=== PATIENT | female | born 1960 | race Caucasian/White ===

== ENCOUNTER → 2017-08-10 13:58 | Outpatient (CLI) | payer OTHER, SELFPAY ==
[2017-08-10 18:47] LABS: Anion Gap 9 (5-15); BUN 12 mg/dL (7-18); Calcium,Total 8.9 mg/dL (8.5-10.1); Chloride 106 mmol/L (98-107); EST Glomerular Filtration Rate 78 mL/min (>60); Est Glom Filt Rate - Afr Amer 95 mL/min (>60); Estradiol < 11.0 pg/mL; Glucose 89 mg/dL (74-106); Potassium 3.6 mmol/L (3.5-5.1); Sodium Level 141 mmol/L (136-145); Thyroid Stim Hormone (TSH) 0.73 uIU/mL (0.358-3.74)
[2017-08-12 11:32] LABS: DHEA Sulfate 58.9 ug/dL (29.4-220.5)
== END ==
LOC: MFPLAB 13:58
PROVIDERS: Family Provider Family Medicine; PCP Family Medicine; Visit Provider Family Medicine
DX: L67.8 Other hair color and hair shaft abnormalities (principal); I10 Essential (primary) hypertension
CPT/HCPCS: 36415; 80048; 82533; 82627; 82670; 84403; 84443; 82626

== ENCOUNTER 2017-12-17 12:30 | Outpatient (RCR) | payer OTHER, SELFPAY ==
--- NOTE | 2017-11-30 13:24 | HP.PTEVAL_ITS ---
Patient's Visit Information MIKE PERDOMO is a 57 year old F referred to Physical Therapy by Miles Faustin with a diagnosis of L shoulder pain. Date of Evaluation: 11/30/17 Physical Therapist: Abdoulaye Garcia DPT, [place] - Visit Plan Frequency: up to 3x/week Duration: 4-6 Weeks Plan: 3x/week for 2 weeks then weeklya s needed for. 1. US nonthermal to L supraspinatus. 2. Gentle PROM and grade 1-2 mobs to g-h joint L. 3. Teach scap and RC strength and progress to HEP. 4. focus on posture and activity modification to diminish inflammation. - Subjective Subjective: L shoulder i can't lift it Hurts when she tries to lift. Has been this way for 3-4 months insidously. Carries a bag on shoulder. 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 It is painful every day at work. usually OK at rest. Pushing car door opens hurts or turning wheel with L hand. Sleep is interrupted as she tends to be a L side sleeper. Dressing putting shirts on is painful. R handed so can do most of home duties. Read is hobby. - Pain R shoulder pain Pain Intensity (Out of 10): 0 Pain Intensity Range: 0, 8 Comment: pushing and lifting. - Objective Posture is forward head and protracted scapula. Tender to palpation in supra and infra muscle belly and more so over supra tendon. Lifting L UE overhead is painful but full aROM flexion and only to 90 abduction. long ever arm more painful than short. PROM full and much less painful flexion adn abd. IR/ER active is WNL, slight L IR main. Elbow and wrist AROM WFL. R shoulder AROM normal. strength L ext rotation strong and painful, IR strong, flexion and empty can and abduction all painful and 3+ in willing range. bicep and tricep WNL strengtha dn without pain. + L juan Jeffrey and + L Amelia. , - ext rotation lag test. C/S AROM WFL and 60 ext, 65 B rotation without pain. - c/s compression test today - Goals Goal 1:: Patient report pain 1/10 at worst and 75% better overall. Goal Time Frame: 4-6 Weeks Goal 2:: Lift L UE overhead without pain into abduction Goal Time Frame: 4-6 Weeks Goal 3:: Sleep without waking at night or interruption. Goal Time Frame: 4-6 Weeks Goal 4:: Dress self without pain Goal Time Frame: 4-6 Weeks Goal 5:: Work without noticing increased pain. Goal Time Frame: 4-6 Weeks - Rehabilitation Potential Physical Therapy Diagnosis: L supraspinatus tendonits, impingement. Rehabilitation Potential: Good - Anticipated Interventions Patient/Client Instruction: Educate patient on: Condition, Plan of Care For the Purpose of:: To decrease pain, To increase ROM, To improve performance and independence with ADL's, To improve ability of physical actions for home/ community/work/leisure Therapeutic Exercise to Include: Strength training, Passive ROM, Active ROM, Scapular Strength/Stabilization Comment: HILARY adn postural/scapula strength. For the Purpose of:: To decrease pain, To increase ROM, To improve muscle performance and motor function, To improve ability of physical actions for home/ community/work/leisure Manual Therapy Techniques to Include: Mobilization, Passive ROM For the Purpose of:: To decrease pain, To improve nutrient delivery to tissue, To improve ability of physical actions for home/community/work/leisure Cryotherapy (ice pack, ice massage): Yes Ultrasound (thermal/non thermal): Yes - nonthermal to L supraspinatus For the Purpose of:: To decrease pain, To improve ability of physical actions for home/community/work/leisure Thank you for the opportunity to evaluate your patient. For Medicare and Medicare HMO plans, please review the plan of care and approve it. It will need to be FAXED BACK to us at [phone] for Medicare purposes. Please let me know if there are questions or concerns regarding this plan of care. Physician Signature: Date:
--- NOTE | 2017-12-17 13:23 | HP.PTDCSUM_ITS ---
HP - PT D/C Summary It has been my pleasure to treat MIKE PERDOMO under orders from Miles Faustin, for the diagnosis of L shoulder pain for a total of 7 visit( s). Discharge Date: 12/17/17 Please see the following information for a summary of their discharge status. - Subjective Subjective: Still gets Pain Lshoulder with lifting but ROM is a little better. Co-workers help with heavier lifting. still hurts to get dressed with shirts and reaching OH. Pain to 8/10 transiently. No pain at rest. Sleep is better on back. No f/u with doctor Roxie. - Pain R shoulder pain Pain Intensity (Out of 10): 0 left shoulder Pain Intensity (Out of 10): 0 - Overall Improvement % Improvement: 25 - Objective Objective/Function: Full aROM but pain over 120 abd and flexion with Long lever arm. Unable to abd with IR L shoulder. Strength in er 4- adn ir 4. Pain with ext rotation. Flexion and abduction strength at 4 adn 3+ respectively with pain. OVERALL VERY LITTLE IMPROVEMENT BUT NO POSITIVE ROTATOR CUFF TESTS(EXT ROTATION LAG TEST OR DROP ARM TEST) - Goals Goal 1:: Patient report pain 1/10 at worst and 75% better overall. Goal Progress: Not Progressing Goal 2:: Lift L UE overhead without pain into abduction Goal Progress: Not Progressing Goal 3:: Sleep without waking at night or interruption. Goal Progress: Progressing Goal 4:: Dress self without pain Goal Progress: Not Progressing Goal 5:: Work without noticing increased pain. Goal Progress: avoiding OH - Plan Plan: D/C , RECOMMEND RETURN TO DOCTOR FOR NEXT MEDICAL STEP(MRI) PROGRESS IS VERY SLOW. - D/C Information Discharge Comments: Pt to return to doctor for next medical step as progress is frustratingly slow. If there are questions or concerns regarding this patient's physical therapy, please feel free to call me at [phone]. Thank you for the referral of this patient. Sincerely, Abdoulaye Garcia, DPT, [place]
== END 2017-12-17 19:00 | disposition home or self-care (01) ==
LOC: PT 12:30
PROVIDERS: Family Provider Family Medicine; PCP Family Medicine; Visit Provider Family Medicine
DX: S46.012D Strain of muscle(s) and tendon(s) of the rotator cuff of left shoulder, subsequent encounter (principal)
CPT/HCPCS: 97035; 97110; 97140; 97162; 97530

== ENCOUNTER → 2018-02-15 16:41 | Outpatient (CLI) | payer OTHER, SELFPAY ==
--- NOTE | 2018-02-15 16:44 | RAD_ITS ---
STUDY: X-RAY - LEFT SHOULDER REASON FOR EXAM: Female, 57 years old. Limited range of motion x6 months TECHNIQUE: 4 view(s) of the shoulder. COMPARISON: None. FINDINGS: There is mild degenerative arthrosis of the glenohumeral articulation. There is degenerative arthrosis of the acromioclavicular joint without inferior osseous spur formation. Normal acromion. Normal humeral head and visualized proximal humerus. The soft tissue structures are unremarkable. Normal visualized pulmonary apex. RAD/Shoulder min 2 Views IMPRESSION: Degenerative arthrosis Electronically Signed: Gurjit Lea MD at 17:43 EST , Service support ,
== END ==
LOC: RAD.FUTURE 16:42
PROVIDERS: Family Provider Family Medicine; PCP Family Medicine; Referring Provider Family Medicine; Visit Provider Family Medicine
DX: M25.512 Pain in left shoulder (principal)
CPT/HCPCS: 73030

== ENCOUNTER → 2018-02-23 17:24 | Outpatient (CLI) | payer OTHER, SELFPAY ==
--- NOTE | 2018-02-23 18:15 | MRI_ITS ---
STUDY: MRI LEFT SHOULDER REASON FOR EXAM: Left shoulder pain and decreased range of motion for one year, no specific injury. TECHNIQUE: Standardized fat and water weighted pulse sequences were obtained in all 3 orthogonal planes. COMPARISON: Radiographs 02/15/2018. FINDINGS: There is supraspinatus and infraspinatus tendinosis (T2 coronal images 10-15) without discrete tendon tear. Normal subscapularis tendon. Normal teres minor tendon. There is a small cyst at the supraspinatus musculotendinous junction (T2 coronal image 12) measuring 0.5 cm in length. Normal infraspinatus muscle. Normal subscapularis muscle. Normal teres minor muscle. Normal glenohumeral articulation. There is mild cystic change/bone edema in the anterior aspect of the greater tuberosity. Normal biceps labral complex. Normal intracapsular long biceps tendon. Normal labrum. Normal capsulo- ligamentous complex. There is acromioclavicular arthrosis with an undersurface osteophyte of the distal clavicle (T2 sagittal image 7). There is a Type I morphology (flat undersurface), with a neutral orientation. There is a small volume of subacromial-subdeltoid bursal fluid (T2 coronal images 8-15). Normal visualized coracohumeral and coracoacromial ligaments. Normal deltoid muscle. Normal trapezius muscle. MRI/Upper Ext Joint Only(Routine) IMPRESSION: Supraspinatus and infraspinatus tendinosis without demonstrated rotator cuff tear. Acromioclavicular arthrosis. Mild subacromial-subdeltoid bursitis. Electronically Signed: Bill Nicolas MD at 13:00 EST Tel , Service support ,
== END ==
LOC: MRI 17:25
PROVIDERS: Family Provider Family Medicine; PCP Family Medicine; Referring Provider Family Medicine; Visit Provider Family Medicine
DX: M25.512 Pain in left shoulder (principal)
CPT/HCPCS: 73221

== ENCOUNTER → 2018-05-18 19:13 | Outpatient (CLI) | payer OTHER, SELFPAY ==
[2018-05-18 19:14] LABS: Bacteria 0 SEEN /hpf (None Seen); Mucous, Urine 0 SEEN /hpf (<or=2+)
[2018-05-18 19:43] LABS: Color, Urine Yellow (Yellow); Glucose, Dipstick Normal (Normal); Ketone-Dipstick Negative (Negative); Leukocyte Esterase-Dipstick Negative /ul (Negative); Nitrite-Dipstick Negative (Negative); Occult Blood-Urine 50 /ul (Negative); Protein-Dipstick Negative (Negative); Urine Bilirubin Dipstick Negative (Negative); Urine Clarity Clear (Clear); Urine Urobilinogen Normal (Normal)
[2018-05-18 19:49] LABS: Red Blood Cells-Urine 5-10 SEEN /hpf (0-5); Squamous Epithelial Cells - UA 0-5 SEEN /hpf (5-10); White Blood Cells 0-5 SEEN /hpf (0-5)
== END ==
PROVIDERS: Family Provider Family Medicine; PCP Family Medicine; Referring Provider Family Medicine; Visit Provider Family Medicine
DX: I10 Essential (primary) hypertension (principal)
CPT/HCPCS: 81001; 87086

== ENCOUNTER → 2018-08-31 12:03 | Outpatient (CLI) | payer OTHER, SELFPAY ==
--- NOTE | 2018-08-31 12:10 | RAD_ITS ---
STUDY: X-RAY - PELVIS AND BILATERAL HIPS REASON FOR EXAM: Female, 57 years old. Left-sided hip and back pain. TECHNIQUE: AP view of the pelvis.? 2 views of the right hip, and 2 views of the left hip were obtained. COMPARISON: None. FINDINGS: There is a non-specific bowel gas pattern. There are occasional calcifications of a vascular nature projecting in the pelvic soft tissues. Incidental note of degenerative change in the lower lumbar spine as well as a transitional lumbosacral vertebra with a complete fusion to the upper sacral ala. Normal bilateral iliac wings, sacroiliac joints and visualized sacrum. Normal bilateral superior and inferior pubic rami. Normal pubic symphysis. Normal bilateral ischial tuberosities. There is no demonstrated osseous destructive lesion or acute fracture. There are early osteoarthritic changes of the right femoral head with marginal osteophyte formation. There is osteoarthritic spur formation of the right acetabular rim. Normal right hip joint. Normal visualized left femoral head. Normal left acetabulum. Normal left hip joint. RAD/Hips B/L min 2 views w/ Pelvis IMPRESSION: 1. 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 2. Degenerative changes noted in the lower lumbar spine and right hip. Electronically Signed: Gurjit Shell MD at 15:06 EDT , Service support ,
--- NOTE | 2018-08-31 12:10 | RAD_ITS ---
STUDY: X-RAY - SACROILIAC JOINTS REASON FOR EXAM: Female, 57 years old. Lumbar radiculopathy. TECHNIQUE: 3 view(s) of the sacroiliac joints were obtained. COMPARISON: None. FINDINGS: Normal bilateral sacroiliac joints. Incidental note of a transitional lumbosacral vertebra with incomplete fusion of the left transverse process of the upper sacral ala. Otherwise, normal visualized sacral ala and sacrum. There are multilevel degenerative changes of the lumbar spine. Normal visualized iliac bones. There are occasional small vascular calcifications projecting the pelvic soft tissues. RAD/S-I Jts 3 or More Views IMPRESSION: Degenerative changes of the lower lumbar spine, as well as transitional lumbosacral vertebra with incomplete fusion to the upper sacral ala. The sacroiliac joints themselves are unremarkable. Electronically Signed: Gurjit Shell MD at 15:08 EDT , Service support ,
--- NOTE | 2018-08-31 12:10 | RAD_ITS ---
STUDY: X-RAY - LUMBAR SPINE REASON FOR EXAM: Female, 57 years old. Lumbar radiculopathy. TECHNIQUE: 5 view(s) of the lumbar spine were obtained. COMPARISON: None FINDINGS: Normal lumbar lordosis. There is a 9-10 degree dextroscoliosis of the lumbar spine centered at L3-4. There is minor retrolisthesis of L2 on L3 as well as borderline rightward subluxation of L3 on L4 and L4 on L5. Incidental note of a transitional lumbosacral vertebra with incomplete fusion of its left transverse processes to the upper sacral ala. There is multilevel endplate spondylosis of the lumbar vertebrae. There is multi-level degenerative disc disease with multi-level disc space narrowing. There is no demonstrated osseous destructive lesion or acute fracture. There are degenerative arthroses of the bilateral facets between the L5 vertebra and transitional body, as well as L4-5 on the right. There is atherosclerotic calcification of the abdominal aorta. RAD/L/S Spine Min 4 Views IMPRESSION: Degenerative changes of the spine, as detailed above. Also noted is a transitional lumbosacral vertebra with incomplete osseous fusion of its transverse processes to the upper sacral ala. Electronically Signed: Gurjit Shell MD at 15:11 EDT , Service support ,
[2018-08-31 12:33] LABS: Mucous, Urine 0 SEEN /hpf (<or=2+)
[2018-08-31 14:03] LABS: Color, Urine Yellow (Yellow); Glucose, Dipstick Normal (Normal); Ketone-Dipstick Negative (Negative); Leukocyte Esterase-Dipstick 25 /ul (Negative); Nitrite-Dipstick Negative (Negative); Occult Blood-Urine 25 /ul (Negative); Protein-Dipstick Negative (Negative); Specific Gravity, Urine 1.015 (1.002-1.030); Urine Bilirubin Dipstick Negative (Negative); Urine Clarity Clear (Clear); Urine Urobilinogen Normal (Normal)
[2018-08-31 14:18] LABS: Bacteria 1+ /hpf (None Seen); Red Blood Cells-Urine 5-10 SEEN /hpf (0-5); Squamous Epithelial Cells - UA 5-10 SEEN /hpf (5-10); White Blood Cells 0-5 SEEN /hpf (0-5)
== END ==
LOC: MTRAD 12:07
PROVIDERS: Family Provider Family Medicine; PCP Family Medicine; Referring Provider Family Medicine; Visit Provider Family Medicine
DX: M54.16 Radiculopathy, lumbar region (principal); M25.559 Pain in unspecified hip
CPT/HCPCS: 72110; 72202; 73521; 81001

== ENCOUNTER → 2018-09-14 12:11 | Outpatient (CLI) | payer OTHER, SELFPAY ==
[2018-09-14 15:28] LABS: Absolute Lymphocyte Count 1.99 X10^3/ul (0.83-4.51); Absolute Neutrophil Count 6.3 X10^3/uL (2.0-7.7); Basophil# 0.05 X10^3/uL; Basophil% 0.5 % (0-1); Eosinophil# 0.28 X10^3/uL; Hematocrit 48.2 % (37-47); Lymphocyte # 1.99 X10^3/ul (4.0); Lymphocyte % 21.1 % (19-41); Mean Corp Hgb Conc 33.2 g/gl (32-36); Mean Corpuscular Hgb 29.7 pg (27.0-32.0); Mean Corpuscular Volume 89.4 fL (81-99); Mean Platelet Vol. 9.5 fl (6.2-12.0); Monocyte# 0.79 X10^3/uL; Monocyte% 8.4 % (0-10); Neutrophil % 66.7 % (47-70); Platelet Count 245 K/mm3 (150-450); RBC Distribution Width CV 13.7 % (11.6-14.6); RBC Distribution Width SD 44.4 fl (35.1-43.9); Red Blood Count 5.39 M/mm3 (4.2-5.4); White Blood Count 9.4 K/mm3 (4.4-11.0)
[2018-09-14 15:34] LABS: POSITIVE COUNT NO; POSITIVE DIFFERENTIAL NO; POSITIVE MORPHOLOGY NO
[2018-09-14 15:56] LABS: AST(SGOT) 22 U/L (15-37); Alanine Aminotransfer ALT/SGPT 27 U/L (13-56); Albumin, Serum 3.9 g/dL (3.2-5.0); Alkaline Phosphatase 66 U/L (45-117); Anion Gap 5 (5-15); BUN 17 mg/dL (7-18); BUN/Creat Ratio 19.4 RATIO (10-20); Chloride 104 mmol/L (98-107); Cholesterol 151 mg/dL (200); Creatinine, Serum 0.88 mg/dL (0.55-1.02); EST Glomerular Filtration Rate 70 mL/min (>60); Est Glom Filt Rate - Afr Amer 85 mL/min (>60); Globulin 3.8 g/dL (2.2-4.2); Glucose 88 mg/dL (74-106); High Density Lipoprotein 33 mg/dL; Potassium 3.4 mmol/L (3.5-5.1); Protein, Total 7.7 g/dL (6.4-8.2); Sodium Level 136 mmol/L (136-145); Thyroid Stim Hormone (TSH) 0.98 uIU/mL (0.358-3.74); Triglycerides 232 mg/dL; Very Low Density Lipoprotein 46 mg/dL (5-40)
[2018-09-14 16:14] LABS: Vitamin D,25 Hydroxy 52.9 ng/mL (29.95-100.01)
[2018-09-15 14:21] LABS: Ferritin 247 ng/mL (8-252); Iron 46 ug/dL (50-170); Iron Binding Capacity,Total 303 ug/dL (250-450); PERCENT IRON SATURATION 15.2 % (15.0-55.0)
== END ==
LOC: MFPLAB 12:11
PROVIDERS: Family Provider Family Medicine; PCP Family Medicine; Referring Provider Family Medicine; Visit Provider Family Medicine
DX: D75.1 Secondary polycythemia (principal); E78.5 Hyperlipidemia, unspecified; Z72.0 Tobacco use; I10 Essential (primary) hypertension; E55.9 Vitamin D deficiency, unspecified
CPT/HCPCS: 36415; 80053; 80061; 82306; 82728; 83540; 83550; 84443; 85025

== ENCOUNTER → 2018-09-16 11:36 | Outpatient (CLI) | payer OTHER, SELFPAY ==
[2018-09-18 11:33] LABS: Transferrin 251 mg/dL (200-370)
== END ==
LOC: MFPLAB 11:37
PROVIDERS: Family Provider Family Medicine; PCP Family Medicine; Referring Provider Family Medicine; Visit Provider Family Medicine
DX: D75.1 Secondary polycythemia (principal)
CPT/HCPCS: 36415; 84466

== ENCOUNTER → 2018-09-21 | Outpatient (CLI) | payer OTHER, SELFPAY ==
--- NOTE | 2018-09-21 13:15 | BI_ITS ---
MAMMOGRAPHY - BILATERAL SCREENING REASON FOR EXAM: Female, 57 years old. Routine annual screening examination. PERTINENT HISTORY: Non-contributory. TECHNIQUE: Digital bilateral breast ethel (3D mammographic acquisition) in the CC and MLO projections. 2-D mediolateral oblique (MLO) and craniocaudad (CC) views of both breasts were obtained. CAD: Full Field Digital Mammography with Computer Added Detection was performed. COMPARISON: Comparison is made with prior study dated October 06, 2007. FINDINGS: Breast Composition: There are scattered areas of fibroglandular density. There are no dominant masses or suspicious calcifications. No other significant abnormalities are identified. There has been no significant change since the prior study. BI/SCREEN MAMM (CAD) W/ETHEL BILAT IMPRESSION: Stable bilateral screening mammogram. Yearly follow-up mammogram recommended. (A) ASSESSMENT CATEGORY: BIRADS Category 1: Negative. A letter regarding these results will be sent to the patient by the facility within 30 days. Approximately 10% of breast cancers are not detected by mammography. A normal mammogram should not delay biopsy of a clinically suspicious abnormality. [id number] Electronically Signed: Damon Jimenez, at 15:25 EDT , Service support ,
== END | disposition home or self-care (01) ==
LOC: OPBI 13:14
PROVIDERS: PCP Family Medicine; Referring Provider Family Medicine; Visit Provider Family Medicine
DX: Z12.31 Encounter for screening mammogram for malignant neoplasm of breast (principal)
CPT/HCPCS: 77063; 77067

== ENCOUNTER → 2018-10-04 15:38 | Outpatient (CLI) | payer OTHER, SELFPAY ==
--- NOTE | 2018-10-04 15:43 | CT_ITS ---
STUDY: CT ABDOMEN AND PELVIS WITH AND WITHOUT CONTRAST REASON FOR EXAM: Female, 58 years old. Microscopic hematuria. RADIATION DOSAGE (If Supplied By Facility): CTDIvol = ( 19.42 ) mGy, DLP = ( 2167.00 ) mGycm TECHNIQUE: Transaxial images were obtained from the dome of the diaphragm to the symphysis pubis without oral contrast. 100ml IV/Oral Isovue 300 was administered. Sagittal and coronal images were reconstructed. Individualized dose optimization techniques were used for this CT. COMPARISON: None. FINDINGS: The visualized lung bases are unremarkable. The visualized portions of the heart are within normal limits. Normal shape and size of the liver. 1.9 cm low-attenuation lesion in the posterior dome of the liver on axial image 21. 1.6 cm low-attenuation lesion in the periphery of the anterior segment of the right hepatic lobe, image 26. These may be hemangiomas. Suggest further evaluation with dynamic contrast CT of the liver. Normal gallbladder and extrahepatic biliary system. Normal spleen. Normal pancreas. Normal bilateral adrenal glands. No acute abnormalities of the kidneys. Bilateral nonobstructing renal stones are seen including a 6 mm stone in the lower pole of the right kidney and several stones in all segments of the left kidney. Multiple left cortical scars. Symmetric renal contrast. Normal collecting systems. Normal visualized stomach. Normal small intestine. Normal colon. The appendix is visualized and appears normal. There is diffuse atherosclerotic calcification of the abdominal aorta, without a demonstrated aneurysm. Normal inferior vena cava. Normal retroperitoneum. Normal urinary bladder. There is absence of the uterus consistent with a prior hysterectomy. Normal abdominal wall. There are diffuse degenerative changes of the visualized lumbar spine. CT/CT Abd/Pelvis W/WO Contrast IMPRESSION: There is no definite acute abnormality. Numerous bilateral renal stones with no current obstruction. Low-attenuation lesions in the liver, suggestive of hemangiomas. Dynamic contrast CT recommended. Electronically Signed: Saul Wallace MD at 17:08 EDT , Service support ,
== END ==
PROVIDERS: Family Provider Family Medicine; PCP Family Medicine; Referring Provider Family Medicine; Visit Provider Family Medicine
DX: R31.29 Other microscopic hematuria (principal)
CPT/HCPCS: 74178; Q9967

== ENCOUNTER → 2018-11-22 07:40 | Outpatient (CLI) | payer OTHER, SELFPAY ==
--- NOTE | 2018-11-22 07:43 | CT_ITS ---
STUDY: CT ABDOMEN WITH CONTRAST REASON FOR EXAM: Female, 58 years old. RADIATION DOSAGE (If Supplied By Facility): CTDIvol = ( 17.96 ) mGy, DLP = ( 1722.57 ) mGycm TECHNIQUE: Transaxial images were obtained post I.V. administration of 100ml ml of Isovue 300 contrast, and without oral contrast. Sagittal and coronal images were reconstructed. Individualized dose optimization techniques were used for this CT. COMPARISON: CT abdomen and pelvis 10/04/2018 FINDINGS: Body wall soft tissues: No acute process. Osseous structures: No acute process. Multilevel low thoracic and lumbar degenerative disc disease and facet hypertrophy contributing to at least mild multilevel foraminal stenosis somewhat more prominent at L4-L5 and L3-L4. Mild scoliosis and osteopenia. Inferior chest: Clear lungs, no cardiomegaly or pericardial effusion. Mild thickening of the wall the distal esophagus. Hepatobiliary: Small foci of fatty infiltration of the liver, segment 4, and adjacent left liver, flanking the ligamentum. There are no suspicious liver lesions. Unremarkable gallbladder and biliary tree. Pancreas: Normal. Spleen: Normal. Adrenal glands: Normal. Urinary tract: No acute process. Stable tiny renal cysts. Small nonobstructing calyceal calculi of the left kidney, the largest measuring about 4 mm. Retroperitoneum: Normal. Vasculature: Mild aortic atherosclerosis. Stomach: Normal. Small bowel: Visualized portions exhibit no acute process. Large bowel: Visualized portions exhibit no acute process. CT/Abdomen WITH IV Contrast IMPRESSION: Focal fatty infiltration of liver. No suspicious lesions. Urolithiasis without hydronephrosis. Nonobstructing calyceal calculi are stable compared to prior imaging. Electronically Signed: Shaq Hunt MD at 9:57 EDT Tel , Service support ,
== END ==
LOC: CT 07:40
PROVIDERS: Family Provider Family Medicine; PCP Family Medicine; Referring Provider Family Medicine; Visit Provider Family Medicine
DX: K76.9 Liver disease, unspecified (principal)
CPT/HCPCS: 74160; Q9967

== ENCOUNTER → 2019-06-29 13:39 | Outpatient (CLI) | payer OTHER, SELFPAY ==
[2019-06-29 13:44] LABS: Bacteria 0 SEEN /hpf (None Seen); Mucous, Urine 0 SEEN /hpf (<or=2+)
[2019-06-29 15:28] LABS: Color, Urine Yellow (Yellow); Glucose, Dipstick Normal (Normal); Ketone-Dipstick Negative (Negative); Leukocyte Esterase-Dipstick 25 /ul (Negative); Nitrite-Dipstick Negative (Negative); Occult Blood-Urine 25 /ul (Negative); Protein-Dipstick Negative (Negative); Urine Bilirubin Dipstick Negative (Negative); Urine Clarity Clear (Clear); Urine Urobilinogen Normal (Normal)
[2019-06-29 15:29] LABS: Absolute Lymphocyte Count 2.05 X10^3/uL (0.83-4.51); Absolute Neutrophil Count 4.3 X10^3/uL (2.0-7.7); Basophil# 0.08 X10^3/uL; Eosinophil# 0.25 X10^3/uL; Eosinophils% 3.3 % (0-5); Hematocrit 47.9 % (37-47); Hemoglobin 15.6 g/dL (12.0-15.0); Lymphocyte # 2.05 X10^3/ul (4.0); Lymphocyte % 26.8 % (19-41); Mean Corp Hgb Conc 32.6 g/dL (32-36); Mean Corpuscular Hgb 29.8 pg (27.0-32.0); Mean Corpuscular Volume 91.6 fL (81-99); Monocyte# 0.87 X10^3/uL; Monocyte% 11.4 % (0-10); NRBC Flagged by Analyzer 0 % (0-5); Neutrophil # 4.34 X10^3/uL (2.7-7.7); Neutrophil % 56.8 % (47-70); Platelet Count 265 K/mm3 (150-450); RBC Distribution Width CV 13.2 % (11.6-14.6); RBC Distribution Width SD 44.7 fl (35.1-43.9); Red Blood Count 5.23 M/mm3 (4.2-5.4); White Blood Count 7.6 K/mm3 (4.4-11.0)
[2019-06-29 15:51] LABS: Red Blood Cells-Urine 0-5 SEEN /hpf (0-5); Squamous Epithelial Cells - UA 0-5 SEEN /hpf (5-10); White Blood Cells 0-5 SEEN /hpf (0-5)
[2019-06-29 16:08] LABS: Vitamin D,25 Hydroxy 62.5 ng/mL
[2019-06-29 16:11] LABS: ALB/GLOB Ratio 1.1 RATIO (0.9-2.4); AST(SGOT) 20 U/L (15-37); Alanine Aminotransfer ALT/SGPT 27 U/L (13-56); Alkaline Phosphatase 64 U/L (45-117); Anion Gap 7 (5-15); BUN 20 mg/dL (7-18); BUN/Creat Ratio 27.4 RATIO (10-20); Calcium,Total 9.1 mg/dL (8.5-10.1); Chloride 101 mmol/L (98-107); Cholesterol 140 mg/dL (200); Creatinine, Serum 0.73 mg/dL (0.55-1.02); EST Glomerular Filtration Rate 87 mL/min (>60); Est Glom Filt Rate - Afr Amer 105 mL/min (>60); Globulin 3.7 g/dL (2.2-4.2); Glucose 77 mg/dL (74-106); High Density Lipoprotein 38 mg/dL; Potassium 3.4 mmol/L (3.5-5.1); Protein, Total 7.7 g/dL (6.4-8.2); Sodium Level 136 mmol/L (136-145); Triglycerides 144 mg/dL; Very Low Density Lipoprotein 29 mg/dL (5-40)
== END ==
LOC: MFPLAB 13:40
PROVIDERS: PCP Family Medicine; Referring Provider Family Medicine; Visit Provider Family Medicine
DX: K76.9 Liver disease, unspecified (principal); E78.5 Hyperlipidemia, unspecified; E55.9 Vitamin D deficiency, unspecified; Z72.0 Tobacco use
CPT/HCPCS: 36415; 80053; 80061; 81001; 82306; 85025

== ENCOUNTER → 2019-09-27 | Outpatient (CLI) | payer OTHER, SELFPAY ==
[2019-09-27 15:24] LABS: Absolute Lymphocyte Count 2.08 X10^3/uL (0.83-4.51); Absolute Neutrophil Count 5.4 X10^3/uL (2.0-7.7); Basophil# 0.06 X10^3/uL; Basophil% 0.7 % (0-1); Eosinophil# 0.23 X10^3/uL; Eosinophils% 2.7 % (0-5); Hematocrit 46.5 % (37-47); Hemoglobin 15.1 g/dL (12.0-15.0); Lymphocyte # 2.08 X10^3/ul (4.0); Lymphocyte % 24.1 % (19-41); Mean Corp Hgb Conc 32.5 g/dL (32-36); Mean Corpuscular Hgb 30.2 pg (27.0-32.0); Mean Platelet Vol. 9.1 fl (6.2-12.0); Monocyte# 0.79 X10^3/uL; Monocyte% 9.1 % (0-10); NRBC Flagged by Analyzer 0 % (0-5); Neutrophil # 5.44 X10^3/uL (2.7-7.7); Neutrophil % 62.9 % (47-70); Platelet Count 248 K/mm3 (150-450); RBC Distribution Width CV 13.1 % (11.6-14.6); RBC Distribution Width SD 44.7 fl (35.1-43.9); White Blood Count 8.6 K/mm3 (4.4-11.0)
[2019-09-27 16:12] LABS: Ferritin 180 ng/mL (8-252); Iron 34 ug/dL (50-170); Iron Binding Capacity,Total 318 ug/dL (250-450)
[2019-09-29 05:26] LABS: Transferrin 235 mg/dL (192-364)
== END | disposition home or self-care (01) ==
LOC: MFPLAB 13:56
PROVIDERS: PCP Family Medicine; Referring Provider Family Medicine; Visit Provider Family Medicine
DX: D75.1 Secondary polycythemia (principal)
CPT/HCPCS: 36415; 82728; 83540; 83550; 84466; 85025

== ENCOUNTER → 2019-10-04 | Outpatient (CLI) | payer OTHER, SELFPAY ==
--- NOTE | 2019-10-04 14:52 | CT_ITS ---
STUDY: LOW DOSE CT LUNG CANCER SCREENING REASON FOR EXAM: Female, 59 years old. Screening. Tobacco use. 30 pack-year history. RADIATION DOSAGE (If Supplied By Facility): CTDIvol = ( 2.55 ) mGy, DLP = ( 84.87 ) mGycm TECHNIQUE: No contrast was administered. Low dose technique was utilized (average mAS-38 and kVp 120). 1.25 mm axial source images with a slice interval of 1.25-mm were reconstructed in lung windows. 2.5 mm axial source images with a slice interval of 2.5-mm were reconstructed in lung windows. 5.0 mm axial source images with a slice interval of 5.0-mm were reconstructed in soft tissue windows. Nodule measured using lung windows on PACS and/or independent workstation with automated measurement of minimum and maximum diameter. Nodule measurement reported as average diameter rounded to the nearest whole number. Growth is defined as an increase ins size of greater than 1.5 mm. COMPARISON: None. NODULES: Nodule #: 1 Density: Solid Lung location: Right upper lobe: 1 cm from pleura Location in series: Series Number: [id number] Image: 42 Size - D1 x D2 mm: 2 x 2 mm: 2 mm average diameter Margin: Indistinct Shape: Round Calcification: No Fat: No Temporal comparison: None Nodule #: 2 Density: Solid Lung location: Left upper lobe: 0.3 cm from pleura Location in series: Series Number: [id number] Image: 78 Size - D1 x D2 mm: 5 x 4 mm: 5 mm average diameter Margin: Smooth Shape: Oval Calcification: No Fat: No Temporal comparison: None Nodule #: 3 Density: Solid Lung location: Right middle lobe: 0.9 cm from pleura Location in series: Series Number: [id number] Image: 128 Size - D1 x D2 mm: 3 x 3 mm: 3 mm average diameter Margin: Irregular Shape: Rounded Calcification: No Fat: No Temporal comparison: None Nodule #: 4 Density: Solid Lung location: Left upper lobe: Pleural-based Location in series: Series Number: [id number] Image: 153 Size - D1 x D2 mm: 4 x 4 mm: 4 mm average diameter Margin: Smooth Shape: Round Calcification: No Fat: No Temporal comparison: None Total lung nodules (excluding granulomas): 4 Emphysema: None Endobronchial lesion: None Aorta: Minimal atherosclerotic changes without aneurysm. Coronary arteries: Minimal coronary artery calcifications. Heart: Normal in size Pulmonary artery: Normal Mediastinal nodes: None Other chest and abdominal findings: Degenerative changes of the thoracic spine. CT/Low Dose CT Lung Screening IMPRESSION: Lung-RADS category 2 - Continue annual screening with LDCT in 12 months. IMPORTANT NOTES FOR USE: ACR Lung-RADS Version 1.0 Assessment Categories Release Date: August 01, 2013 Category: Coded 0-4 bases on nodule(s) with highest degree of suspicion. Negative screen is defined as categories 1 and 2; a positive screen is defined as categories 3 and 4. Category 3 and 4A nodules that are unchanged on interval CT should be coded as category 2, and individuals returned to screening in 12 months. Category 4X: Category 3 or 4 nodules with additional imaging findings that increase the suspicion of lung cancer, such as spiculation, GGN that doubles in size in 1 year, enlarged lymph notes, etc. Category Modifiers: S (significant finding unrelated to lung cancer) and C (prior history of treated lung cancer) may be added to the 0-4 Lung-RADS Electronically Signed: Reji Modi DO at 16:03 EDT Tel [phone], Service support ,
== END | disposition home or self-care (01) ==
LOC: CT 14:49
PROVIDERS: PCP Family Medicine; Referring Provider Family Medicine; Visit Provider Family Medicine
DX: F17.210 Nicotine dependence, cigarettes, uncomplicated (principal); Z12.2 Encounter for screening for malignant neoplasm of respiratory organs
CPT/HCPCS: G0297

== ENCOUNTER → 2019-12-20 | Outpatient (CLI) | payer OTHER, SELFPAY ==
[2019-12-20 08:14] LABS: Bacteria 0 SEEN /hpf (None Seen)
[2019-12-20 10:09] LABS: Absolute Lymphocyte Count 1.63 X10^3/uL (0.83-4.51); Absolute Neutrophil Count 6.7 X10^3/uL (2.0-7.7); Basophil# 0.07 X10^3/uL; Basophil% 0.7 % (0-1); Eosinophil# 0.25 X10^3/uL; Eosinophils% 2.7 % (0-5); Hematocrit 47.2 % (37-47); Hemoglobin 15.5 g/dL (12.0-15.0); Lymphocyte # 1.63 X10^3/ul (4.0); Lymphocyte % 17.4 % (19-41); Mean Corp Hgb Conc 32.8 g/dL (32-36); Mean Corpuscular Hgb 30.3 pg (27.0-32.0); Mean Corpuscular Volume 92.2 fL (81-99); Mean Platelet Vol. 9.3 fl (6.2-12.0); Monocyte# 0.64 X10^3/uL; Monocyte% 6.8 % (0-10); NRBC Flagged by Analyzer 0 % (0-5); Neutrophil # 6.74 X10^3/uL (2.7-7.7); Neutrophil % 71.9 % (47-70); Platelet Count 263 K/mm3 (150-450); RBC Distribution Width CV 13.8 % (11.6-14.6); RBC Distribution Width SD 47.1 fl (35.1-43.9); Red Blood Count 5.12 M/mm3 (4.2-5.4); White Blood Count 9.4 K/mm3 (4.4-11.0)
[2019-12-20 10:29] LABS: ALB/GLOB Ratio 1.1 RATIO (0.9-2.4); AST(SGOT) 18 U/L (15-37); Alanine Aminotransfer ALT/SGPT 28 U/L (13-56); Albumin, Serum 3.9 g/dL (3.2-5.0); Alkaline Phosphatase 60 U/L (45-117); Anion Gap 6 (5-15); BUN 16 mg/dL (7-18); BUN/Creat Ratio 19.2 RATIO (10-20); Calcium,Total 9.3 mg/dL (8.5-10.1); Chloride 103 mmol/L (98-107); Cholesterol 142 mg/dL (200); Creatinine, Serum 0.83 mg/dL (0.55-1.02); EST Glomerular Filtration Rate 74 mL/min (>60); Est Glom Filt Rate - Afr Amer 90 mL/min (>60); Ferritin 165 ng/mL (8-252); Globulin 3.6 g/dL (2.2-4.2); Glucose 94 mg/dL (74-106); High Density Lipoprotein 48 mg/dL; Iron 43 ug/dL (50-170); Iron Binding Capacity,Total 397 ug/dL (250-450); Potassium 3.5 mmol/L (3.5-5.1); Protein, Total 7.5 g/dL (6.4-8.2); Sodium Level 138 mmol/L (136-145); Triglycerides 100 mg/dL; Very Low Density Lipoprotein 20 mg/dL (5-40)
[2019-12-20 10:31] LABS: Vitamin D,25 Hydroxy 69.9 ng/mL
[2019-12-20 10:45] LABS: Color, Urine Yellow (Yellow); Glucose, Dipstick Normal (Normal); Ketone-Dipstick Negative (Negative); Leukocyte Esterase-Dipstick 25 /ul (Negative); Nitrite-Dipstick Negative (Negative); Occult Blood-Urine 50 /ul (Negative); Protein-Dipstick Negative (Negative); Specific Gravity, Urine 1.025 (1.002-1.030); Urine Bilirubin Dipstick Negative (Negative); Urine Clarity Sl. Cloudy (Clear); Urine Urobilinogen Normal (Normal)
[2019-12-20 10:57] LABS: Red Blood Cells-Urine 0-5 SEEN /hpf (0-5); White Blood Cells 0-5 SEEN /hpf (0-5)
[2019-12-20 10:58] LABS: Mucous, Urine 1+ /hpf (<or=2+)
[2019-12-21 05:35] LABS: Transferrin 264 mg/dL (192-364)
== END | disposition home or self-care (01) ==
LOC: MFPLAB 08:10
PROVIDERS: PCP Family Medicine; Referring Provider Family Medicine; Visit Provider Family Medicine
DX: I10 Essential (primary) hypertension (principal); D75.1 Secondary polycythemia; E78.5 Hyperlipidemia, unspecified; E55.9 Vitamin D deficiency, unspecified; Z72.0 Tobacco use
CPT/HCPCS: 36415; 80053; 80061; 81001; 82306; 82728; 83540; 83550; 84466; 85025

== ENCOUNTER → 2020-05-29 11:53 | Outpatient (CLI) | payer OTHER, SELFPAY ==
[2020-05-29 11:56] LABS: Mucous, Urine 0 SEEN /hpf (<or=2+); Squamous Epithelial Cells - UA 0 SEEN /hpf (5-10)
[2020-05-29 15:18] LABS: Color, Urine Yellow (Yellow); Glucose, Dipstick Normal (Normal); Ketone-Dipstick Negative (Negative); Leukocyte Esterase-Dipstick Negative /ul (Negative); Nitrite-Dipstick Negative (Negative); Occult Blood-Urine 25 /ul (Negative); Protein-Dipstick Negative (Negative); Urine Bilirubin Dipstick Negative (Negative); Urine Clarity Clear (Clear); Urine Urobilinogen Normal (Normal)
[2020-05-29 15:20] LABS: Absolute Neutrophil Count 5.9 X10^3/uL (2.0-7.7); Basophil# 0.06 X10^3/uL; Basophil% 0.7 % (0-1); Eosinophil# 0.34 X10^3/uL; Eosinophils% 3.8 % (0-5); Hemoglobin 14.5 g/dL (12.0-15.0); Lymphocyte % 20.1 % (19-41); Mean Corp Hgb Conc 32.2 g/dL (32-36); Mean Corpuscular Hgb 29.6 pg (27.0-32.0); Mean Corpuscular Volume 91.8 fL (81-99); Mean Platelet Vol. 9.3 fl (6.2-12.0); Monocyte# 0.82 X10^3/uL; Monocyte% 9.1 % (0-10); NRBC Flagged by Analyzer 0 % (0-5); Neutrophil % 65.7 % (47-70); Platelet Count 272 K/mm3 (150-450); RBC Distribution Width CV 13.6 % (11.6-14.6); RBC Distribution Width SD 45.8 fl (35.1-43.9)
[2020-05-29 15:35] LABS: Bacteria RARE /hpf (None Seen); Red Blood Cells-Urine 0-5 SEEN /hpf (0-5); White Blood Cells 0-5 SEEN /hpf (0-5)
[2020-05-29 15:49] LABS: Vitamin D,25 Hydroxy 48.2 ng/mL
[2020-05-29 15:59] LABS: ALB/GLOB Ratio 1.2 RATIO (0.9-2.4); AST(SGOT) 13 U/L (15-37); Alanine Aminotransfer ALT/SGPT 23 U/L (13-56); Albumin, Serum 3.8 g/dL (3.2-5.0); Alkaline Phosphatase 55 U/L (45-117); Anion Gap 6 (5-15); BUN 21 mg/dL (7-18); BUN/Creat Ratio 25.3 RATIO (10-20); Chloride 106 mmol/L (98-107); Cholesterol 146 mg/dL (200); Creatinine, Serum 0.83 mg/dL (0.55-1.02); EST Glomerular Filtration Rate 75 mL/min (>60); Est Glom Filt Rate - Afr Amer 90 mL/min (>60); Ferritin 98 ng/mL (8-252); Globulin 3.3 g/dL (2.2-4.2); Glucose 85 mg/dL (74-106); High Density Lipoprotein 42 mg/dL; Iron 41 ug/dL (50-170); Iron Binding Capacity,Total 352 ug/dL (250-450); Potassium 3.3 mmol/L (3.5-5.1); Protein, Total 7.1 g/dL (6.4-8.2); Sodium Level 138 mmol/L (136-145); Thyroid Stim Hormone (TSH) 0.55 uIU/mL (0.358-3.74); Triglycerides 133 mg/dL; Very Low Density Lipoprotein 27 mg/dL (5-40)
== END ==
LOC: MFPLAB 11:55
PROVIDERS: PCP Family Medicine; Referring Provider Family Medicine; Visit Provider Family Medicine
DX: E78.5 Hyperlipidemia, unspecified (principal); I10 Essential (primary) hypertension; E55.9 Vitamin D deficiency, unspecified; E61.1 Iron deficiency
CPT/HCPCS: 36415; 80053; 80061; 81001; 82306; 82728; 83540; 83550; 84443; 85025

== ENCOUNTER → 2020-10-03 14:51 | Outpatient (CLI) | payer OTHER, SELFPAY ==
[2020-10-03 16:10] LABS: Amphetamine Urine VISTA NEGATIVE (<1000 ng/mL); Barbiturate Urine VISTA NEGATIVE (< 200 ng/mL); Benzodiazepine Urine VISTA NEGATIVE (< 200 ng/mL); Cocaine Urine VISTA NEGATIVE (< 300 ng/mL); Ecstacy Urine VISTA NEGATIVE (< 500 ng/mL); Methadone Urine VISTA NEGATIVE (< 300 ng/mL); PCP Urine VISTA NEGATIVE (< 25 ng/mL); THC Urine VISTA NEGATIVE (< 50 ng/mL); Vista UDS pH Range 5
[2020-10-03 16:18] LABS: BUP Internal Control LINE = VALID (VALID); Buprenorphine Drug Screen Negative (<10 ng/mL)
== END ==
PROVIDERS: PCP Family Medicine; Referring Provider Anesthesiology Pain Medicine; Visit Provider Anesthesiology Pain Medicine
DX: F11.20 Opioid dependence, uncomplicated (principal)
CPT/HCPCS: 80307

== ENCOUNTER → 2021-01-01 10:26 | Outpatient (CLI) | payer OTHER, SELFPAY ==
[2021-01-01 15:33] LABS: Absolute Lymphocyte Count 1.87 X10^3/uL (0.83-4.51); Absolute Neutrophil Count 5.5 X10^3/uL (2.0-7.7); Basophil# 0.05 X10^3/uL; Basophil% 0.6 % (0-1); Eosinophil# 0.56 X10^3/uL; Eosinophils% 6.4 % (0-5); Hematocrit 45.5 % (37-47); Hemoglobin 14.8 g/dL (12.0-15.0); Lymphocyte # 1.87 X10^3/ul (0.83-4.51); Lymphocyte % 21.4 % (19-41); Mean Corp Hgb Conc 32.5 g/dL (32-36); Mean Corpuscular Hgb 30.1 pg (27.0-32.0); Mean Corpuscular Volume 92.7 fL (81-99); Mean Platelet Vol. 9.8 fl (6.2-12.0); Monocyte# 0.71 X10^3/uL; Monocyte% 8.1 % (0-10); NRBC Flagged by Analyzer 0 % (0-5); Neutrophil # 5.49 X10^3/uL (2.7-7.7); Platelet Count 223 K/mm3 (150-450); RBC Distribution Width CV 13.6 % (11.6-14.6); RBC Distribution Width SD 46.5 fl (35.1-43.9); Red Blood Count 4.91 M/mm3 (4.2-5.4); White Blood Count 8.7 K/mm3 (4.4-11.0)
[2021-01-01 15:49] LABS: AST(SGOT) 19 U/L (15-37); Alanine Aminotransfer ALT/SGPT 27 U/L (13-56); Albumin, Serum 3.5 g/dL (3.2-5.0); Alkaline Phosphatase 55 U/L (45-117); Anion Gap 9 (5-15); BUN 18 mg/dL (7-18); Calcium,Total 9.3 mg/dL (8.5-10.1); Chloride 103 mmol/L (98-107); Cholesterol 129 mg/dL (200); Creatinine, Serum 0.72 mg/dL (0.55-1.02); EST Glomerular Filtration Rate 87 mL/min (>60); Est Glom Filt Rate - Afr Amer 106 mL/min (>60); Ferritin 144 ng/mL (8-252); Globulin 3.5 g/dL (2.2-4.2); Glucose 107 mg/dL (74-106); High Density Lipoprotein 40 mg/dL; Iron 44 ug/dL (50-170); Iron Binding Capacity,Total 358 ug/dL (250-450); Potassium 3.6 mmol/L (3.5-5.1); Sodium Level 138 mmol/L (136-145); Triglycerides 163 mg/dL; Very Low Density Lipoprotein 33 mg/dL (5-40)
[2021-01-01 16:05] LABS: Vitamin D,25 Hydroxy 63.2 ng/mL
== END ==
PROVIDERS: PCP Family Medicine; Referring Provider Family Medicine; Visit Provider Family Medicine
DX: E61.1 Iron deficiency (principal); E78.5 Hyperlipidemia, unspecified; E55.9 Vitamin D deficiency, unspecified; Z72.0 Tobacco use
CPT/HCPCS: 36415; 80053; 80061; 82306; 82728; 83540; 83550; 85025

== ENCOUNTER 2021-05-21 16:19 | Outpatient (CLI) | payer OTHER, SELFPAY ==
--- NOTE | 2021-05-21 16:23 | RAD_ITS ---
STUDY: X-RAY - LEFT SHOULDER REASON FOR EXAM: Female, 60 years old. PAIN TECHNIQUE: 4 view(s) of the shoulder. COMPARISON: None. FINDINGS: Normal glenohumeral articulation. Normal acromioclavicular joint. Normal acromion. Normal humeral head and visualized proximal humerus. The soft tissue structures are unremarkable. There is no demonstrated fracture. Normal visualized pulmonary apex. RAD/Shoulder min 2 Views IMPRESSION: Normal x-ray examination of the shoulder. Electronically Signed: Fabricio Cabello MD at 20:01 EST ,
--- NOTE | 2021-05-21 16:23 | RAD_ITS ---
STUDY: X-RAY - RIGHT SHOULDER REASON FOR EXAM: Female, 60 years old. PAIN TECHNIQUE: 4 view(s) of the shoulder. COMPARISON: Right shoulder x-ray dated January 20, 2014 FINDINGS: There is mild degenerative arthrosis of the glenohumeral articulation. There is mild degenerative arthrosis of the acromioclavicular joint without inferior osseous spur formation. Normal acromion. Normal humeral head and visualized proximal humerus. The soft tissue structures are unremarkable. There is no demonstrated fracture. Normal visualized pulmonary apex. RAD/Shoulder min 2 Views IMPRESSION: Mild DJD Electronically Signed: Fabricio Cabello MD at 20:04 EST ,
== END 2021-05-21 23:59 | disposition home or self-care (01) ==
LOC: MTRAD 16:22
PROVIDERS: PCP Family Medicine; Referring Provider Family Medicine; Visit Provider Family Medicine
DX: M25.511 Pain in right shoulder (principal); M25.512 Pain in left shoulder
CPT/HCPCS: 73030

== ENCOUNTER → 2021-09-17 | Outpatient (CLI) | payer OTHER, SELFPAY ==
[2021-09-17 18:16] LABS: Amphetamine Urine VISTA NEGATIVE (<1000 ng/mL); Barbiturate Urine VISTA NEGATIVE (< 200 ng/mL); Benzodiazepine Urine VISTA NEGATIVE (< 200 ng/mL); Cocaine Urine VISTA NEGATIVE (< 300 ng/mL); Ecstacy Urine VISTA NEGATIVE (< 500 ng/mL); Methadone Urine VISTA NEGATIVE (< 300 ng/mL); PCP Urine VISTA NEGATIVE (< 25 ng/mL); THC Urine VISTA NEGATIVE (< 50 ng/mL); Vista UDS pH Range 4
[2021-09-17 19:31] LABS: BUP Internal Control LINE = VALID (VALID); Buprenorphine Drug Screen Positive (<10 ng/mL)
== END | disposition home or self-care (01) ==
LOC: LAB 15:10
PROVIDERS: PCP Family Medicine; Referring Provider Anesthesiology Pain Medicine; Visit Provider Anesthesiology Pain Medicine
DX: F11.20 Opioid dependence, uncomplicated (principal)
CPT/HCPCS: 80307

== ENCOUNTER → 2021-10-01 | Outpatient (CLI) | payer OTHER, SELFPAY ==
[2021-10-01 16:51] LABS: Mucous, Urine 0 SEEN /hpf (<or=2+); Squamous Epithelial Cells - UA 0 SEEN /hpf (5-10)
[2021-10-01 18:08] LABS: Color, Urine Yellow (Yellow); Glucose, Dipstick Normal (Normal); Ketone-Dipstick Negative (Negative); Leukocyte Esterase-Dipstick 25 /ul (Negative); Nitrite-Dipstick Negative (Negative); Occult Blood-Urine 25 /ul (Negative); Protein-Dipstick Negative (Negative); Urine Bilirubin Dipstick Negative (Negative); Urine Clarity Clear (Clear); Urine Urobilinogen Normal (Normal)
[2021-10-01 18:10] LABS: Absolute Neutrophil Count 5.6 X10^3/uL (2.0-7.7); Basophil# 0.09 X10^3/uL; Eosinophil# 0.44 X10^3/uL; Hematocrit 45.2 % (37-47); Hemoglobin 15.1 g/dL (12.0-15.0); Lymphocyte % 20.5 % (19-41); Mean Corp Hgb Conc 33.4 g/dL (32-36); Mean Corpuscular Hgb 30.8 pg (27.0-32.0); Mean Corpuscular Volume 92.1 fL (81-99); Mean Platelet Vol. 9.1 fl (6.2-12.0); Monocyte% 9.1 % (0-10); NRBC Flagged by Analyzer 0 % (0-5); Neutrophil # 5.59 X10^3/uL (2.7-7.7); Neutrophil % 63.9 % (47-70); Platelet Count 245 K/mm3 (150-450); RBC Distribution Width CV 13.2 % (11.6-14.6); Red Blood Count 4.91 M/mm3 (4.2-5.4); White Blood Count 8.8 K/mm3 (4.4-11.0)
[2021-10-01 18:21] LABS: Bacteria RARE /hpf (None Seen); Red Blood Cells-Urine 0-5 SEEN /hpf (0-5); White Blood Cells 0-5 SEEN /hpf (0-5)
[2021-10-01 18:52] LABS: Vitamin D,25 Hydroxy 63.2 ng/mL
[2021-10-01 18:55] LABS: ALB/GLOB Ratio 1.1 RATIO (0.9-2.4); AST(SGOT) 17 U/L (15-37); Alanine Aminotransfer ALT/SGPT 22 U/L (13-56); Albumin, Serum 3.7 g/dL (3.2-5.0); Alkaline Phosphatase 63 U/L (45-117); Anion Gap 4 (5-15); BUN 21 mg/dL (7-18); BUN/Creat Ratio 24.1 RATIO (10-20); Calcium,Total 9.8 mg/dL (8.5-10.1); Chloride 103 mmol/L (98-107); Cholesterol 150 mg/dL (200); Creatinine, Serum 0.87 mg/dL (0.55-1.02); EST Glomerular Filtration Rate 70 mL/min (>60); Est Glom Filt Rate - Afr Amer 85 mL/min (>60); Ferritin 163 ng/mL (8-252); Globulin 3.4 g/dL (2.2-4.2); Glucose 106 mg/dL (74-106); High Density Lipoprotein 37 mg/dL; Iron 46 ug/dL (50-170); Iron Binding Capacity,Total 355 ug/dL (250-450); Potassium 3.7 mmol/L (3.5-5.1); Protein, Total 7.1 g/dL (6.4-8.2); Sodium Level 138 mmol/L (136-145); Triglycerides 193 mg/dL; Very Low Density Lipoprotein 39 mg/dL (5-40)
== END | disposition home or self-care (01) ==
LOC: MFPLAB 16:48
PROVIDERS: PCP Family Medicine; Visit Provider Family Medicine
DX: E61.1 Iron deficiency (principal); E55.9 Vitamin D deficiency, unspecified; Z72.0 Tobacco use; E78.5 Hyperlipidemia, unspecified
CPT/HCPCS: 36415; 80053; 80061; 81001; 82306; 82728; 83540; 83550; 85025

== ENCOUNTER 2022-02-28 18:52 | Emergency (ER) | payer OTHER, SELFPAY ==
[2022-02-28 18:53] VITALS: BP 158/100; PULSE 75; RESP 16; TEMP 36.1; O2SAT 98; BMI 31.2
--- NOTE | 2022-02-28 19:12 | EX.ED.UPPERE ---
HPI History of Present Illness Chief Complaint: Upper Extremity Injury Detail of Chief Complaint: Laceration dorsal surface left thumb over the proximal phalanx Occured/Mechanism Mechanism/Context: Yes blunt trauma Comment: Patient with a linear laceration 1.5 cm over the dorsal surface of the left thumb. Onset/Context/Timing Context: Sudden Onset Timing: Continuous Quality of Pain: - (Bleeding pain with palpation) Location: Dorsum left thumb Current Severity: Mild Maximum Severity: Moderate Worsened by: Movement Relieved by: Nothing Associated Symptoms Associated Symptoms: Negative for Parasthesia, Weakness or Loss of Funtion Narrative Narrative: Patient is a 59-year-old female presents with laceration to the dorsum of the left thumb. She denies paresthesia, anesthesia risks. Tetanus not up-to-date. She was seen at urgent care and sent to the emergency room because there was concern that she has a laceration of her extensor pollicis longus tendon. Tetanus Immunization: Unknown Prior similar symptoms: No Recent Illness/Hospitalization: No PFSH PFS Medical History (Updated 02/28/22 @ 19:[address] Taiwo Olivera MD) Hypertension Medical History no medical history no medical history Home Medications atorvastatin 20 mg tablet 20 mg PO QHS 02/07/14 [History Last Taken Unknown] cholecalciferol (vitamin D3) 50 mcg (2,000 unit) tablet 2,000 unit PO DAILY 02/07/14 [History Last Taken Unknown] cyclobenzaprine 10 mg tablet 10 mg PO TID PRN PRN Pain 02/07/14 [History Last Taken Unknown] buprenorphine 10 mcg/hour weekly transdermal patch 1 patch transdermal Q7D 03/19/20 [History Last Taken Unknown] losartan 50 mg-hydrochlorothiazide 12.5 mg tablet 1 tab PO DAILY 03/19/20 [History Last Taken Unknown] meloxicam 15 mg tablet 15 mg PO DAILY #30 tabs 03/19/20 [Rx Last Taken Unknown] Allergy/AdvReac Type Severity Reaction Status Date / Time amoxicillin [Amoxicillin] Allergy Shortness Verified 02/28/22 18:56 of breath Family History no significant family his no significant family history Surgical History (Updated 02/28/22 @ 19:07 by Ayla Huang) History of hysterectomy History of tonsillectomy Surgical History no surgical history no surgical history Social History (Updated 02/28/22 @ 19:[address] Taiwo Olivera MD) household members: none Smoking Status: Current every day smoker tobacco type: cigarettes substance use type: does not use ROS ROS ED Constitutional Constitutional ED: Denies chills or fever(s) Eyes Eyes: Denies blurry vision or change in vision Integumentary Reports other Details: Laceration per HPI ; Denies Abrasions or rash Neurologic Neurologic: Denies paresthesias or weakness Hematologic/Lymphatic Hematologic/Lymphatic: Denies easy bleeding or easy bruising EXAM Physical Exam Const Vital Signs: 02/28/22 18:53 Temperature 97.0 F L Temperature Source Temporal Pulse Rate 75 Respiratory Rate 16 Blood Pressure 158/100 H Blood Pressure Mean 119 Pulse Ox 98 Oxygen Delivery Method Room Air Positive well nourished, well developed and obese General Appearance ED: well developed and NAD Nutritional Appearance: obese HEENT Reports moist mucous membranes normocephalic and atraumatic Eyes PERRL and EOMs intact bilaterally Neck full ROM and supple Resp normal respiratory effort Cardio regular rate and regular rhythm Extremity Negative for normal to inspection Extremity Narrative: Linear laceration over the proximal phalanx dorsal side left thumb. The extensor pollicis longus tendon is functionally intact. Median, radial and ulnar function intact. Cap refill is normal. Two-point discrimination is normal. Neuro oriented x3, CN's II-XII intact bilaterally, moves all extremities, no focal motor deficits and no sensory deficits noted Psych mental status grossly normal Skin Lesions: no lesions Rashes: no rashes Trauma: laceration MDM MDM MDM Narrative Medical decision making narrative: Was updated. Will anesthetize wound and suture. Length is 1.5 cm. Procedures Other Procedures Procedure(s): Laceration repair: Patient was anesthetized by local infiltration. Wound was irrigated with 125 cc of normal saline. Using 5-0 Ethilon 4 simple sutures were placed with good cosmesis hemostasis. Patient tolerated procedure well. Total length laceration 1.5 cm Discharge Plan Triage Chief Complaint: Upper Extremity Injury ED Provider: Taiwo Olivera Dx/Rx/DC Orders Clinical Impression: Laceration of left thumb Instructions: ED Laceration, Hand: All Closures Prescriptions: No Action losartan-hydrochlorothiazide 50-12.5 mg tablet 1 tab PO DAILY Label Comments: TAKE 1 TABLET BY MOUTH ONCE DAILY buprenorphine 10 mcg/hour patch weekly 1 patch TD Q7D meloxicam 15 mg tablet 15 mg PO DAILY Qty: 30 0RF cyclobenzaprine 10 MG tablet 10 mg PO TID PRN PRN (Reason: Pain) atorvastatin 20 MG tablet 20 mg PO QHS cholecalciferol (vitamin D3) 2,000 UNIT tablet 2,000 unit PO DAILY Primary Care Provider: David Ferreira Referrals: [facility] [Group of Physicians] - 10 Day for suture removal David Ferreira MD [Primary Care Provider] - Activity Restrictions/Additional Instructions: 1. Keep wound clean and dry for the next 72 hours. 2. Apply bacitracin ointment 3 times a day Disposition Disposition: Home, Self Care
[2022-02-28] MEDS: Diphth,Pertuss(Acell),Tet Vac 0.5 ML Vial IM (19:18)
[2022-02-28] MEDS: Lidocaine 1% (20 ml mdv) 20 ML Vial INFILT (19:20)
== END 2022-02-28 19:41 | disposition home or self-care (01) ==
LOC: ED 19:39
PROVIDERS: Emergency Provider Emergency Medicine; PCP Family Medicine; Visit Provider Emergency Medicine
DX: S61.012A Laceration without foreign body of left thumb without damage to nail, initial encounter (principal); I10 Essential (primary) hypertension; E66.9 Obesity, unspecified; F17.210 Nicotine dependence, cigarettes, uncomplicated; Z23 Encounter for immunization; X58.XXXA Exposure to other specified factors, initial encounter
CPT/HCPCS: 12001; 90471; 90715; 99284

== ENCOUNTER → 2022-05-13 | Outpatient (CLI) | payer OTHER, SELFPAY ==
[2022-05-13 15:17] LABS: Mucous, Urine 0 SEEN /hpf (<or=2+)
[2022-05-13 18:03] LABS: Absolute Lymphocyte Count 1.36 X10^3/uL (0.83-4.51); Absolute Neutrophil Count 6.3 X10^3/uL (2.0-7.7); Basophil# 0.05 X10^3/uL; Basophil% 0.6 % (0-1); Eosinophil# 0.26 X10^3/uL; Hematocrit 50.3 % (37-47); Hemoglobin 16.1 g/dL (12.0-15.0); Lymphocyte # 1.36 X10^3/ul (0.83-4.51); Lymphocyte % 15.7 % (19-41); Mean Corpuscular Hgb 30.4 pg (27.0-32.0); Mean Corpuscular Volume 95.1 fL (81-99); Mean Platelet Vol. 9.8 fl (6.2-12.0); Monocyte# 0.62 X10^3/uL; Monocyte% 7.2 % (0-10); NRBC Flagged by Analyzer 0 % (0-5); Neutrophil # 6.32 X10^3/uL (2.7-7.7); Platelet Count 238 K/mm3 (150-450); RBC Distribution Width CV 13.5 % (11.6-14.6); RBC Distribution Width SD 47.6 fl (35.1-43.9); Red Blood Count 5.29 M/mm3 (4.2-5.4); White Blood Count 8.7 K/mm3 (4.4-11.0)
[2022-05-13 18:08] LABS: Color, Urine Yellow (Yellow); Glucose, Dipstick Normal (Normal); Ketone-Dipstick Negative (Negative); Leukocyte Esterase-Dipstick 25 /ul (Negative); Nitrite-Dipstick Negative (Negative); Occult Blood-Urine 25 /ul (Negative); Protein-Dipstick Negative (Negative); Specific Gravity, Urine 1.015 (1.002-1.030); Urine Bilirubin Dipstick Negative (Negative); Urine Clarity Sl. Cloudy (Clear); Urine Urobilinogen Normal (Normal)
[2022-05-13 18:29] LABS: Bacteria 1+ /hpf (None Seen); Red Blood Cells-Urine 0-5 SEEN /hpf (0-5); Squamous Epithelial Cells - UA 5-10 SEEN /hpf (5-10); White Blood Cells 0-5 SEEN /hpf (0-5)
[2022-05-13 18:44] LABS: ALB/GLOB Ratio 1.1 RATIO (0.9-2.4); AST(SGOT) 17 U/L (15-37); Alanine Aminotransfer ALT/SGPT 24 U/L (13-56); Alkaline Phosphatase 63 U/L (45-117); Anion Gap 5 (5-15); BUN 15 mg/dL (7-18); BUN/Creat Ratio 19.5 RATIO (10-20); Calcium,Total 9.3 mg/dL (8.5-10.1); Chloride 104 mmol/L (98-107); Cholesterol 135 mg/dL (200); Creatinine, Serum 0.77 mg/dL (0.55-1.02); EST Glomerular Filtration Rate 81 mL/min (>60); Est Glom Filt Rate - Afr Amer 98 mL/min (>60); Ferritin 216 ng/mL (8-252); Globulin 3.6 g/dL (2.2-4.2); Glucose 94 mg/dL (74-106); High Density Lipoprotein 42 mg/dL; Iron 62 ug/dL (50-170); Iron Binding Capacity,Total 390 ug/dL (250-450); Potassium 3.6 mmol/L (3.5-5.1); Protein, Total 7.6 g/dL (6.4-8.2); Sodium Level 138 mmol/L (136-145); Triglycerides 145 mg/dL; Very Low Density Lipoprotein 29 mg/dL (5-40)
== END | disposition home or self-care (01) ==
LOC: MFPLAB 15:13
PROVIDERS: PCP Family Medicine; Referring Provider Family Medicine; Visit Provider Family Medicine
DX: I10 Essential (primary) hypertension (principal); D75.1 Secondary polycythemia; E55.9 Vitamin D deficiency, unspecified; Z72.0 Tobacco use
CPT/HCPCS: 36415; 80053; 80061; 81001; 82306; 82728; 83540; 83550; 85025

== ENCOUNTER → 2022-07-15 | Outpatient (CLI) | payer OTHER, SELFPAY ==
[2022-07-15 18:19] LABS: Amphetamine Urine VISTA NEGATIVE (<1000 ng/mL); Barbiturate Urine VISTA NEGATIVE (< 200 ng/mL); Benzodiazepine Urine VISTA NEGATIVE (< 200 ng/mL); Cocaine Urine VISTA NEGATIVE (< 300 ng/mL); Ecstacy Urine VISTA NEGATIVE (< 500 ng/mL); Methadone Urine VISTA NEGATIVE (< 300 ng/mL); PCP Urine VISTA NEGATIVE (< 25 ng/mL); THC Urine VISTA NEGATIVE (< 50 ng/mL); Vista UDS pH Range 6
[2022-07-15 18:52] LABS: BUP Internal Control LINE = VALID (VALID); Buprenorphine Drug Screen Positive (<10 ng/mL)
== END | disposition home or self-care (01) ==
LOC: LAB 17:26
PROVIDERS: PCP Family Medicine; Referring Provider Anesthesiology Pain Medicine; Visit Provider Anesthesiology Pain Medicine
DX: F11.20 Opioid dependence, uncomplicated (principal)
CPT/HCPCS: 80307

== ENCOUNTER 2022-11-15 15:24 | Emergency (ER) | payer OTHER, SELFPAY ==
[2022-11-15 15:25] VITALS: BP 146/80; PULSE 78; RESP 16; TEMP 36.3; O2SAT 97; BMI 29.4
--- NOTE | 2022-11-15 15:42 | CT_ITS ---
STUDY: CT ABDOMEN AND PELVIS WITHOUT CONTRAST REASON FOR EXAM: Female, 62 years old. Left flank pain RADIATION DOSAGE (If Supplied By Facility): CTDIvol = ( 12.82 ) mGy, DLP = ( 589.21 ) mGycm TECHNIQUE: Transaxial images were obtained from the dome of the diaphragm to the symphysis pubis without oral contrast, and without intravenous contrast. Sagittal and coronal images were reconstructed. Individualized dose optimization techniques were used for this CT. COMPARISON: 11/22/2018. FINDINGS: The visualized lung bases are unremarkable. The visualized portions of the heart are within normal limits. Normal liver. The gallbladder is contracted. Normal spleen. Normal pancreas. Normal bilateral adrenal glands. Right kidney has numerous stable nonobstructing renal stones. Largest is in the lower pole and measures approximately 8 mm greatest dimension. Left kidney shows mild to moderate hydronephrosis related to 2 separate proximal ureteral stones with the largest measuring 6 mm, and is seen on coronal image 60. Numerous additional nonobstructing stones are seen of the left kidney in all segments. Evaluation of the GI tract is limited by absence of oral contrast. Cannot exclude stomach wall thickening. No dilated loops of bowel or evidence for obstruction. Cannot exclude segmental thickening of the romero of the small or large bowel. Cannot exclude enteritis or colitis. Moderate diffuse fecal retention. Appendix within normal limits. There is diffuse atherosclerotic calcification of the abdominal aorta, without a demonstrated aneurysm. Normal inferior vena cava. Normal retroperitoneum. Normal urinary bladder. There is absence of the uterus consistent with a prior hysterectomy. Thickening of the skin of the mid right abdominal wall seen, with induration extending directly into the subcutaneous tissues for length of approximately 2.4 cm. Findings are most likely inflammatory but no definite abscess is seen. There are diffuse degenerative changes of the visualized lumbar spine. CT/Abdomen/Pelvis without Cont IMPRESSION: Obstruction of the left kidney collecting system and proximal ureter from 2 separate proximal ureteral stones measuring as much as 6 mm. Numerous additional bilateral currently nonobstructing stones. Probable focal skin and subcutaneous inflammatory process of the right abdominal wall without definite abscess formation. Electronically Signed: Saul Wallace MD at 16:51 EDT ,
--- NOTE | 2022-11-15 15:47 | EX.ED.DYSGE1 ---
HPI History of Present Illness Chief Complaint: Wound Informant: patient Onset/Context/Timing Onset: Days (6) Context: Gradual Onset Timing: Continuous Quality: Redness Location: Right lower abdomen Worsened by: Palpation Relieved by: Nothing Narrative Narrative: Patient presents with redness and swelling to her right lower abdominal wall that has been getting worse over the last 6 days. Patient states it is worse with palpation. Patient denies any discharge or drainage. Patient also admits to some pain in her left flank. Patient admits to some hematuria. Patient also admits to some nausea. Patient denies any fevers or chills. Patient denies any dysuria. Patient states she was told that she had 2 kidney stones and passed 1. Patient is unsure if she is passing the other 1. [facility] Medical History (Updated 11/15/22 @ 16:[address] Abdoulaye Parsons DO) Degenerative disc disease, cervical Hypertension Home Medications atorvastatin 20 mg tablet 20 mg PO QHS 02/07/14 [History Last Taken Unknown] cholecalciferol (vitamin D3) 50 mcg (2,000 unit) tablet 2,000 unit PO DAILY 02/07/14 [History Last Taken Unknown] cyclobenzaprine 10 mg tablet 10 mg PO TID PRN PRN Pain 02/07/14 [History Last Taken Unknown] buprenorphine 10 mcg/hour weekly transdermal patch 1 patch transdermal Q7D 03/19/20 [History Last Taken Unknown] losartan 50 mg-hydrochlorothiazide 12.5 mg tablet 1 tab PO DAILY 03/19/20 [History Last Taken Unknown] meloxicam 15 mg tablet 15 mg PO DAILY #30 tabs 03/19/20 [Rx Last Taken Unknown] cephalexin 500 mg capsule 500 mg PO Q6 #40 CAPSULES 11/15/22 [Rx Last Taken Unknown] Allergy/AdvReac Type Severity Reaction Status Date / Time amoxicillin [Amoxicillin] Allergy Shortness Verified 11/15/22 15:25 of breath Surgical History History of hysterectomy History of tonsillectomy Social History household members: none Smoking Status: Current every day smoker tobacco type: cigarettes substance use type: does not use ROS ROS ED Constitutional Constitutional ED: Denies chills or fever(s) Eyes Eyes: Denies blurry vision or change in vision ENT ENT ED: Denies rhinorrhea or sore throat Cardiovascular Cardiovascular: Denies chest pain or palpitations Respiratory/Chest Respiratory/Chest: Denies cough or dyspnea Gastrointestinal Gastrointestinal: Reports nausea; Denies vomiting Genitourinary Genitourinary ED: Reports hematuria; Denies dysuria Musculoskeletal Musculoskeletal: Reports back pain and neck pain Integumentary Reports abscess and rash Neurologic Neurologic: Denies headache(s) or weakness Allergic/Immunologic Allergic/Immunologic ED: Denies mouth swelling or urticaria EXAM Physical Exam Const Vital Signs: 11/15/22 15:25 Temperature 97.3 F L Temperature Source Temporal Pulse Rate 78 Respiratory Rate 16 Blood Pressure 146/80 H Blood Pressure Mean 102 Pulse Ox 97 Oxygen Delivery Method Room Air Positive well nourished and well developed General Appearance ED: well developed and NAD HEENT Reports moist mucous membranes Neck supple and no JVD Resp normal respiratory effort and clear to auscultation bilaterally Cardio regular rate, regular rhythm and no murmurs GI normal to inspection, nondistended, normoactive bowel sounds and non-tender Palpation: soft and tender RLQ; Negative for guarding or rebound tenderness present Back/Spine General Back: CVA tenderness left Extremity normal to inspection General Extremety ED: Negative for edema or tenderness General Extremity: Negative for edema Neuro oriented x3, CN's II-XII intact bilaterally and no sensory deficits noted Sensorium / Orientation: alert Motor Exam: strength 5/5 throughout Psych mental status grossly normal Skin Skin Narrative: There is tenderness, edema, and erythema over the right lower abdomen. There is some induration noted. There is no discharge or drainage. There is questionable fluctuance. There is some mild warmth noted. MDM MDM MDM Narrative Medical decision making narrative: Differential diagnosis includes abdominal wall abscess, cellulitis, left ureteral calculus, urinary tract infection, and pyelonephritis. Patient CT scan of the abdomen pelvis will be obtained to assess for ureteral calculus. Urinalysis will be obtained to assess for urinary tract infection and hematuria. Radiography Diagnostic Testing: CT scan of the abdomen pelvis was obtained. There are left proximal ureteral calculi noted with hydronephrosis and hydroureter. The largest 1 measures up to 6 mm. There are other nonobstructing renal calculi noted. This was interpreted by the radiologist and was also independently reviewed by myself. Treatment and Re-Evaluation :: I discussed opening the abdominal wall abscess under local anesthesia. I discussed the risks and benefits of incision and drainage. Patient is agreeable to have this done. The area was cleaned with chlorhexidine prep. The area was anesthetized with 1% plain lidocaine locally. A small cruciate incision was made using an 11 blade scalpel. A moderate amount of purulent drainage was expressed. The wound was left open. Bacitracin dressing was applied. Patient tolerated the procedure well. Patient was instructed to use warm compresses. Patient was given a prescription for Keflex. Patient was given her first dose here. Patient was advised of her findings of the kidney stone and ureteral calculi. Patient is comfortable on reevaluation. Patient declines opiate analgesics at this time. Patient states she has pain medication at home. Patient was given a referral for urology. Patient was instructed to follow-up with with urology in 5 to 7 days. Patient was also instructed to follow-up with her primary care physician in 5 to 7 days. Patient understood and was agreeable with the plan. All questions were answered. Discharge Plan Triage Chief Complaint: Wound ED Provider: Abdoulaye Parsons Dx/Rx/DC Orders Clinical Impression: Abdominal wall abscess, Calculus of proximal left ureter Instructions: ED Abscess Incision And Drainage, ED Kidney Stone w/ Colic Prescriptions: New cephalexin [cephalexin] 500 mg capsule 500 mg PO Q6 Qty: 40 0RF No Action losartan-hydrochlorothiazide 50-12.5 mg tablet 1 tab PO DAILY Patient Comments: TAKE 1 TABLET BY MOUTH ONCE DAILY buprenorphine 10 mcg/hour patch weekly 1 patch TD Q7D meloxicam 15 mg tablet 15 mg PO DAILY Qty: 30 0RF cyclobenzaprine 10 MG tablet 10 mg PO TID PRN PRN (Reason: Pain) atorvastatin 20 MG tablet 20 mg PO QHS cholecalciferol (vitamin D3) 2,000 UNIT tablet 2,000 unit PO DAILY Primary Care Provider: David Ferreira Referrals: Kerline Covarrubias MD [Med Staff - Active Staff] - 5-7 Days David Ferreira MD [Primary Care Provider] - 5-7 Days Disposition Disposition: Home, Self Care
[2022-11-15] MEDS: Lidocaine 1% (20 ml mdv) 20 ML Vial INFILT (16:25)
[2022-11-15] MEDS: Cephalexin 500 MG Capsule PO (16:25)
[2022-11-15 16:40] LABS: Mucous, Urine 0 SEEN /hpf (<or=2+)
[2022-11-15 16:42] LABS: Color, Urine Yellow (Yellow); Glucose, Dipstick Normal (Normal); Ketone-Dipstick Negative (Negative); Leukocyte Esterase-Dipstick 100 /ul (Negative); Nitrite-Dipstick Negative (Negative); Occult Blood-Urine 250 /ul (Negative); Protein-Dipstick 30 mg/dl (Negative); Specific Gravity, Urine 1.025 (1.002-1.030); Urine Bilirubin Dipstick Negative (Negative); Urine Clarity Sl. Cloudy (Clear); Urine Urobilinogen 1 mg/dl (Normal)
[2022-11-15 17:39] LABS: Red Blood Cells-Urine 5-10 SEEN /hpf (0-5); White Blood Cells 5-10 SEEN /hpf (0-5)
[2022-11-15 17:40] LABS: Bacteria RARE /hpf (None Seen); Squamous Epithelial Cells - UA 0-5 SEEN /hpf (5-10)
== END 2022-11-15 17:59 | disposition home or self-care (01) ==
PROVIDERS: Emergency Provider Emergency Medicine; PCP Family Medicine; Visit Provider Emergency Medicine
DX: L02.211 Cutaneous abscess of abdominal wall (principal); F17.210 Nicotine dependence, cigarettes, uncomplicated; I10 Essential (primary) hypertension; Z87.442 Personal history of urinary calculi; N13.2 Hydronephrosis with renal and ureteral calculous obstruction
CPT/HCPCS: 10060; 74176; 81001; 99283

== ENCOUNTER 2023-01-16 18:24 | Emergency (ER) | payer OTHER, SELFPAY ==
[2023-01-16 18:25] VITALS: BP 151/95; PULSE 71; RESP 16; TEMP 36; BMI 28.8
--- NOTE | 2023-01-16 20:10 | ED.VIS.LOWEX ---
HPI History of Present Illness Chief Complaint: Lower Extremity Injury Detail of Chief Complaint: Pain and swelling right foot Informant: patient Occured/Mechanism Mechanism/Context: Yes injury Comment: States she had a twisting mechanism of injury. She felt a pop. She was unable to bear weight. Onset/Context/Timing Onset: Hours Context: Sudden Onset Timing: Continuous Quality of Pain: Dull, Aching and Throbbing Current Severity: Mild Maximum Severity: Severe Worsened by: Weightbearing Relieved by: Elevation Associated Symptoms Associated Symptoms: Positive for Loss of Funtion Narrative Narrative: Patient is a 62-year-old woman who is in pain management and his history of hypertension who presents with injury to her right foot. She complains of pain on the dorsal lateral surface. She denies paresthesia, anesthesia or motor weakness. Denies prior injury. She states she is unable to ambulate or bear weight. Prior similar symptoms: No Recent Illness/Hospitalization: No [facility] Medical History Degenerative disc disease, cervical Hypertension Home Medications atorvastatin 20 mg tablet 20 mg PO QHS 02/07/14 [History Last Taken Unknown] cholecalciferol (vitamin D3) 50 mcg (2,000 unit) tablet 2,000 unit PO DAILY 02/07/14 [History Last Taken Unknown] cyclobenzaprine 10 mg tablet 10 mg PO TID PRN PRN Pain 02/07/14 [History Last Taken Unknown] buprenorphine 10 mcg/hour weekly transdermal patch 1 patch transdermal Q7D 03/19/20 [History Last Taken Unknown] losartan 50 mg-hydrochlorothiazide 12.5 mg tablet 1 tab PO DAILY 03/19/20 [History Last Taken Unknown] meloxicam 15 mg tablet 15 mg PO DAILY #30 tabs 03/19/20 [Rx Last Taken Unknown] cephalexin 500 mg capsule 500 mg PO Q6 #40 CAPSULES 11/15/22 [Rx Last Taken Unknown] hydrocodone-acetaminophen 5-325mg 5mg-325mg 1 tab PO Q6H PRN PRN Pain 3 days #10 TABLETS 01/16/23 [Rx Last Taken Unknown] Allergy/AdvReac Type Severity Reaction Status Date / Time amoxicillin [Amoxicillin] Allergy Shortness Verified 01/16/23 18:25 of breath Surgical History History of hysterectomy History of tonsillectomy Social History household members: none Smoking Status: Current every day smoker tobacco type: cigarettes substance use type: does not use ROS ROS ED Constitutional Constitutional ED: Denies chills or fever(s) Cardiovascular Cardiovascular: Denies chest pain Respiratory/Chest Respiratory/Chest: Denies dyspnea Musculoskeletal Musculoskeletal: Reports other Details: Right foot pain ; Denies arthralgias, back pain, myalgias or neck pain Integumentary Denies rash Hematologic/Lymphatic Hematologic/Lymphatic: Denies easy bleeding or easy bruising EXAM Physical Exam Const Vital Signs: 01/16/23 18:25 01/16/23 18:25 Temperature 96.8 F L 96.8 F L Temperature Source Temporal Temporal Pulse Rate 71 71 Respiratory Rate 16 16 Blood Pressure 151/95 H 151/95 H Blood Pressure Mean 113 113 Positive well nourished and well developed General Appearance ED: well developed and NAD HEENT Reports moist mucous membranes normocephalic and atraumatic Eyes PERRL Eyes Narrative: Extraocular muscle tach. Resp normal respiratory effort Cardio regular rate and regular rhythm Extremity full ROM; Negative for normal to inspection Extremity Narrative: There is swelling with ecchymosis lateral aspect of the right foot. There is pain to outpatient over the fifth metatarsal. There is no pain ovation of the medial or lateral malleolus. There is no pain ovation over the anterior talofibular ligament. PT and DP pulse are palpable. There is no subungual hematoma of the toes. Neuro oriented x3, CN's II-XII intact bilaterally, moves all extremities and no sensory deficits noted Sensorium / Orientation: alert Psych mental status grossly normal Skin no wounds Skin Narrative: Bruising lateral dorsal surface of the right foot MDM MDM MDM Narrative Medical decision making narrative: Was obtained to assess for soft tissue injury versus fracture. Suspect fracture of the fifth metatarsal. Patient was medicated with Naprosyn and opiate analgesia. Radiography Chest X-Ray - ED: Read by ED Physician (Three-view x-ray of the foot reveals a nondisplaced fracture base of the fifth metatarsal, pseudo Lamb. This is independent reviewed interpreted by me.) Diagnostic Testing: Clinical Impression(s) from Imaging Studies Foot X-Ray 01/16/23 20:25 IMPRESSION: Nondisplaced fracture of the base of the fifth metatarsal. Electronically Signed: Kian Fyr MD at 20:54 EDT , Treatment and Re-Evaluation Narrative: She has a pseudo Lamb fracture.. Treatment is a walking boot. She was referred to Dr. Pepper who is on for orthopedics. Discharge Plan Triage Chief Complaint: Lower Extremity Injury ED Provider: Taiwo Olivera Dx/Rx/DC Orders Clinical Impression: Nondisplaced fracture of fifth metatarsal bone of right foot Prescriptions: New hydrocodone-acetaminophen [hydrocodone-acetaminophen] 5-325 mg tablet 1 tab PO Q6H PRN PRN (Reason: Pain) 3 Days Qty: 10 0RF No Action losartan-hydrochlorothiazide 50-12.5 mg tablet 1 tab PO DAILY Patient Comments: TAKE 1 TABLET BY MOUTH ONCE DAILY buprenorphine 10 mcg/hour patch weekly 1 patch TD Q7D meloxicam 15 mg tablet 15 mg PO DAILY Qty: 30 0RF cyclobenzaprine 10 MG tablet 10 mg PO TID PRN PRN (Reason: Pain) atorvastatin 20 MG tablet 20 mg PO QHS cholecalciferol (vitamin D3) 2,000 UNIT tablet 2,000 unit PO DAILY cephalexin [cephalexin] 500 mg capsule 500 mg PO Q6 Qty: 40 0RF Primary Care Provider: David Ferreira Referrals: David Ferreira MD [Primary Care Provider] - Joe Pepper MD [Med Staff - Active Staff] - 5-7 Days Activity Restrictions/Additional Instructions: Wear the walking boot when you are up and about. Otherwise remove and apply ice to your foot. Recommend applying ice 6-10 times a day. Disposition Disposition: Home, Self Care
--- NOTE | 2023-01-16 20:25 | RAD_ITS ---
EXAM: XR RIGHT FOOT COMPLETE, 3 OR MORE VIEWS CLINICAL INDICATION: Injury/Pain TECHNIQUE: Frontal, lateral and oblique views of the right foot. COMPARISON: No relevant prior studies available. FINDINGS: BONES/JOINTS: There is a nondisplaced fracture of the base of the fifth metatarsal. There are degenerative changes of the first metatarsophalangeal joint. No sclerotic or destructive changes observed. SOFT TISSUES: Unremarkable. No soft tissue swelling or gas. No radiopaque foreign body. RAD/Foot min 3 Views IMPRESSION: Nondisplaced fracture of the base of the fifth metatarsal. Electronically Signed: Kian Fry MD at 20:54 EDT ,
[2023-01-16] MEDS: Naproxen 500 MG Tablet PO (20:30)
[2023-01-16] MEDS: HYDROcodone Bitartrate/Apap 5/325 Tablet PO (20:30)
== END 2023-01-16 21:25 | disposition home or self-care (01) ==
PROVIDERS: Emergency Provider Emergency Medicine; PCP Family Medicine; Visit Provider Emergency Medicine
DX: S92.354A Nondisplaced fracture of fifth metatarsal bone, right foot, initial encounter for closed fracture (principal); F17.210 Nicotine dependence, cigarettes, uncomplicated; I10 Essential (primary) hypertension; X58.XXXA Exposure to other specified factors, initial encounter
CPT/HCPCS: 73630; 99284

== ENCOUNTER → 2023-05-05 | Outpatient (CLI) | payer OTHER, SELFPAY ==
[2023-05-05 15:06] LABS: Bacteria 0 SEEN /hpf (None Seen); Mucous, Urine 0 SEEN /hpf (<or=2+); White Blood Cells 0 SEEN /hpf (0-5)
--- OUTSIDE RECORDS SUMMARY | 2023-05-05 15:22 | XMS RPT_ITS | CCD ---
Author Name Unknown Address [address] [place] [address] Organization [facility] Care Team Providers Care Machine Shop Supervisor Name Role Phone Miles Faustin MD Primary Care Provider Allergies Allergy Classification Reported Allergen(s) Allergy Type Date of Onset Reaction(s) Facility (3 sources) Amoxicillin; Translations: [AMOXICILLIN] Drug Allergy 06-20-2013 Shortness of Breath [facility] Medications Completed/Discontinued Medications Medication Drug Class(es) Dates Sig (Normalized) Sig (Original) atorvastatin 20 mg oral tablet (2 sources) HMG-CoA Reductase Inhibitor Start: 01-23-2022 take 1 tablet by mouth once daily atorvastatin (LIPITOR) 20 mg tablet take 1 tablet by mouth nightly 0 01/23/2022 Active Problems Problem Classification Problem Date Documented Da te Episodic/Chronic Other injuries and conditions due to external causes (1 source) Injury of left hand; Translations: [Unspecified injury of left wrist, hand and finger(s), initial encounter] Episodic Results Test Name Value Interpretation Reference Range Facil ity Vital Signs Date Time Vital Sign Value Performing Clinician Cas floyd 02-28-2022 18:11-0500 Body temperature 97.9 [degF] Dread Shin APRN.FARMWORKER [employer]ICE Work Phone: [facility] 02-28-2022 18:11-0500 Body weight 82.64 kg Dread Shin APRN.FARMWORKER [employer]ICE Work Phone: [facility] 02-28-2022 18:11-0500 Diastolic blood pressure 100 mm[Hg] Dread Shin APRN.[employer]ARMWORK[employer]ICE Work Phone: [facility] 02-28-2022 18:11-0500 Heart rate 74 /min Dread Shin APRN.FARMWORK[employer]ICE Work Phone: [facility] 02-28-2022 18:11-0500 Respiratory rate 18 /min Dread Shin OSVALDO.FARMWORKER RICE Work Phone: [facility] 02-28-2022 18:11-0500 SaO2% (BldA) [Mass fraction] 98 % Dread Shin DUMP ATTENDANT.FARMWORK[employer] RICE Work Phone: [facility] 02-28-2022 18:11-0500 Systolic blood pressure 162 mm[Hg] Dread Shin DUMP ATTENDANT.FARMWORKER [employer]ICE Work Phone: [facility] Encounters Encounter Date Encounter Type Care Provider Facility Start: 04-15-2022 Telephone encounter Zach patel MD Work Phone: Orthopaedics Plan of Treatment Date Care Activity Detail Author Start: 04-06-2022 DEPRESSION ASSESSMENT DEPRESSION ASS ESSMENT [facility] Start: 12-05-2021 Influenza vaccination INFLUENZA (#1) [facility] Start: 07-16-2021 SHINGRIX VACCINE (2 of 2) SHINGRIX V ACCINE (2 of 2) [facility] Start: 04-06-2021 DEPRESSION ASSESSMENT DEPRESSION ASS ESSMENT [facility] Start: 09-21-2020 COVID-19 VACCINE (3 - Booster for Moderna series) COVID-19 VACCINE (3 - Booster for Moderna series) [facility] Start: 04-06-2012 Urine microalbumin profile DTAP,TDAP ,TD (1 - Tdap) [facility] Start: 04-18-2008 PAP TESTING PAP TESTING [facility] Start: 10-01-2004 COLOGUARD (FIT-DNA) COLOGUARD (FIT-D NA) [facility] Start: 10-01-2004 Colonoscopy COLONOSCOPY [facility] Start: 10-01-2004 COLORECTAL CANCER SCREENING COLORECTAL CANCER SCREENING [facility] Start: 10-01-[address] COLONOGRAPHY [facility] Start: 10-01-2004 DIABETES SCREEN DIABETES SCREEN [facility] Start: 10-01-2004 FECAL OCCULT BLOOD FECAL OCCULT BLOO D [facility] Start: 10-01-2004 LIPID SCREEN LIPID SCREEN [facility] Start: 10-01-2004 SIGMOIDOSCOPY SIGMOIDOSCOPY [facility] Start: 1999 Mammography MAMMOGRAM [facility] Start: 10-01-1989 HPV TESTING HPV TESTING [facility] Start: 10-01-1977 HEPATITIS C SCREENING HEPATITIS C SC NAMAN [facility] Start: 10-01-1977 HIV SCREENING HIV SCREENING [facility] Immunizations Immunization Date Immunization Notes Care Provider Erasmo cobb 05-21-2021 zoster vaccine recombinant Dread Kip DUMP ATTENDANT.[employer]ARMWORK[employer]ICE Work Phone: [facility] 04-24-2020 pneumococcal polysaccharide vaccine, 23 valent Dread Kip DUMP ATTENDANT.FARMWORKER [employer]ICE Work Phone: [facility] 01-11-2019 influenza, injectabl e, quadrivalent, contains preservative Dread Kip DUMP ATTENDANT.FARMWORK[employer]ICE Work Phone: [facility] 01-07-2018 influenza, seasonal, injectable Dread Kip DUMP ATTENDANT.FARMWORK[employer]ICE Work Phone: [facility] 02-09-2017 influenza, injectabl e, quadrivalent, contains preservative Dread Kip DUMP ATTENDANT.FARMWORK[employer]ICE Work Phone: [facility] 12-06-2015 influenza, seasonal, injectable Dread Kip DUMP ATTENDANT.FARMWORKER RICE Work Phone: [facility] 02-04-2015 influenza, seasonal, injectable Dread Kip DUMP ATTENDANT.FARMWORKER RICE Work Phone: [facility] 12-20-2013 influenza, seasonal, injectable Dread Kip DUMP ATTENDANT.FARMWORKER RICE Work Phone: [facility] 04-05-2012 TD(adult) unspecifie d formulation Dread Kip DUMP ATTENDANT.FARMWORKER RICE Work Phone: [facility] Payers Date Payer Category Payer Unknown PENDING 2021 Unknown [id number] Social History Date Type Detail Facility Start: 06-20-2013 Tobacco smoking stat us NHIS Ex-smoker [facility] History of tobacco use Current smoker 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 Spoke with patient. She is aware of provider change and x-ray is needed prior to her appointment. Patient is scheduled with Dr. Fraire on 04/17/21 for a thumb laceration. Per Dr. Fraire patient needs to see Dr. Givens. Patient booked with Dr. Givens on 04/17 @ 1:30. Attempted to contact patient of appointment change. No answer on patient's phone and unable to leave a message her voicemail is full. documented in this encounter [facility] Progress note 02-28-2022 Note Date & Type Note Facility 02-28-2022 Note HNO ID: [id number] Author: Dread Shin APRN.GRANT Service: ? Author Type: Nurse Practitioner Type: Progress Notes Filed: 02/28/2022 6:33 PM Note Text: Patient triaged at [facility]. Here today with left hand thumb laceration. On triage exam extension of injured thumb is weak and very painful. I will refer to ER for possible tendon involvement. [facility] visit. [facility] History of Present illness Narrative 02-28-2022 Dread Shin APRN.FARMWORKER RICE - 02/28/2022 6:31 PM EST Note Date & Type Note Facility 02-28-2022 History of Presen t illness Narrative Patient triaged at [facility]. Here today with left hand thumb laceration. On triage exam extension of injured thumb is weak and very painful. I will refer to ER for possible tendon involvement. [facility] visit. documented in this encounter [facility] Evaluation note Note Date & Type Note Facility documented in this encounter [facility] Summary Purpose Family History No Family History Records Found Advance Directives No Advanced Directives Records Found Additional Source Comments Source Comments (unrecognize d section and content) In the event this informatio n is protected by the Federal Confidentiality of Alcohol and Drug Abuse Patient Records regulations: The Federal rules restrict any use of the information to criminally investigate or prosecute any alcohol or drug abuse [facility] the event this information is protected by the Federal Confidentiality of Alcohol and Drug Abuse Patient Records regulations: The Federal rules restrict any use of the information to criminally investigate or prosecute any alcohol or drug abuse patient.[facility] Reason for Visit (unrecogniz ed section and content) Specialty Diagnoses / Procedures Referred By Contac t Referred To Contact [facility] Diagnoses Cut of finger Procedures REFERRAL TO [facility] [employer] [facility] [address] [place] [address] Referral ID Status Reason Start Date Expiration Date V isits Requested Visits Authorized [id number] Outside PCP 02/28/2022 04/29/2022 1 1 Reason Comments Upcomining appointment Care Teams (unrecognized sec tion and content) Machine Shop Supervisor Relationship Specialty Start Date End Date Miles Faustin MD [address] [place] [address] PCP - General Family Medicine 06/20/13 INFORMATION SOURCE (unrecogn ized section and content) FOR RECORDS PERTAINING TO PATIENTS WHO ARE OR HAVE BEEN ENROLLED IN A CHEMICAL DEPENDENCY/SUBSTANCEABUSE PROGRAM, SOME INFORMATION MAY BE OMITTED. This clinical summary was aggregated from multiple sources. Caution should be exercised in using it in the provision of clinical care. This summary normalizes information from multiple sources, and as a consequence, information in this document may materially change the coding, format and clinical context of patient data. In addition, data may be omitted in some cases. CLINICAL DECISIONS SHOULD BE BASED ON THE PRIMARY CLINICAL RECORDS. [facility] [employer] [facility]. provides no warranty or guarantee of the accuracy or completeness of information in this document.
[2023-05-05 18:06] LABS: Absolute Lymphocyte Count 1.65 X10^3/uL (0.83-4.51); Basophil# 0.09 X10^3/uL; Basophil% 0.9 % (0-1); Eosinophil# 0.41 X10^3/uL; Hematocrit 46.8 % (37-47); Hemoglobin 15.6 g/dL (12.0-15.0); Lymphocyte # 1.65 X10^3/ul (0.83-4.51); Mean Corp Hgb Conc 33.3 g/dL (32-36); Mean Corpuscular Hgb 30.9 pg (27.0-32.0); Mean Corpuscular Volume 92.7 fL (81-99); Mean Platelet Vol. 8.9 fl (6.2-12.0); Monocyte# 1.07 X10^3/uL; Monocyte% 10.4 % (0-10); NRBC Flagged by Analyzer 0 % (0-5); Neutrophil # 7.03 X10^3/uL (2.7-7.7); Neutrophil % 68.2 % (47-70); Platelet Count 264 K/mm3 (150-450); RBC Distribution Width CV 13.5 % (11.6-14.6); RBC Distribution Width SD 46.2 fl (35.1-43.9); Red Blood Count 5.05 M/mm3 (4.2-5.4); White Blood Count 10.3 K/mm3 (4.4-11.0)
[2023-05-05 18:09] LABS: Color, Urine Yellow (Yellow); Glucose, Dipstick Normal (Normal); Ketone-Dipstick 5 mg/dl (Negative); Leukocyte Esterase-Dipstick 25 /ul (Negative); Nitrite-Dipstick Negative (Negative); Occult Blood-Urine 250 /ul (Negative); Protein-Dipstick 30 mg/dl (Negative); Urine Bilirubin Dipstick Negative (Negative); Urine Clarity Cloudy (Clear); Urine Urobilinogen 1 mg/dl (Normal)
[2023-05-05 18:17] LABS: Vitamin D,25 Hydroxy 68.1 ng/mL
[2023-05-05 18:28] LABS: ALB/GLOB Ratio 1.1 RATIO (0.9-2.4); AST(SGOT) 19 U/L (15-37); Alanine Aminotransfer ALT/SGPT 30 U/L (13-56); Albumin, Serum 3.9 g/dL (3.2-5.0); Alkaline Phosphatase 64 U/L (45-117); Anion Gap 5 (5-15); BUN 19 mg/dL (7-18); BUN/Creat Ratio 21.4 RATIO (10-20); Calcium,Total 9.2 mg/dL (8.5-10.1); Chloride 108 mmol/L (98-107); Cholesterol 155 mg/dL (200); Creatinine, Serum 0.89 mg/dL (0.55-1.02); EST Glomerular Filtration Rate 68 mL/min (>60); Est Glom Filt Rate - Afr Amer 83 mL/min (>60); Ferritin 297 ng/mL (8-252); Globulin 3.6 g/dL (2.2-4.2); Glucose 87 mg/dL (74-106); High Density Lipoprotein 43 mg/dL; Iron 81 ug/dL (50-170); Iron Binding Capacity,Total 315 ug/dL (250-450); Potassium 3.6 mmol/L (3.5-5.1); Protein, Total 7.5 g/dL (6.4-8.2); Sodium Level 137 mmol/L (136-145); Triglycerides 136 mg/dL; Very Low Density Lipoprotein 27 mg/dL (5-40)
[2023-05-05 18:35] LABS: Red Blood Cells-Urine > 100 SEEN /hpf (0-5); Squamous Epithelial Cells - UA 0-5 SEEN /hpf (5-10)
== END | disposition home or self-care (01) ==
LOC: MTLAB 15:00
PROVIDERS: PCP Family Medicine; Referring Provider Family Medicine; Visit Provider Family Medicine
DX: I10 Essential (primary) hypertension (principal); E61.1 Iron deficiency; E55.9 Vitamin D deficiency, unspecified; E78.5 Hyperlipidemia, unspecified
CPT/HCPCS: 36415; 80053; 80061; 81001; 82306; 82728; 83540; 83550; 85025

== ENCOUNTER → 2023-07-20 | Outpatient (CLI) | payer OTHER, SELFPAY ==
[2023-07-20 20:01] LABS: Amphetamine Urine VISTA NEGATIVE (<1000 ng/mL); Barbiturate Urine VISTA NEGATIVE (< 200 ng/mL); Benzodiazepine Urine VISTA NEGATIVE (< 200 ng/mL); Cocaine Urine VISTA NEGATIVE (< 300 ng/mL); Ecstacy Urine VISTA NEGATIVE (< 500 ng/mL); Methadone Urine VISTA NEGATIVE (< 300 ng/mL); PCP Urine VISTA NEGATIVE (< 25 ng/mL); THC Urine VISTA NEGATIVE (< 50 ng/mL); Vista UDS pH Range 7
[2023-07-21 07:42] LABS: BUP Internal Control LINE = VALID (VALID); Buprenorphine Drug Screen Negative (<10 ng/mL)
== END | disposition home or self-care (01) ==
PROVIDERS: PCP Family Medicine; Referring Provider Anesthesiology Pain Medicine; Visit Provider Anesthesiology Pain Medicine
DX: F11.20 Opioid dependence, uncomplicated (principal)
CPT/HCPCS: 80307

== ENCOUNTER → 2023-11-24 | Outpatient (CLI) | payer OTHER, SELFPAY ==
[2023-11-24 17:30] LABS: Absolute Lymphocyte Count 2.05 X10^3/uL (0.83-4.51); Absolute Neutrophil Count 5.4 X10^3/uL (2.0-7.7); Basophil# 0.07 X10^3/uL; Basophil% 0.8 % (0-1); Eosinophil# 0.24 X10^3/uL; Eosinophils% 2.8 % (0-5); Hematocrit 48.7 % (37-47); Hemoglobin 15.9 g/dL (12.0-15.0); Lymphocyte # 2.05 X10^3/ul (0.83-4.51); Lymphocyte % 23.9 % (19-41); Mean Corp Hgb Conc 32.6 g/dL (32-36); Mean Corpuscular Hgb 30.5 pg (27.0-32.0); Mean Corpuscular Volume 93.3 fL (81-99); Mean Platelet Vol. 9.2 fl (6.2-12.0); Monocyte# 0.74 X10^3/uL; Monocyte% 8.6 % (0-10); NRBC Flagged by Analyzer 0 % (0-5); Neutrophil # 5.43 X10^3/uL (2.7-7.7); Neutrophil % 63.4 % (47-70); Platelet Count 257 K/mm3 (150-450); RBC Distribution Width CV 13.6 % (11.6-14.6); RBC Distribution Width SD 47.2 fl (35.1-43.9); Red Blood Count 5.22 M/mm3 (4.2-5.4); White Blood Count 8.6 K/mm3 (4.4-11.0)
[2023-11-24 17:31] LABS: Color, Urine Yellow (Yellow); Glucose, Dipstick Normal (Normal); Ketone-Dipstick Negative (Negative); Leukocyte Esterase-Dipstick 100 /ul (Negative); Nitrite-Dipstick Negative (Negative); Occult Blood-Urine 25 /ul (Negative); Protein-Dipstick 15 mg/dl (Negative); Urine Bilirubin Dipstick Negative (Negative); Urine Clarity Sl. Cloudy (Clear); Urine Urobilinogen 1 mg/dl (Normal)
[2023-11-24 17:38] LABS: Squamous Epithelial Cells - UA 10-25 SEEN /hpf (5-10)
[2023-11-24 17:39] LABS: Bacteria 1+ /hpf (None Seen); Red Blood Cells-Urine 0-5 SEEN /hpf (0-5); White Blood Cells 5-10 SEEN /hpf (0-5)
[2023-11-24 17:41] LABS: Calcium Oxalate Crystals Ur 1+ /hpf (<or=2+); Mucous, Urine 1+ /hpf (<or=2+)
[2023-11-24 18:24] LABS: Vitamin D,25 Hydroxy 72.4 ng/mL
[2023-11-24 18:33] LABS: ALB/GLOB Ratio 1.1 RATIO (0.9-2.4); AST(SGOT) 20 U/L (15-37); Alanine Aminotransfer ALT/SGPT 20 U/L (13-56); Albumin, Serum 3.8 g/dL (3.2-5.0); Alkaline Phosphatase 59 U/L (45-117); Anion Gap 4 (5-15); BUN 15 mg/dL (7-18); BUN/Creat Ratio 17.8 RATIO (10-20); Calcium,Total 9.4 mg/dL (8.5-10.1); Chloride 105 mmol/L (98-107); Cholesterol 155 mg/dL (200); Creatinine, Serum 0.84 mg/dL (0.55-1.02); EST Glomerular Filtration Rate 72 mL/min (>60); Est Glom Filt Rate - Afr Amer 88 mL/min (>60); Ferritin 208 ng/mL (8-252); Globulin 3.6 g/dL (2.2-4.2); Glucose 108 mg/dL (74-106); High Density Lipoprotein 35 mg/dL; Iron 33 ug/dL (50-170); Iron Binding Capacity,Total 312 ug/dL (250-450); Potassium 3.3 mmol/L (3.5-5.1); Protein, Total 7.4 g/dL (6.4-8.2); Sodium Level 138 mmol/L (136-145); Thyroid Stim Hormone (TSH) 0.824 uIU/mL (0.358-3.740); Triglycerides 294 mg/dL; Very Low Density Lipoprotein 59 mg/dL (5-40)
== END | disposition home or self-care (01) ==
LOC: MFPLAB 16:09
PROVIDERS: PCP Family Medicine; Visit Provider Family Medicine
DX: F17.200 Nicotine dependence, unspecified, uncomplicated (principal); E78.5 Hyperlipidemia, unspecified; I10 Essential (primary) hypertension; E61.1 Iron deficiency; E55.9 Vitamin D deficiency, unspecified
CPT/HCPCS: 36415; 80053; 80061; 81001; 82306; 82728; 83540; 83550; 83735; 84443; 85025

== ENCOUNTER → 2024-05-03 | Outpatient (CLI) | payer OTHER, SELFPAY ==
[2024-05-03 17:43] LABS: Color, Urine Yellow (Yellow); Glucose, Dipstick Normal (Normal); Ketone-Dipstick Negative (Negative); Leukocyte Esterase-Dipstick 500 /ul (Negative); Nitrite-Dipstick Negative (Negative); Occult Blood-Urine 250 /ul (Negative); Protein-Dipstick 30 mg/dl (Negative); Specific Gravity, Urine 1.015 (1.002-1.030); Urine Bilirubin Dipstick Negative (Negative); Urine Clarity Sl. Cloudy (Clear); Urine Urobilinogen 1 mg/dl (Normal)
[2024-05-03 17:55] LABS: Absolute Lymphocyte Count 1.36 X10^3/uL (0.83-4.51); Absolute Neutrophil Count 5.7 X10^3/uL (2.0-7.7); Basophil# 0.08 X10^3/uL; Eosinophil# 0.33 X10^3/uL; Hematocrit 44.4 % (37-47); Hemoglobin 14.7 g/dL (12.0-15.0); Lymphocyte # 1.36 X10^3/ul (0.83-4.51); Lymphocyte % 16.7 % (19-41); Mean Corp Hgb Conc 33.1 g/dL (32-36); Mean Corpuscular Hgb 30.8 pg (27.0-32.0); Mean Corpuscular Volume 92.9 fL (81-99); Mean Platelet Vol. 9.5 fl (6.2-12.0); Monocyte# 0.64 X10^3/uL; Monocyte% 7.8 % (0-10); NRBC Flagged by Analyzer 0 % (0-5); Neutrophil # 5.73 X10^3/uL (2.7-7.7); Neutrophil % 70.3 % (47-70); Platelet Count 248 K/mm3 (150-450); RBC Distribution Width CV 13.5 % (11.6-14.6); RBC Distribution Width SD 45.9 fl (35.1-43.9); Red Blood Count 4.78 M/mm3 (4.2-5.4); White Blood Count 8.2 K/mm3 (4.4-11.0)
[2024-05-03 18:53] LABS: Calcium Oxalate Crystals Ur 1+ /hpf (<or=2+)
[2024-05-03 18:54] LABS: Mucous, Urine 1+ /hpf (<or=2+); Red Blood Cells-Urine 25-50 SEEN /hpf (0-5); White Blood Cells 10-25 SEEN /hpf (0-5)
[2024-05-03 18:55] LABS: Squamous Epithelial Cells - UA 0-5 SEEN /hpf (5-10)
[2024-05-03 18:56] LABS: Bacteria 1+ /hpf (None Seen)
[2024-05-03 19:38] LABS: ALB/GLOB Ratio 1.1 RATIO (0.9-2.4); AST(SGOT) 16 U/L (15-37); Alanine Aminotransfer ALT/SGPT 22 U/L (13-56); Albumin, Serum 3.7 g/dL (3.2-5.0); Alkaline Phosphatase 56 U/L (45-117); Anion Gap 6 (5-15); BUN 13 mg/dL (7-18); BUN/Creat Ratio 16.6 RATIO (10-20); Calcium,Total 9.3 mg/dL (8.5-10.1); Chloride 110 mmol/L (98-107); Cholesterol 209 mg/dL (200); Creatinine, Serum 0.78 mg/dL (0.55-1.02); EST Glomerular Filtration Rate 79 mL/min (>60); Est Glom Filt Rate - Afr Amer 95 mL/min (>60); Ferritin 224 ng/mL (8-252); Globulin 3.4 g/dL (2.2-4.2); Glucose 90 mg/dL (74-106); High Density Lipoprotein 40 mg/dL; Iron 54 ug/dL (50-170); Iron Binding Capacity,Total 313 ug/dL (250-450); Potassium 3.3 mmol/L (3.5-5.1); Protein, Total 7.1 g/dL (6.4-8.2); Sodium Level 141 mmol/L (136-145); Thyroid Stim Hormone (TSH) 0.277 uIU/mL (0.358-3.740); Triglycerides 258 mg/dL; Very Low Density Lipoprotein 52 mg/dL (5-40)
[2024-05-03 23:13] LABS: Vitamin D,25 Hydroxy 62.1 ng/mL
== END | disposition home or self-care (01) ==
LOC: MFPLAB 14:36
PROVIDERS: PCP Family Medicine; Referring Provider Family Medicine; Visit Provider Family Medicine
DX: R82.81 Pyuria (principal); F17.200 Nicotine dependence, unspecified, uncomplicated; E61.1 Iron deficiency; E78.5 Hyperlipidemia, unspecified; I10 Essential (primary) hypertension; E55.9 Vitamin D deficiency, unspecified
CPT/HCPCS: 36415; 80053; 80061; 81001; 82306; 82728; 83540; 83550; 84443; 85025; 87086; 87088

== ENCOUNTER → 2024-05-09 | Outpatient (CLI) | payer OTHER, SELFPAY ==
[2024-05-09 16:58] LABS: Amphetamine Urine NEGATIVE (<1000 ng/mL); Barbiturate Urine VISTA NEGATIVE (< 200 ng/mL); Benzodiazepine Urine VISTA NEGATIVE (< 200 ng/mL); Cocaine Urine VISTA NEGATIVE (< 300 ng/mL); Ecstacy Urine VISTA NEGATIVE (< 500 ng/mL); Methadone Urine VISTA NEGATIVE (< 300 ng/mL); PCP Urine VISTA NEGATIVE (< 25 ng/mL); THC Urine VISTA NEGATIVE (< 50 ng/mL); Vista UDS pH Range 6
== END | disposition home or self-care (01) ==
LOC: LAB 15:55
PROVIDERS: PCP Family Medicine; Referring Provider Anesthesiology Pain Medicine; Visit Provider Anesthesiology Pain Medicine
DX: F11.20 Opioid dependence, uncomplicated (principal)
CPT/HCPCS: 80307

== ENCOUNTER → 2024-05-17 | Outpatient (CLI) | payer OTHER, SELFPAY ==
[2024-05-17 18:36] LABS: Magnesium 2.2 mg/dL (1.6-2.6); Potassium 3.4 mmol/L (3.5-5.1)
[2024-05-20 08:08] LABS: Anti-Thyroglobulin AB < 1.0 IU/mL (0.0-0.9); Thyroglobulin, Serum Qt. 12.7 ng/mL (1.5-38.5); Thyroid Peroxidase AB < 9 IU/mL (0-34); Thyroid Stim Immunoglob <0.10 IU/L (0.00-0.55)
== END | disposition home or self-care (01) ==
LOC: MFPLAB 13:40
PROVIDERS: PCP Family Medicine; Referring Provider Family Medicine; Visit Provider Family Medicine
DX: R79.89 Other specified abnormal findings of blood chemistry (principal); E87.6 Hypokalemia
CPT/HCPCS: 36415; 83735; 84132; 84432; 84445; 86376; 86800

== ENCOUNTER → 2024-09-27 | Outpatient (CLI) | payer OTHER, SELFPAY ==
[2024-09-27 17:50] LABS: Absolute Lymphocyte Count 1.48 X10^3/uL (0.83-4.51); Basophil# 0.09 X10^3/uL; Basophil% 0.8 % (0-1); Eosinophil# 0.46 X10^3/uL; Eosinophils% 4.2 % (0-5); Hematocrit 45.3 % (37-47); Hemoglobin 15.2 g/dL (12.0-15.0); Lymphocyte # 1.48 X10^3/ul (0.83-4.51); Lymphocyte % 13.6 % (19-41); Mean Corp Hgb Conc 33.6 g/dL (32-36); Mean Corpuscular Hgb 31.3 pg (27.0-32.0); Mean Corpuscular Volume 93.2 fL (81-99); Mean Platelet Vol. 9.5 fl (6.2-12.0); Monocyte# 0.83 X10^3/uL; Monocyte% 7.6 % (0-10); NRBC Flagged by Analyzer 0 % (0-5); Neutrophil # 7.98 X10^3/uL (2.7-7.7); Neutrophil % 73.2 % (47-70); Platelet Count 248 K/mm3 (150-450); RBC Distribution Width CV 13.4 % (11.6-14.6); RBC Distribution Width SD 45.9 fl (35.1-43.9); Red Blood Count 4.86 M/mm3 (4.2-5.4); White Blood Count 10.9 K/mm3 (4.4-11.0)
[2024-09-27 18:34] LABS: ALB/GLOB Ratio 1.5 RATIO (0.9-2.4); AST(SGOT) 26 U/L (<=31); Alanine Aminotransfer ALT/SGPT 15 U/L (<=34); Albumin, Serum 4.2 g/dL (3.4-4.8); Alkaline Phosphatase 63 U/L (35-104); Anion Gap 13 (5-15); BUN 14 mg/dL (4-19); BUN/Creat Ratio 17.3 RATIO (10-20); Calcium,Total 9.4 mg/dL (7.6-11.0); Carbon Dioxide 23.6 mmol/L (21.0-32.0); Chloride 103 mmol/L (98-108); Cholesterol 151 mg/dL (<=200); Creatinine, Serum 0.81 mg/dL (0.70-1.20); EST Glomerular Filtration Rate 81 (>60); Ferritin 223 ng/mL (22-378); Globulin 2.9 g/dL (2.2-4.2); Glucose 117 mg/dL (70-99); High Density Lipoprotein 44 mg/dL; Low Density Lipoprotein Calc. 77 mg/dL; Potassium 3.7 mmol/L (3.3-5.1); Protein, Total 7.1 g/dL (5.9-8.4); Sodium Level 139 mmol/L (133-145); Total Bilirubin 0.26 mg/dL (0.00-1.30); Triglycerides 151 mg/dL; Very Low Density Lipoprotein 30 mg/dL (5-40); Vitamin D,25 Hydroxy 66.5 ng/mL (30-100); cholesterol:hdl ratio screen 3.42
[2024-09-27 19:00] LABS: Iron 48 ug/dL (50-170); Iron Binding Capacity,Total 301 ug/dL (250-450); Iron Binding Capacity,Unsat 253 ug/dL (228-428)
[2024-09-27 20:15] LABS: Color, Urine Yellow (Yellow); Glucose, Dipstick Normal (Normal); Ketone-Dipstick Negative (Negative); Leukocyte Esterase-Dipstick 100 /ul (Negative); Nitrite-Dipstick Negative (Negative); Occult Blood-Urine 10 /ul (Negative); Protein-Dipstick 30 mg/dl (Negative); Urine Bilirubin Dipstick Negative (Negative); Urine Clarity Sl. Cloudy (Clear); Urine Urobilinogen 1 mg/dl (Normal)
[2024-09-27 21:10] LABS: Bacteria 1+ /hpf (None Seen); Calcium Oxalate Crystals Ur 2+ /hpf (<or=2+); Mucous, Urine 2+ /hpf (<or=2+); Red Blood Cells-Urine 0-5 SEEN /hpf (0-5); Squamous Epithelial Cells - UA 5-10 SEEN /hpf (5-10); White Blood Cells 0-5 SEEN /hpf (0-5)
== END | disposition home or self-care (01) ==
LOC: MFPLAB 14:28
PROVIDERS: PCP Family Medicine; Referring Provider Family Medicine; Visit Provider Family Medicine
DX: E61.1 Iron deficiency (principal); F17.200 Nicotine dependence, unspecified, uncomplicated; E55.9 Vitamin D deficiency, unspecified; E78.5 Hyperlipidemia, unspecified
CPT/HCPCS: 36415; 80053; 80061; 81001; 82306; 82728; 83036; 83540; 83550; 85025

== ENCOUNTER 2024-10-30 07:46 | Emergency (ER) | payer OTHER, SELFPAY ==
[2024-10-30 07:47] VITALS: BP 186/95; PULSE 70; RESP 15; TEMP 36.1; O2SAT 100; BMI 29.8
--- NOTE | 2024-10-30 07:57 | EDS_ITS ---
HPI History of Present Illness Chief Complaint: Complaint Informant: patient Onset/Context/Timing Onset: Yesterday Context: Gradual Onset Timing: Continuous Quality: Burning Location: Suprapubic Worsened by: Nothing Relieved by: Nothing Narrative Narrative: Patient presents with possible urinary tract infection that began last night. Patient states she went to a [employer] constitution party yesterday. Patient states that last night she started having some dysuria and frequency. Patient states this feels similar to prior urinary tract infections. Patient denies any fevers or chills. Patient denies any nausea or vomiting. Patient does admit to some mild pain in her low back. Patient denies any flank pain. Patient states nothing makes her symptoms worse and nothing makes them better. [facility] Medical History Degenerative disc disease, cervical Hypertension Home Medications Medication Instructions Recorded Last Taken Type atorvastatin 20 mg tablet 20 mg PO QHS 02/07/14 Unknow n History cholecalciferol (vitamin D3) 50 2,000 unit PO DAILY Unknown History mcg (2,000 unit) tablet cyclobenzaprine 10 mg tablet 10 mg PO TID PRN PRN Pain 02/07/14 Unknown History buprenorphine 10 mcg/hour weekly 1 patch transdermal Q 7D 03/19/20 Unknown History transdermal patch losartan 50 mg-hydrochlorothiazide 1 tab PO DAILY 03/06 07/24 Unknown History 12.5 mg tablet Allergy/AdvReac Type Severity Reaction Status Date / Time amoxicillin (Amoxicillin) Allergy Shortness Verified 10/30/24 07:47 of breath Surgical History History of tonsillectomy History of hysterectomy Social History household members: none Smoking Status: Current every day smoker tobacco type: cigarettes alcohol intake: never substance use type: does not use ROS ROS ED Constitutional Constitutional ED: Denies chills or fever(s) Eyes Eyes: Denies blurry vision or change in vision ENT ENT ED: Denies rhinorrhea or sore throat Cardiovascular Cardiovascular: Denies chest pain or palpitations Respiratory/Chest Respiratory/Chest: Denies cough or dyspnea Gastrointestinal Gastrointestinal: Denies nausea or vomiting Genitourinary Genitourinary ED: Reports dysuria, hematuria and urinary frequency Musculoskeletal Musculoskeletal: Reports back pain; Denies neck pain Integumentary Denies abscess or rash Neurologic Neurologic: Denies headache(s) or weakness Allergic/Immunologic Allergic/Immunologic ED: Denies mouth swelling or urticaria EXAM Physical Exam Const Vital Signs: 10/30/24 07:47 Temperature 97 F L Temperature Source Temporal Pulse Rate 70 Respiratory Rate 15 Blood Pressure 186/95 H Blood Pressure Mean 125 Pulse Ox 100 Oxygen Delivery Method Room Air Positive well nourished and well developed General Appearance ED: well developed and NAD HEENT Reports moist mucous membranes Neck supple and no JVD Resp normal respiratory effort and clear to auscultation bilaterally Cardio regular rate and regular rhythm GI non-tender and non-distended Palpation: soft Neuro oriented x3, CN's II-XII intact bilaterally and no sensory deficits noted Sensorium / Orientation: alert Motor Exam: strength 5/5 throughout Psych mental status grossly normal MDM MDM MDM Narrative Medical decision making narrative: Differential diagnosis includes urinary tract infection, hemorrhagic cystitis, and dysuria. Urinalysis will be obtained to assess for urinary tract infection and hematuria. Lab Data Labs: Laboratory Results - last 24 hr 10/30/24 08:11 Urine Color Yellow Urine Clarity Sl. Cloudy Urine pH 6.0 Ur Specific [place] 1.015 Urine Protein 30 H Urine Glucose (UA) Normal Urine Ketones Negative Urine Occult Blood 250 H Urine Nitrite Negative Urine Bilirubin Negative Urine Urobilinogen Normal Ur Leukocyte Esterase 25 H Urine RBC 25-50 SEEN Urine WBC 0-5 SEEN Ur Squamous Epith Cells 0-5 SEEN Urine Bacteria 0 SEEN Urine Mucus 0 SEEN Radiography Diagnostic Testing: Clinical Impression(s) from Imaging Studies Abdomen/Pelvis CT 10/30/24 09:25 IMPRESSION: Right ureterovesicular junction 2 mm calculus with [id number] upstream hydroureteronephrosis. Bilateral nephrolithiasis. Urinary bladder calculus. Reading Location: [id number] scan of the abdomen pelvis was obtained. There is a 2 mm calculus in the right distal ureter at the ureterovesicular junction. There is mild to moderate hydronephrosis and hydroureter. There is also a calculus in the bladder. There are also bilateral renal calculi. This was interpreted by the radiologist and was also independently reviewed by myself. Treatment and Re-Evaluation :: Patient was advised of her findings. Patient was instructed to drink plenty of fluids. Patient declined analgesic pain medication. Patient was instructed to follow-up with urology in 5 to 7 days. Patient was instructed to return if worse in any way. Patient understood and was agreeable with the plan. All questions were answered. Discharge Plan Triage Chief Complaint: Complaint ED Provider: Abdoulaye Parsons Dx/Rx/DC Orders Clinical Impression: Calculus of distal right ureter, Hematuria Instructions: ED Kidney Stone with Pain Prescriptions: No Action losartan-hydrochlorothiazide 50-12.5 mg tablet 1 tab PO DAILY Patient Comments: TAKE 1 TABLET BY MOUTH ONCE DAILY buprenorphine 10 mcg/hour patch weekly 1 patch TD Q7D cyclobenzaprine 10 MG tablet 10 mg PO TID PRN PRN (Reason: Pain) atorvastatin 20 MG tablet 20 mg PO QHS cholecalciferol (vitamin D3) 2,000 UNIT tablet 2,000 unit PO DAILY Primary Care Provider: David Ferreira Referrals: Kerline Covarrubias MD [Med Staff - Active Staff] - 5-7 Days David Ferreira MD [Primary Care Provider] - 5-7 Days Print Language: Irish Disposition Disposition: Home, Self Care
--- OUTSIDE RECORDS SUMMARY | 2024-10-30 08:17 | XMS RPT_ITS | CCD ---
Author Organization [facility] Care Team Providers Care District Extension Service Agent Name Role Phone Nory Faustin MD Primary Care Provider Dr. David Ferreira Primary Care Provider Dr. David Ferreira Referring Provider MD Joe Pepper Attending Provider Dr. Kalia Hall Attending Provider David Ferreira Primary Care Unavailable David Ferreira Attending Unavailable David Ferreira Referring Unavailable David Ferreira Primary Care Unavailable David Ferreira Attending Unavailable David Ferreira Referring Unavailable David Ferreira Primary Care Unavailable David Ferreira Attending Unavailable David Ferreira Referring Unavailable David Ferreira Primary Care Unavailable David Ferreira Attending Unavailable David Ferreira Primary Care Unavailable Patricia Gonzalez Attending Unavailable Patricia Gonzalez Referring Unavailable Allergies Allergy Classification Reported Allergen(s) Allergy Type Date of Onset Reaction(s) Facility (8 sources) Amoxicillin; Translations: [AMOXICILLIN] Drug Allergy 4 Shortness of Breath [facility] (1 source) Amoxicillin Drug Allergy 4 [facility] Repository Medications Current Medications Medication Drug Class(es) Dates Sig (Normalized) Sig (Original) atorvastatin 20 mg oral tablet (7 sources) HMG-CoA Reductase Inhibitor Start: 02-07-2014 take 20 mg by mouth at bedtime Atorvastatin Active 20 MG PO AT BEDTIME February 07, 2014 1:00am Comment on above: take 1 tablet by miriam th nightly cholecalciferol 0.05 mg oral tablet (7 sources) Vitamin D Start: 02-07-2014 take 2000 [IU] by mouth once daily Cholecalciferol (Vitamin D3) Active 2000 UNIT PO DAILY February 07, 2014 1:00am Comment on above: Take by mouth. cyclobenzaprine hydrochloride 10 mg oral tablet (5 sources) Muscle Relaxant Start: 02-07-2014 take 10 mg by mouth three times daily as needed Cyclobenzaprine Active 10 MG PO 3 TIMES DAILY NEEDED February 07, 2014 1:00am Completed/Discontinued Medications Medication Drug Class(es) Dates Sig (Normalized) Sig (Original) acetaminophen 325 mg / HYDROcodone bitartrate 5 mg oral tablet (2 sources) Opioid Agonist Start: 01-16-2023 End: 01-22-2023 take 1 tablet by mouth every six hours as needed Hydrocodone-Acetam inophen Discontinued 1 TABLET PO EVERY 6 HOURS NEEDED 10 January 16, 2023 January 22, 2023 9:29am acetaminophen 325 mg / oxyCODONE hydrochloride 5 mg oral tablet (5 sources) Opioid Agonist Start: 02-08-2014 End: 03-19-2020 take 1 tablet by mouth every six hours as needed Oxycodone-Acetamin ophen Discontinued 1 - 2 TABLET PO EVERY 6 HOURS NEEDED 60 February 08, 2014 1:00am March 19, 2020 2:44pm buprenorphine 0.075 mg buccal film (7 sources) Partial Opioid Agonist Start: 02-17-2022 BELBUCA [address] 1 FILM BETWEEN CHEEK AND GUM twice a day 0 02/17/2022 Active Start: 03-19-2020 apply 1 dose transde rmal route every week Buprenorphine Active 1 PATCH TD Q7D March 19, 2020 1:00am Comment on above: place 1 FILM BETWEEN CHEEK AND GUM twice a day cephalexin 500 mg oral capsule (2 sources) Cephalosporin Antibacterial Start: 023 End: 024 take 500 mg by mouth every six hours Cephalexin Discontinued 500 MG PO EVERY 6 HOURS 40 November 15, 2022 12:00am April 20, 2023 4:08pm ergocalciferol 1.25 mg oral capsule (2 sources) Provitamin D2 Compound take 1 capsule by mouth every week ergocalciferol 50,000 unit capsule (VITAMIN D2, DRISDOL) Take 50,000 Units by mouth once each week. 0 Active Comment on above: Take 50,000 Units by mouth once each week. ferrous sulfate 325 mg oral tablet (2 sources) Start: 022 take 1 tablet by mouth once daily FEROSUL 325 mg (65 mg iron) tablet Take 1 tablet by mouth once daily. 0 01/08/2022 Active Comment on above: Take 1 tablet by miriam th once daily. gabapentin 300 mg oral capsule (7 sources) Anti-epileptic Agent Start: 014 End: 020 take 900 mg by mouth three times daily at mealtime Gabapentin Discontinued 900 MG PO 3 TIMES DAILY WITH MEALS February 07, 2014 1:00am March 19, 2020 2:42pm Start: 09-14-2013 gabapentin (NE URONTIN) 300 mg capsule Take up to 900mg TID as tolerated 270 capsule 1 09/14/2013 Active Comment on above: Take up to 900mg TID as tolerated hydroCHLOROthiazide 12.5 mg / losartan potassium 50 mg oral tablet (7 sources) Thiazide Diuretic, Angiotensin 2 Receptor Sujatha Start: 2 take 1 tablet by mouth once daily losartan-hydro CHLOROthiazide (HYZAAR) 50-12.5 mg per tablet Take 1 tablet by mouth once daily. 0 12/08/2021 Active Start: 03-19-2020 take 1 tablet by miriam th once daily Losartan-Hydrochlorothiazide Active 1 TA BLET PO DAILY March 19, 2020 1:00am Comment on above: Take 1 tablet by miriam once daily. ibuprofen 200 mg oral capsule (2 sources) Nonsteroidal Anti-inflammatory Drug Ibuprofen 200 mg ORAL Cap Take by mouth. 0 Active Comment on above: Take by mouth. lisinopril 10 mg oral tablet (5 sources) Angiotensin Converting Enzyme Inhibitor Start: 4 End: 0 take 10 mg by mouth at bedtime Lisinopril Discontinued 10 MG PO AT BEDTIME February 07, 2014 1:00am March 19, 2020 2:43pm losartan potassium 50 mg oral tablet (5 sources) Angiotensin 2 Receptor Sujatha Start: 4 End: 0 take 50 mg by mouth at bedtime Losartan Discontinued 50 MG PO AT BEDTIME February 07, 2014 1:00am March 19, 2020 2:43pm meloxicam 15 mg oral tablet (10 sources) Nonsteroidal Anti-inflammatory Drug Start: 4 End: 4 take 15 mg by mouth once daily Meloxicam Discontinued 15 MG PO DAILY March 19, 2020 1:00am April 20, 2023 4:08pm ondansetron 8 mg oral tablet (5 sources) Serotonin-3 Receptor Antagonist Start: 4 End: 0 take 8 mg by mouth every eight hours as needed Ondansetron Hcl Discontinued 8 MG PO EVERY 8 HOURS NEEDED February 08, 2014 1:00am March 19, 2020 2:44pm ROYAL JELLY-BEE POLLEN ORAL (2 sources) ROYAL JELLY-BEE POLLEN ORAL Take by mouth. 0 Active Comment on above: Take by mouth. sertraline 100 mg oral tablet (7 sources) Serotonin Reuptake Inhibitor Start: 4 End: 0 take 100 mg by mouth once daily Sertraline Discontinued 100 MG PO DAILY February 07, 2014 1:00am March 19, 2020 2:44pm take 1 tablet by mouth once teresa y sertraline 50 mg tablet Take 50 mg by mouth once daily. 0 Active Comment on above: Take 50 mg by mouth once daily. traMADol hydrochloride 50 mg oral tablet (2 sources) Opioid Agonist take 1 tablet by mouth every eight hours as needed traMADol 50 mg tablet Take 50 mg by mouth every 8 hours as needed. 0 Active Comment on above: Take 50 mg by mouth every 8 hours as needed. zolpidem tartrate 5 mg oral tablet (5 sources) gamma-Aminobutyr ic Acid-ergic Agonist Start: 4 End: 0 take 10 mg by mouth at bedtime as needed Zolpidem Discontinued 10 MG PO AT BEDTIME NEEDED February 08, 2014 1:00am March 19, 2020 2:45pm Problems Active Problems Problem Classification Problem Date Documented Da te Episodic/Chronic Calculus of urinary tract (2 sources) Ureteric stone; Translations: [Calculus of ureter] 11-23-2022 Episodic Fracture of lower limb (2 sources) Metatarsal bone fracture; Translations: [Nondisplaced fracture of fifth metatarsal bone, right foot, initial encounter for closed fracture] 01-16-2023 Episodic Open wounds of extremities (3 sources) Laceration of left thumb; Translations: [Laceration without foreign body of left thumb without damage to nail, initial encounter] 03-08-2022 Episodic Other injuries and conditions due to external causes (1 source) Injury of left hand; Translations: [Unspecified injury of left wrist, hand and finger(s), initial encounter] Episodic Skin and subcutaneous tissue infections (2 sources) Abscess of abdominal wall; Translations: [Cutaneous abscess of abdominal wall] 11-23-2022 Episodic Substance-related disorders (2 sources) Opioid dependence, uncomplicated; Translations: [Nicotine dependence, unspecified, uncomplicated] Onset: 12-14-2023 Chronic Unclassified (1 source) Pyuria; Translations: [Pyuria] Onset: 05-20-2024 Past or Other Problems Problem Classification Problem Date Documented Da te Episodic/Chronic Other screening for suspected conditions (not mental disorders or infectious disease) (1 source) Other specified abnormal findings of blood chemistry; Translations: [Other specified abnormal findings of blood chemistry] Onset: 05-31-2024 Episodic Results Test Name Value Interpretation Reference Range Facility Hemoglobin A1con 09-28-2024 HbA1c (Bld) [Mass fraction] 6.0 % High <=5.6 [facility] Comment on above: Order Comment: Order Date: 03/15/24 Order Info: 0184-1 - CBCD Result Comment: Norm al < 5.7 % Prediabetic 5.7 - 6.4 % Diabetic >or= 6.5 % Please note range changes. Performed By: #### L 501.9520, L100.0100, L500.4100, L500.4050, L503.6150, L506.1000, L503.6075, L503.6550 #### [facility] [address] [place], [place], [id number] CBC W/Diff, Automatedon 09-05 Absolute Lymph 1.48 X10 3/uL Normal 0.83-4.51 [facility] Comment on above: Performed By: #### L 3300.6900, L3400.4700, L3300.6820 #### [facility] [address] [place], [address] Absolute Neut 8.0 X10 3/uL High 2.0-7.7 [facility] Comment on above: Performed By: #### L 3300.6900, L3400.4700, L3300.6820 #### [facility] [address] [place], [address] Basophils/100 WBC (Bld) 0.8 % Normal 0-1 [facility] Comment on above: Performed By: #### L 3300.6900, L3400.4700, L3300.6820 #### [facility] [address] [place], [address] Eosinophils/100 WBC (Bld) 4.2 % Normal 0-5 [facility] Comment on above: Performed By: #### L 3300.6900, L3400.4700, [id number] #### [facility] [address] [place], [address] Erythrocyte distribution width (RBC) [Ratio] 13.4 % Normal 11.6-14.6 [facility] Comment on above: Performed By: #### L 3300.6900, L3400.4700, L3300.6820 #### [facility] [address] [place], [address] Hematocrit (Bld) [Volume fraction] 45.3 % Normal 37-47 [facility] Comment on above: Performed By: #### L 3300.6900, L3400.4700, L3300.6820 #### [facility] [address] [place], [address] Hemoglobin (Bld) [Mass/Vol] 15.2 g/dL High 12.0-15.0 [facility] Comment on above: Performed By: #### L 3300.6900, L3400.4700, L3300.6820 #### [facility] [address] [place], [address] IG% 0.600 Normal 0.0-0.9 [facility] Comment on above: Result Comment: IG% - Immature Granulocytes (promyelocytes, myelocytes and metamyelocytes) > 1% indicates that a LEFT SHIFT is Present. Performed By: #### L 3300.6900, L3400.4700, L3300.6820 #### [facility] [address] [place], [address] Lymphocytes/100 WBC (Bld) 13.6 % Low 19-41 [facility] Comment on above: Performed By: #### L 3300.6900, L3400.4700, L3300.6820 #### [facility] [address] [place], [address] MCH (RBC) [Entitic mass] 31.3 pg Normal 27.0-32.0 [facility] Comment on above: Performed By: #### L 3300.6900, L3400.4700, L3300.6820 #### [facility] [address] [place], [address] MCHC (RBC) [Mass/Vol] 33.6 g/dL Normal 32-36 [facility] Comment on above: Performed By: #### L 3300.6900, L3400.4700, L3300.6820 #### [facility] [address] [place], [address] MCV (RBC) [Entitic vol] 93.2 fL Normal 81-99 [facility] Comment on above: Performed By: #### L 3300.6900, L3400.4700, [id number] #### [facility] [address] [place], [address] Monocytes/100 WBC (Bld) 7.6 % Normal 0-10 [facility] Comment on above: Performed By: #### L 3300.6900, L3400.4700, [id number] #### [facility] [address] [place], [address] Neutrophils/100 WBC (Bld) 73.2 % High 47-70 [facility] Comment on above: Performed By: #### L 3300.6900, L3400.4700, L3300.6820 #### [facility] [address] [place], [address] Nucleated RBC (Bld) [#/Vol] 0 10*3/uL Normal 0-5 [facility] Comment on above: Performed By: #### L 3300.6900, L3400.4700, L3300.6820 #### [facility] [address] [place], [address] Platelet mean volume (Bld) [Entitic vol] 9.5 fL Normal 6.2-12.0 [facility] Comment on above: Performed By: #### L 3300.6900, L3400.4700, L3300.6820 #### [facility] [address] [place], [address] Platelets (Bld) [#/Vol] 248 10*3/uL Normal 150-450 [facility] Comment on above: Performed By: #### L 3300.6900, L3400.4700, [id number] #### [facility] [address] [place], [address] RBC (Bld) [#/Vol] 4.86 10*6/uL Normal 4.2-5.4 [facility] Comment on above: Performed By: #### L 3300.6900, L3400.4700, L3300.6820 #### [facility] [address] [place], [address] RDW SD 45.9 fl High 35.1-43.9 [facility] Comment on above: Performed By: #### L 3300.6900, L3400.4700, [id number] #### [facility] [address] [place], [address] WBC (Bld) [#/Vol] 10.9 10*3/uL Normal 4.4-11.0 [facility] Comment on above: Performed By: #### L 3300.6900, L3400.4700, L3300.6820 #### [facility] [address] [place], [address] Comprehensive Metabolic Prof ilon 09-27-2024 Albumin [Mass/Vol] 4.2 g/dL Normal 3.4-4.8 [facility] Comment on above: Performed By: #### L 3300.6900, L3400.4700, L3300.6820 #### [facility] [address] [place], [address] Albumin/Globulin [Mass ratio] 1.5 {ratio} Normal 0.9-2.4 [facility] Comment on above: Performed By: #### L 3300.6900, L3400.4700, L3300.6820 #### [facility] [address] [place], [address] ALK PHOS 63 U/L Normal 35-104 [facility] Comment on above: Performed By: #### L 3300.6900, L3400.4700, L3300.6820 #### [facility] [address] [place], [address] ALT [Catalytic activity/Vol] 15 U/L Normal <=34 [facility] Comment on above: Performed By: #### L 3300.6900, L3400.4700, L3300.6820 #### [facility] [address] [place], [address] AST [Catalytic activity/Vol] 26 U/L Normal <=31 [facility] Comment on above: Performed By: #### L 3300.6900, L3400.4700, L3300.6820 #### [facility] [address] [place], [address] Bilirubin [Mass/Vol] 0.26 mg/dL Normal 0.00-1.30 [facility] Comment on above: Performed By: #### L 3300.6900, L3400.4700, L3300.6820 #### [facility] [address] [place], [address] BUN/CRE 17.3 RATIO Normal 10-20 [facility] Comment on above: Performed By: #### L 3300.6900, L3400.4700, L3300.6820 #### [facility] [address] [place], [address] Calcium [Mass/Vol] 9.4 mg/dL Normal 7.6-11.0 [facility] Comment on above: Performed By: #### L 3300.6900, L3400.4700, L3300.6820 #### [facility] [address] [place], [address] Chloride [Moles/Vol] 103 mmol/L Normal 98-108 [facility] Comment on above: Performed By: #### L 3300.6900, L3400.4700, L3300.6820 #### [facility] [address] [place], [address] CO2 [Moles/Vol] 23.6 mmol/L Normal 21.0-32.0 [facility] Comment on above: Performed By: #### L 3300.6900, L3400.4700, L3300.6820 #### [facility] [address] [place], [address] Creatinine [Mass/Vol] 0.81 mg/dL Normal 0.70-1.20 [facility] Comment on above: Performed By: #### L 3300.6900, L3400.4700, L3300.6820 #### [facility] [address] [place], [address] GAP 13 Normal 5-15 [facility] Comment on above: Performed By: #### L 3300.6900, L3400.4700, L3300.6820 #### [facility] [address] [place], [address] GFR/1.73 sq M.predicted among non-blacks MDRD (S/P/Bld) [Vol rate/Area] 81 mL/min/{1.73_m2} Normal >60 [facility] Comment on above: Result Comment: mL/m in/1.73m2 CKD-EPI Creatinine Equation (2020) Performed By: #### L 3300.6900, L3400.4700, L3300.6820 #### [facility] [address] [place], [address] Globulin (S) [Mass/Vol] 2.9 g/dL Normal 2.2-4.2 [facility] Comment on above: Performed By: #### L 3300.6900, L3400.4700, L3300.6820 #### [facility] [address] [place], [address] Glucose [Mass/Vol] 117 mg/dL High 70-99 [facility] Comment on above: Performed By: #### L 3300.6900, L3400.4700, L3300.6820 #### [facility] [address] [place], [address] Potassium [Moles/Vol] 3.7 mmol/L Normal 3.3-5.1 [facility] Comment on above: Performed By: #### L 3300.6900, L3400.4700, L3300.6820 #### [facility] [address] [place], [address] Sodium [Moles/Vol] 139 mmol/L Normal 133-145 [facility] Comment on above: Performed By: #### L 3300.6900, L3400.4700, L3300.6820 #### [facility] [address] [place], [address] T PROT 7.1 g/dL Normal 5.9-8.4 [facility] Comment on above: Performed By: #### L 3300.6900, L3400.4700, L3300.6820 #### [facility] [address] [place], [address] Urea nitrogen [Mass/Vol] 14 mg/dL Normal 4-19 [facility] Comment on above: Performed By: #### L 3300.6900, L3400.4700, L3300.6820 #### [facility] [address] [place], [address] Ferritinon 09-27-2024 Ferritin [Mass/Vol] 223 ng/mL Normal 22-378 [facility] Comment on above: Performed By: #### L 501.9520, L100.0100, L500.4100, L500.4050, L503.6150, L506.1000, L503.6075, L503.6550 #### [facility] [address] [place], [address] Iron+Iron Binding Capacityon 09-27-2024 Iron [Mass/Vol] 48 ug/dL Low 50-170 [facility] Comment on above: Performed By: #### L 501.9520, L100.0100, L500.4100, L500.4050, L503.6150, L506.1000, L503.6075, L503.6550 #### [facility] [address] [place], [address] IRON SATURATION 16.0 Normal 13-59 [facility] Comment on above: Performed By: #### L 501.9520, L100.0100, L500.4100, L500.4050, L503.6150, L506.1000, L503.6075, L503.6550 #### [facility] [address] [place], [address] TIBC 301 ug/dL Normal 250-450 [facility] Comment on above: Performed By: #### L 501.9520, L100.0100, L500.4100, L500.4050, L503.6150, L506.1000, L503.6075, L503.6550 #### [facility] [address] [place], [address] UIBC 253 ug/dL Normal 228-428 [facility] Comment on above: Performed By: #### L 501.9520, L100.0100, L500.4100, L500.4050, L503.6150, L506.1000, L503.6075, L503.6550 #### [facility] [address] [place], [address] Lipid Profileon 09-27-2024 CHOL:HDL 3.42 Normal [facility] Comment on above: Performed By: #### L 501.9520, L100.0100, L500.4100, L500.4050, L503.6150, L506.1000, L503.6075, L503.6550 #### [facility] [address] [place], [address] Cholesterol [Mass/Vol] 151 mg/dL Normal <=200 [facility] Comment on above: Result Comment: Chol esterol level, Desirable <200 mg/dL Borderline high cholesterol 200-239 mg/dL High cholesterol >=240 mg/dL Recommendations of the NCEP Adult Treatment Panel for the following risk-cutoff thresholds for the [place] population. Performed By: #### L 501.9520, L100.0100, L500.4100, L500.4050, L503.6150, L506.1000, L503.6075, L503.6550 #### [facility] [address] [place], [address] Cholesterol in HDL [Mass/Vol] 44 mg/dL Normal [facility] Comment on above: Result Comment: Opal onal Cholesterol Education Program (NCEP) guidelines: <40 mg/dL: Low HDL-cholesterol (major risk factor for CHD) >= 60 mg/dL: High HDL-cholesterol (negative risk factor for CHD) HDL-cholesterol is affected by a number of factors, e.g. smoking, exercise, hormones, sex and age. Performed By: #### L 501.9520, L100.0100, L500.4100, L500.4050, L503.6150, L506.1000, L503.6075, L503.6550 #### [facility] [address] [place], [address] Cholesterol in LDL [Mass/Vol] 77 mg/dL Normal [facility] Comment on above: Result Comment: Bord ftdjqk=511-789 mg/dL Higher Yolg=365 mg/dL or greater Performed By: #### L 501.9520, L100.0100, L500.4100, L500.4050, L503.6150, L506.1000, L503.6075, L503.6550 #### [facility] [address] [place], [address] Cholesterol in VLDL [Mass/Vol] 30 mg/dL Normal 5-40 [facility] Comment on above: Performed By: #### L 501.9520, L100.0100, L500.4100, L500.4050, L503.6150, L506.1000, L503.6075, L503.6550 #### [facility] [address] [place], [address] Triglyceride [Mass/Vol] 151 mg/dL Normal [facility] Comment on above: Result Comment: The drugs N-Acetylcysteine and Metamizole may falsely depress this assay. Normal range: <150 mg/dL Borderline High: 150-199 mg/dL High: 200-499 mg/dL Very High: >500 mg/dL Performed By: #### L 501.9520, L100.0100, L500.4100, L500.4050, L503.6150, L506.1000, L503.6075, L503.6550 #### [facility] [address] [place], [address] Urinalysis, Completeon 09-27 BACTERIA 1+ /hpf Normal None Seen [facility] Comment on above: Order Comment: Order Date: 03/15/24 Order Info: [id number] - CBCD Performed By: #### L 501.9520, L100.0100, L500.4100, L500.4050, L503.6150, L506.1000, L503.6075, L503.6550 #### [facility] [address] [place], [address] CA OX CRYSTAL 2+ /hpf Normal [facility] Comment on above: Order Comment: Order Date: 03/15/24 Order Info: [id number] - CBCD Performed By: #### L 501.9520, L100.0100, L500.4100, L500.4050, L503.6150, L506.1000, L503.6075, L503.6550 #### [facility] [address] [place], [address] EPI,SQUAMOUS 5-10 SEEN Normal 5-10 [facility] Comment on above: Order Comment: Order Date: 03/15/24 Order Info: [id number] - CBCD Performed By: #### L 501.9520, L100.0100, L500.4100, L500.4050, L503.6150, L506.1000, L503.6075, L503.6550 #### [facility] [address] [place], [address] Mucus Ql (Urine sed) 2+ /hpf Normal [facility] Comment on above: Order Comment: Order Date: 03/15/24 Order Info: [id number] - CBCD Performed By: #### L 501.9520, L100.0100, L500.4100, L500.4050, L503.6150, L506.1000, L503.6075, L503.6550 #### [facility] [address] [place], [address] RBC 0-5 SEEN Normal 0-5 [facility] Comment on above: Order Comment: Order Date: 03/15/24 Order Info: [id number] - CBCD Performed By: #### L 501.9520, L100.0100, L500.4100, L500.4050, L503.6150, L506.1000, L503.6075, L503.6550 #### [facility] [address] [place], [address] WBC 0-5 SEEN Normal 0-5 [facility] Comment on above: Order Comment: Order Date: 03/15/24 Order Info: [id number] - CBCD Performed By: #### L 501.9520, L100.0100, L500.4100, L500.4050, L503.6150, L506.1000, L503.6075, L503.6550 #### [facility] [address] [place], [address] Vitamin D,25 Hydroxyon 09-27 Vitamin D 25-OH 66.5 ng/mL Normal 30-100 [facility] Comment on above: Result Comment: Lise min D Status Deficiency: <20 ng/mL (50nmol/L) Insufficiency: 20-30 ng/mL (50-75 nmol/L) Sufficiency: 30-100 ng/mL (75-250 nmol/L) Toxicity: >100 ng/mL (>250 nmol/L) Performed By: #### L 501.9520, L100.0100, L500.4100, L500.4050, L503.6150, L506.1000, L503.6075, L503.6550 #### [facility] [address] [place], [place], [id number] Thyroglobulin w/Anti-TG ABon 05-20-2024 Anti-TG AB < 1.0 Normal 0.0-0.9 [facility] Comment on above: Result Comment: Thyr oglobulin Antibody measured by Jacquie Aleyda Methodology It should be noted that the presence of thyroglobulin antibodies may not be pathogenic nor diagnostic, especially at very low levels. The assay cardiothoracic anesthesia technician has found that four percent of individuals without evidence of thyroid disease or autoimmunity will have positive TgAb levels up to 4 IU/mL. Performed By: #### L 3300.6900, L3400.4700, L3300.6820 #### [facility] [address] [facility] [address] THYROGLOB QUANT 12.7 ng/mL Normal 1.5-38.5 [facility] Comment on above: Result Comment: Acco rding to the National Academy of Clinical Biochemistry, the reference interval for Thyroglobulin (TG) should be related to euthyroid patients and not for patients who underwent thyroidectomy. TG reference intervals for these patients depend on the residual mass of the thyroid tissue left after surgery. Establishing a post-operative baseline is recommended. The assay limit of quantitation is 0.1 ng/mL Thyroglobulin measured by Jacquie Aleyda Immunometric Assay Performed By: #### L 3300.6900, L3400.4700, L3300.6820 #### [facility] [address] [facility] [id number] Thyroid Peroxidase ABon - THYR PEROX AB < 9 Normal 0-34 [facility] Comment on above: Result Comment: Perf ormed at: [facility] [address] [id number] [place] Hand: Jose Ayon MD, Phone: [phone] Performed at: [facility] [id number] [place] [employer]: Jayson Souza PhD, Phone: [phone] Performed By: #### L 3300.6900, L3400.4700, L3300.6820 #### [facility] [address] [facility] [address] Thyroid Stim Immunoglobon THY STIM IMMUNO <0.10 Normal 0.00-0.55 [facility] Comment on above: Performed By: #### L 3300.6900, L3400.4700, L3300.6820 #### [facility] [address] [place], [address] L499.5025on 05-17-2024 Potassium [Moles/Vol] 3.4 mmol/L Low 3.5-5.1 [facility] Comment on above: Order Comment: Order Date: 05/06/24Order Info: 2823-3 - KComments: due 05/10/24Order Info: [id number] - MG Performed By: #### L 3300.6900, L3400.4700, L3300.6820 #### [facility] [address] [place], [address] Magnesiumon 05-17-2024 Magnesium [Mass/Vol] 2.2 mg/dL Normal 1.6-2.6 [facility] Comment on above: Order Comment: Order Date: 05/06/24Order Info: 2823-3 - KComments: due 05/10/24Order Info: 01407-4 - MG Performed By: #### L 3300.6900, L3400.4700, L3300.6820 #### [facility] [address] [place], [address] L3410.9998on 05-12-2024 [facility] Misc. Normal [facility] Comment on above: Order Comment: [id number] 0BUPRINORPHINE Result Comment: TEST RESULTS LIMITS Buprenorphine, Urine Negative ng/mL Cutoff=10 TESTING PERFORMED AT [facility]. ORIGINAL REPORT ON FILE IN LAB CONTAINS ADDITIONAL TEST SITE INFORMATION. Performed By: #### L 3300.6900, L3400.4700, L3300.6820 #### [facility] [address] [place], [place], [address] [facility] Misc. Normal [facility] Comment on above: Order Comment: [id number] 3MED TOX Result Comment: [phone] 6+OXYCODONE-BUND (ng/mL) DRUG RESULT SCREEN CUTOFF ____ Amphetamines,Urine Negative ng/mL 1000 Amphetamine test includes Amphetamine and Methamphetamine. Barbiturates Negative ng/mL 200 Benzodiazepines Negative ng/mL 200 Cannabinoid Negative ng/mL 20 Cocaine (Metab) Negative ng/mL 300 Opiates Negative ng/mL 300 Opiates test includes Codeine, Morphine, Hydromorphone, Hydrocodone. Oxycodone/Oxymorphone,Urine Negative ng/mL 300 Test includes Oxycodone and Oxymorphone. TESTING PERFORMED AT [facility]. ORIGINAL REPORT ON FILE IN LAB CONTAINS ADDITIONAL TEST SITE INFORMATION. Performed By: #### L 3300.6900, L3400.4700, L3300.6820 #### [facility] [address] [place], [place], [address] Urine Drug Screen (VISTA)on 05-09-2024 AMPHETAMINES Negative Normal <1000 ng/mL [facility] Comment on above: Order Comment: UNK Performed By: #### L 3300.6900, L3400.4700, L3300.6820 #### [facility] [address] [place], [address] BARBITIURATES Negative Normal < 200 ng/mL [facility] Comment on above: Order Comment: UNK Performed By: #### L 3300.6900, L3400.4700, L3300.6820 #### [facility] [address] [place], [address] BENZODIAZIPINE Negative Normal < 200 ng/mL [facility] Comment on above: Order Comment: UNK Performed By: #### L 3300.6900, L3400.4700, L3300.6820 #### [facility] [address] [place], [address] COCAINE Negative Normal < 300 ng/mL [facility] Comment on above: Order Comment: UNK Performed By: #### L 3300.6900, L3400.4700, L3300.6820 #### [facility] [address] [place], [address] ECSTACY Negative Normal < 500 ng/mL [facility] Comment on above: Order Comment: UNK Performed By: #### L 3300.6900, L3400.4700, L3300.6820 #### [facility] [address] [place], [address] METHADONE Negative Normal < 300 ng/mL [facility] Comment on above: Order Comment: UNK Performed By: #### L 3300.6900, L3400.4700, L3300.6820 #### [facility] [address] [place], [address] OPIATES Negative Normal < 300 ng/mL [facility] Comment on above: Order Comment: UNK Performed By: #### L 3300.6900, L3400.4700, L3300.6820 #### [facility] [address] [place], [address] PCP Negative Normal < 25 ng/mL [facility] Comment on above: Order Comment: UNK Performed By: #### L 3300.6900, L3400.4700, L3300.6820 #### [facility] [address] [place], [address] THC Negative Normal < 50 ng/mL [facility] Comment on above: Order Comment: UNK Performed By: #### L 3300.6900, L3400.4700, L3300.6820 #### [facility] [address] [place], [address] VISTA UDS PH 6 Normal [facility] Comment on above: Order Comment: UNK Performed By: #### L 3300.6900, L3400.4700, L3300.6820 #### [facility] [address] [place], [address] Urine Cultureon 05-07-2024 [facility] CULTURE SENS.-ADD ON FROM 05/03 Below infection level. Mixed Gram Positive Organisms [place] Count 1000-10,000 MIXC Mixed contaminants. Submit a new specimen if indicated. Normal [facility] Comment on above: Performed By: #### L 3300.6900, L3400.4700, L3300.6820 #### [facility] [address] [place], [address] CBC W/Diff, Automatedon 04-07 Absolute Lymph 1.36 X10 3/uL Normal 0.83-4.51 [facility] Comment on above: Order Comment: Order Date: 03/15/24 Order Info: 0184-1 - CBCD Performed By: #### L 501.9520, L100.0100, L500.4100, L500.4050, L503.6150, L506.1000, L503.6075, L503.6550 #### [facility] [address] [place], [address] Absolute Neut 5.7 X10 3/uL Normal 2.0-7.7 [facility] Comment on above: Order Comment: Order Date: 03/15/24 Order Info: 0184- - CBCD Performed By: #### L 501.9520, L100.0100, L500.4100, L500.4050, L503.6150, L506.1000, L503.6075, L503.6550 #### [facility] [address] [place], [address] Basophils/100 WBC (Bld) 1.0 % Normal 0-1 [facility] Comment on above: Order Comment: Order Date: 03/15/24 Order Info: 0184 - CBCD Performed By: #### L 501.9520, L100.0100, L500.4100, L500.4050, L503.6150, L506.1000, L503.6075, L503.6550 #### [facility] [address] [place], [address] Eosinophils/100 WBC (Bld) 4.0 % Normal 0-5 [facility] Comment on above: Order Comment: Order Date: 03/15/24 Order Info: 0184- - CBCD Performed By: #### L 501.9520, L100.0100, L500.4100, L500.4050, L503.6150, L506.1000, L503.6075, L503.6550 #### [facility] [address] [place], [address] Erythrocyte distribution width (RBC) [Ratio] 13.5 % Normal 11.6-14.6 [facility] Comment on above: Order Comment: Order Date: 03/15/24 Order Info: 0184- - CBCD Performed By: #### L 501.9520, L100.0100, L500.4100, L500.4050, L503.6150, L506.1000, L503.6075, L503.6550 #### [facility] [address] [place], [address] Hematocrit (Bld) [Volume fraction] 44.4 % Normal 37-47 [facility] Comment on above: Order Comment: Order Date: 03/15/24 Order Info: 0184-1 - CBCD Performed By: #### L 501.9520, L100.0100, L500.4100, L500.4050, L503.6150, L506.1000, L503.6075, L503.6550 #### [facility] [address] [place], [address] Hemoglobin (Bld) [Mass/Vol] 14.7 g/dL Normal 12.0-15.0 [facility] Comment on above: Order Comment: Order Date: 03/15/24 Order Info: 0184-1 - CBCD Performed By: #### L 501.9520, L100.0100, L500.4100, L500.4050, L503.6150, L506.1000, L503.6075, L503.6550 #### [facility] [address] [place], [address] IG% 0.200 Normal 0.0-0.9 [facility] Comment on above: Order Comment: Order Date: 03/15/24 Order Info: 0184-1 - CBCD Result Comment: IG% - Immature Granulocytes (promyelocytes, myelocytes and metamyelocytes) > 1% indicates that a LEFT SHIFT is Present. Performed By: #### L 501.9520, L100.0100, L500.4100, L500.4050, L503.6150, L506.1000, L503.6075, L503.6550 #### [facility] [address] [place], [address] Lymphocytes/100 WBC (Bld) 16.7 % Low 19-41 [facility] Comment on above: Order Comment: Order Date: 03/15/24 Order Info: 01807-05 - CBCD Performed By: #### L 501.9520, L100.0100, L500.4100, L500.4050, L503.6150, L506.1000, L503.6075, L503.6550 #### [facility] [address] [place], [address] MCH (RBC) [Entitic mass] 30.8 pg Normal 27.0-32.0 [facility] Comment on above: Order Comment: Order Date: 03/15/24 Order Info: 01807-05 - CBCD Performed By: #### L 501.9520, L100.0100, L500.4100, L500.4050, L503.6150, L506.1000, L503.6075, L503.6550 #### [facility] [address] [place], [address] MCHC (RBC) [Mass/Vol] 33.1 g/dL Normal 32-36 [facility] Comment on above: Order Comment: Order Date: 03/15/24 Order Info: 01807-05 - CBCD Performed By: #### L 501.9520, L100.0100, L500.4100, L500.4050, L503.6150, L506.1000, L503.6075, L503.6550 #### [facility] [address] [place], [address] MCV (RBC) [Entitic vol] 92.9 fL Normal 81-99 [facility] Comment on above: Order Comment: Order Date: 03/15/24 Order Info: 01807-05 - CBCD Performed By: #### L 501.9520, L100.0100, L500.4100, L500.4050, L503.6150, L506.1000, L503.6075, L503.6550 #### [facility] [address] [place], [address] Monocytes/100 WBC (Bld) 7.8 % Normal 0-10 [facility] Comment on above: Order Comment: Order Date: 03/15/24 Order Info: 0184-1 - CBCD Performed By: #### L 501.9520, L100.0100, L500.4100, L500.4050, L503.6150, L506.1000, L503.6075, L503.6550 #### [facility] [address] [place], [place], [address] (070) Neutrophils/100 WBC (Bld) 70.3 % High 47-70 [facility] Comment on above: Order Comment: Order Date: 03/15/24 Order Info: 0184- - CBCD Performed By: #### L 501.9520, L100.0100, L500.4100, L500.4050, L503.6150, L506.1000, L503.6075, L503.6550 #### [facility] [address] [facility] [place], [place], [phone] Nucleated RBC (Bld) [#/Vol] 0 10*3/uL Normal 0-5 [facility] Comment on above: Order Comment: Order Date: 03/15/24 Order Info: 0184-1 - CBCD Performed By: #### L 501.9520, L100.0100, L500.4100, L500.4050, L503.6150, L506.1000, L503.6075, L503.6550 #### [facility] [address] [place], [place], [address] Platelet mean volume (Bld) [Entitic vol] 9.5 fL Normal 6.2-12.0 [facility] Comment on above: Order Comment: Order Date: 03/15/24 Order Info: 0184-1 - CBCD Performed By: #### L 501.9520, L100.0100, L500.4100, L500.4050, L503.6150, L506.1000, L503.6075, L503.6550 #### [facility] [address] [place], [address] Platelets (Bld) [#/Vol] 248 10*3/uL Normal 150-450 [facility] Comment on above: Order Comment: Order Date: 03/15/24 Order Info: 0184-1 - CBCD Performed By: #### L 501.9520, L100.0100, L500.4100, L500.4050, L503.6150, L506.1000, L503.6075, L503.6550 #### [facility] [address] [place], [address] RBC (Bld) [#/Vol] 4.78 10*6/uL Normal 4.2-5.4 [facility] Comment on above: Order Comment: Order Date: 03/15/24 Order Info: 0184-1 - CBCD Performed By: #### L 501.9520, L100.0100, L500.4100, L500.4050, L503.6150, L506.1000, L503.6075, L503.6550 #### [facility] [address] [place], [address] RDW SD 45.9 fl High 35.1-43.9 [facility] Comment on above: Order Comment: Order Date: 03/15/24 Order Info: 0184-1 - CBCD Performed By: #### L 501.9520, L100.0100, L500.4100, L500.4050, L503.6150, L506.1000, L503.6075, L503.6550 #### [facility] [address] [place], [address] WBC (Bld) [#/Vol] 8.2 10*3/uL Normal 4.4-11.0 [facility] Comment on above: Order Comment: Order Date: 03/15/24 Order Info: 0184-1 - CBCD Performed By: #### L 501.9520, L100.0100, L500.4100, L500.4050, L503.6150, L506.1000, L503.6075, L503.6550 #### [facility] [address] [place], [place], [id number] Comprehensive Metabolic Prof ilon 05-03-2024 Albumin [Mass/Vol] 3.7 g/dL Normal 3.2-5.0 [facility] Comment on above: Order Comment: Order Date: 03/15/24 Order Info: 785-04 - CMP Order Info: - LIPID Order Info: 3015-06 - TSH Order Info: 2499-10 - TIBC Order Info: 2497-07 Order Info: 2275-07 - DEVON Performed By: #### L 501.9520, L100.0100, L500.4100, L500.4050, L503.6150, L506.1000, L503.6075, L503.6550 #### [facility] [address] [place], [place], [id number] Albumin/Globulin [Mass ratio] 1.1 {ratio} Normal 0.9-2.4 [facility] Comment on above: Order Comment: Order Date: 03/15/24 Order Info: 785-04 - CMP Order Info: - LIPID Order Info: 3015-06 - TSH Order Info: 2499-10 - TIBC Order Info: 2497-07 FE Order Info: 2275-07 - DEVON Performed By: #### L 501.9520, L100.0100, L500.4100, L500.4050, L503.6150, L506.1000, L503.6075, L503.6550 #### [facility] [address] [place], [place], [id number] ALK P 56 U/L Normal 45-117 [facility] Comment on above: Order Comment: Order Date: 03/15/24 Order Info: 785-04 - CMP Order Info: - LIPID Order Info: 3015-06 - TSH Order Info: 2499-10 - TIBC Order Info: 2497-07 Order Info: 2275-07 - DEVON Performed By: #### L 501.9520, L100.0100, L500.4100, L500.4050, L503.6150, L506.1000, L503.6075, L503.6550 #### [facility] [address] [place], [address] ALT [Catalytic activity/Vol] 22 U/L Normal 13-56 [facility] Comment on above: Order Comment: Order Date: 03/15/24 Order Info: 785-1 - CMP Order Info: 50271-1 - LIPID Order Info: 3015-06 - TSH Order Info: 2499-10 TIBC Order Info: 2497-07 Order Info: 2275-07 - DEVON Performed By: #### L 501.9520, L100.0100, L500.4100, L500.4050, L503.6150, L506.1000, L503.6075, L503.6550 #### [facility] [address] [place], [address] AST [Catalytic activity/Vol] 16 U/L Normal 15-37 [facility] Comment on above: Order Comment: Order Date: 03/15/24 Order Info: 07-1 - CMP Order Info: 74216-7 - LIPID Order Info: 3 - TSH Order Info: 2499-10 TIBC Order Info: 2497-07 FE Order Info: 2275-07 - DEVON Performed By: #### L 501.9520, L100.0100, L500.4100, L500.4050, L503.6150, L506.1000, L503.6075, L503.6550 #### [facility] [address] [place], [address] Bilirubin [Mass/Vol] 0.40 mg/dL Normal 0.20-1.00 [facility] Comment on above: Order Comment: Order Date: 03/15/24 Order Info: 0786-1 - CMP Order Info: 82733-3 - LIPID Order Info: 3015-06 - TSH Order Info: 2499-10 - TIBC Order Info: 2497-07 - FE Order Info: 2275-07 - DEVON Result Comment: For patients on eltrombopag therapy, use of Dimension [place] TBIL is not recommended. Performed By: #### L 501.9520, L100.0100, L500.4100, L500.4050, L503.6150, L506.1000, L503.6075, L503.6550 #### [facility] [address] [place], [address] BUN/CRE 16.6 RATIO Normal 10-20 [facility] Comment on above: Order Comment: Order Date: 03/15/24 Order Info: 785-04 - CMP Order Info: - LIPID Order Info: 3015-06 - TSH Order Info: 2499-10 TIBC Order Info: 2497-07 - FE Order Info: 2275-07 - DEVON Performed By: #### L 501.9520, L100.0100, L500.4100, L500.4050, L503.6150, L506.1000, L503.6075, L503.6550 #### [facility] [address] [place], [address] CA,Total 9.3 mg/dL Normal 8.5-10.1 [facility] Comment on above: Order Comment: Order Date: 03/15/24 Order Info: 07 - CMP Order Info: - LIPID Order Info: 3015-06 - TSH Order Info: 2499-10 - TIBC Order Info: 2497-07 - FE Order Info: 2275-07 - DEVON Performed By: #### L 501.9520, L100.0100, L500.4100, L500.4050, L503.6150, L506.1000, L503.6075, L503.6550 #### [facility] [address] [place], [address] Chloride [Moles/Vol] 110 mmol/L High 98-107 [facility] Comment on above: Order Comment: Order Date: 03/15/24 Order Info: 785-04 - CMP Order Info: - LIPID Order Info: 3015-06 - TSH Order Info: 2499-10 - TIBC Order Info: 2497-07 FE Order Info: 2275-07 - DEVON Performed By: #### L 501.9520, L100.0100, L500.4100, L500.4050, L503.6150, L506.1000, L503.6075, L503.6550 #### [facility] [address] [place], [place], [id number] CO2 [Moles/Vol] 25.0 mmol/L Normal 21.0-32.0 [facility] Comment on above: Order Comment: Order Date: 03/15/24 Order Info: 785-04 - CMP Order Info: - LIPID Order Info: 3015-06 - TSH Order Info: 2499-10 TIBC Order Info: 2497-07 FE Order Info: 2275-07 - DEVON Performed By: #### L 501.9520, L100.0100, L500.4100, L500.4050, L503.6150, L506.1000, L503.6075, L503.6550 #### [facility] [address] [place], [place], [address] Creatinine [Mass/Vol] 0.78 mg/dL Normal 0.55-1.02 [facility] Comment on above: Order Comment: Order Date: 03/15/24 Order Info: 785-04 - CMP Order Info: - LIPID Order Info: 3015-06 - TSH Order Info: 2499-10 - TIBC Order Info: 2497-07 FE Order Info: 2275-07 - DEVON Result Comment: The validity of the calculated GFR GFRAA in patients over 70 years has not been determined. Clinical correlation is essential. Performed By: #### L 501.9520, L100.0100, L500.4100, L500.4050, L503.6150, L506.1000, L503.6075, L503.6550 #### [facility] [address] [place], [place], [id number] EST GFR - AA 95 mL/min Normal >60 [facility] Comment on above: Order Comment: Order Date: 03/15/24 Order Info: 07 - CMP Order Info: - LIPID Order Info: 3015-06 - TSH Order Info: 2499-10 - TIBC Order Info: 2497-07 - FE Order Info: 2275-07 - DEVON Result Comment: Afri can [place] GFR Calc Performed By: #### L 501.9520, L100.0100, L500.4100, L500.4050, L503.6150, L506.1000, L503.6075, L503.6550 #### [facility] [address] [place], [place], [phone] GAP 6 Normal 5-15 [facility] Comment on above: Order Comment: Order Date: 03/15/24 Order Info: 785-04 - CMP Order Info: - LIPID Order Info: 3015-06 - TSH Order Info: 2499-10 - TIBC Order Info: 2497-07 FE Order Info: 2275-07 - DEVON Performed By: #### L 501.9520, L100.0100, L500.4100, L500.4050, L503.6150, L506.1000, L503.6075, L503.6550 #### [facility] [address] [place], [place], [phone] (650) GFR/1.73 sq M.predicted among non-blacks MDRD (S/P/Bld) [Vol rate/Area] 79 mL/min/{1.73_m2} Normal >60 [facility] Comment on above: Order Comment: Order Date: 03/15/24 Order Info: 07 - CMP Order Info: 72761-6 - LIPID Order Info: 3015-06 - TSH Order Info: 2499-10 - TIBC Order Info: 2497-07 - FE Order Info: 2276-4 - DEVON Result Comment: Non- GFR Calc Performed By: #### L 501.9520, L100.0100, L500.4100, L500.4050, L503.6150, L506.1000, L503.6075, L503.6550 #### [facility] [address] [place], [address] Globulin (S) [Mass/Vol] 3.4 g/dL Normal 2.2-4.2 [facility] Comment on above: Order Comment: Order Date: 03/15/24 Order Info: 07- - CMP Order Info: - LIPID Order Info: 3015-06 - TSH Order Info: 2499-10 - TIBC Order Info: 2497-07 - FE Order Info: 2275-07 - DEVON Performed By: #### L 501.9520, L100.0100, L500.4100, L500.4050, L503.6150, L506.1000, L503.6075, L503.6550 #### [facility] [address] [place], [address] Glucose [Mass/Vol] 90 mg/dL Normal 74-106 [facility] Comment on above: Order Comment: Order Date: 03/15/24 Order Info: 07 - CMP Order Info: 61293-0 - LIPID Order Info: 3015-06 - TSH Order Info: 2499-10 - TIBC Order Info: 2497-07 - FE Order Info: 2275-07 - DEVON Performed By: #### L 501.9520, L100.0100, L500.4100, L500.4050, L503.6150, L506.1000, L503.6075, L503.6550 #### [facility] [address] [place], [address] Potassium [Moles/Vol] 3.3 mmol/L Low 3.5-5.1 [facility] Comment on above: Order Comment: Order Date: 03/15/24 Order Info: 07- - CMP Order Info: 01501-2 - LIPID Order Info: 3015-06 - TSH Order Info: 2499-10 TIBC Order Info: 2497-07 - FE Order Info: 2275-07 - DEVON Performed By: #### L 501.9520, L100.0100, L500.4100, L500.4050, L503.6150, L506.1000, L503.6075, L503.6550 #### [facility] [address] [place], [address] Sodium [Moles/Vol] 141 mmol/L Normal 136-145 [facility] Comment on above: Order Comment: Order Date: 03/15/24 Order Info: 07 - CMP Order Info: - LIPID Order Info: 3015-06 - TSH Order Info: 2499-10 TIBC Order Info: 2497-07 - FE Order Info: 2275-07 - DEVON Performed By: #### L 501.9520, L100.0100, L500.4100, L500.4050, L503.6150, L506.1000, L503.6075, L503.6550 #### [facility] [address] [place], [address] T PROT 7.1 g/dL Normal 6.4-8.2 [facility] Comment on above: Order Comment: Order Date: 03/15/24 Order Info: 0786- - CMP Order Info: - LIPID Order Info: 3015-06 - TSH Order Info: 2499-10 - TIBC Order Info: 2497-07 - FE Order Info: 2275-07 - DEVON Performed By: #### L 501.9520, L100.0100, L500.4100, L500.4050, L503.6150, L506.1000, L503.6075, L503.6550 #### [facility] [address] [place], [address] Urea nitrogen [Mass/Vol] 13 mg/dL Normal 7-18 [facility] Comment on above: Order Comment: Order Date: 03/15/24 Order Info: 785-04 - CMP Order Info: - LIPID Order Info: 3 - TSH Order Info: 2499-10 - TIBC Order Info: 2497-07 - FE Order Info: 2275-07 - DEVON Performed By: #### L 501.9520, L100.0100, L500.4100, L500.4050, L503.6150, L506.1000, L503.6075, L503.6550 #### [facility] [address] [place], [place], [phone] (610) Ferritinon 05-03-2024 Ferritin [Mass/Vol] 224 ng/mL Normal 8-252 [facility] [facility] Comment on above: Order Comment: Order Date: 03/15/24 Order Info: 785-04 - CMP Order Info: - LIPID Order Info: 3015-06 - TSH Order Info: 2499-10 - TIBC Order Info: 2497-07 - FE Order Info: 2275-07 - DEVON Performed By: #### L 501.9520, L100.0100, L500.4100, L500.4050, L503.6150, L506.1000, L503.6075, L503.6550 #### [facility] [address] [place], [place], [id number] (140) Ironon 05-03-2024 Iron [Mass/Vol] 54 ug/dL Normal 50-170 [facility] Comment on above: Order Comment: Order Date: 03/15/24 Order Info: 785-04 - CMP Order Info: - LIPID Order Info: 3015-06 - TSH Order Info: 2499-10 - TIBC Order Info: 24984 - FE Order Info: 2275-07 - DEVON Performed By: #### L 501.9520, L100.0100, L500.4100, L500.4050, L503.6150, L506.1000, L503.6075, L503.6550 #### [facility] [address] [place], [address] Iron Binding Capacity,Totalo n 05-03-2024 TIBC 313 ug/dL Normal 250-450 [facility] Comment on above: Order Comment: Order Date: 03/15/24 Order Info: 785-04 - CMP Order Info: - LIPID Order Info: 3015-06 - TSH Order Info: 2499-10 - TIBC Order Info: 2497-07 - FE Order Info: 2275-07 - DEVON Performed By: #### L 501.9520, L100.0100, L500.4100, L500.4050, L503.6150, L506.1000, L503.6075, L503.6550 #### [facility] [address] [place], [address] Lipid Profileon 05-03-2024 Cholesterol [Mass/Vol] 209 mg/dL High 200 [facility] Comment on above: Order Comment: Order Date: 03/15/24 Order Info: 785-04 - CMP Order Info: - LIPID Order Info: 3015-06 - TSH Order Info: 2499-10 - TIBC Order Info: 2497-07 - FE Order Info: 2275-07 - DEVON Result Comment: <200 mg/dL Desirable 200-240 mg/dL Borderline >240 mg/dL High Risk Performed By: #### L 501.9520, L100.0100, L500.4100, L500.4050, L503.6150, L506.1000, L503.6075, L503.6550 #### [facility] [address] [place], [address] Cholesterol in HDL [Mass/Vol] 40 mg/dL Normal [facility] Comment on above: Order Comment: Order Date: 03/15/24 Order Info: 785-04 - CMP Order Info: - LIPID Order Info: 3015-06 - TSH Order Info: 2499-10 - TIBC Order Info: 2497-07 - FE Order Info: 2275-07 - DEVON Result Comment: The drugs N-Acetylcysteine and Metamizole may falsely depress this assay. Reference Range HDL <40 mg/dL Low HDL Cholesterol HDL >or= 60 mg/dL High HDL Cholesterol Performed By: #### L 501.9520, L100.0100, L500.4100, L500.4050, L503.6150, L506.1000, L503.6075, L503.6550 #### [facility] [address] [place], [address] Cholesterol in LDL [Mass/Vol] 117 mg/dL Normal 0-130 [facility] Comment on above: Order Comment: Order Date: 03/15/24 Order Info: 785-04 - CMP Order Info: - LIPID Order Info: 3015-06 - TSH Order Info: 2499-10 TIBC Order Info: 2497-07 Order Info: 2275-07 - DEVON Performed By: #### L 501.9520, L100.0100, L500.4100, L500.4050, L503.6150, L506.1000, L503.6075, L503.6550 #### [facility] [address] [place], [address] Cholesterol in VLDL [Mass/Vol] 52 mg/dL High 5-40 [facility] Comment on above: Order Comment: Order Date: 03/15/24 Order Info: 785-04 - CMP Order Info: - LIPID Order Info: 3015-06 - TSH Order Info: 2499-10 TIBC Order Info: 2497-07 Order Info: 2275-07 - DEVON Performed By: #### L 501.9520, L100.0100, L500.4100, L500.4050, L503.6150, L506.1000, L503.6075, L503.6550 #### [facility] [address] [place], [address] Triglyceride [Mass/Vol] 258 mg/dL High [facility] Comment on above: Order Comment: Order Date: 03/15/24 Order Info: 785- - CMP Order Info: - LIPID Order Info: 3016-3 - TSH Order Info: 2499-10 - TIBC Order Info: 2497-07 - FE Order Info: 2275-07 - DEVON Result Comment: The drugs N-Acetylcysteine and Metamizole may falsely depress this assay. Serum Triglycerides Reference Interval Normal <150 mg/dL Borderline high 150 - 199 mg/dL High 200 - 499 mg/dL Very High > or = 500 mg/dL Performed By: #### L 501.9520, L100.0100, L500.4100, L500.4050, L503.6150, L506.1000, L503.6075, L503.6550 #### [facility] [address] [place], [place], [id number] Thyroid Stim Hormone (TSH)on 05-03-2024 TSH 0.277 uIU/mL Low 0.358-3.740 [facility] Comment on above: Order Comment: Order Date: 03/15/24 Order Info: 0786-1 - CMP Order Info: 00202-3 - LIPID Order Info: 3016-3 - TSH Order Info: 2499-10 - TIBC Order Info: 24911-07 - FE Order Info: 2275-07 - DEVON Performed By: #### L 501.9520, L100.0100, L500.4100, L500.4050, L503.6150, L506.1000, L503.6075, L503.6550 #### [facility] [address] [place], [address] Urinalysis, Completeon 05-03 BACTERIA 1+ /hpf Normal None Seen [facility] Comment on above: Order Comment: CLEAN CATCH Performed By: #### L 3300.6900, L3400.4700, L3300.6820 #### [facility] [address] [place], [address] EPI,SQUAMOUS 0-5 SEEN Normal 5-10 [facility] Comment on above: Order Comment: CLEAN CATCH Performed By: #### L 3300.6900, L3400.4700, L3300.6820 #### [facility] [address] [place], [address] Mucus Ql (Urine sed) 1+ /hpf Normal [facility] Comment on above: Order Comment: CLEAN CATCH Performed By: #### L 3300.6900, L3400.4700, L3300.6820 #### [facility] [address] [place], [address] RBC 25-50 SEEN Normal 0-5 [facility] Comment on above: Order Comment: CLEAN CATCH Performed By: #### L 3300.6900, L3400.4700, L3300.6820 #### [facility] [address] [place], [address] WBC 10-25 SEEN Normal 0-[address] [place] [address] Comment on above: Order Comment: CLEAN CATCH Performed By: #### L 3300.6900, L3400.4700, L3300.6820 #### [facility] [address] [place], [address] CA OX CRYSTAL 1+ /hpf Normal [facility] Comment on above: Order Comment: CLEAN CATCH Performed By: #### L 3300.6900, L3400.4700, L3300.6820 #### [facility] [address] [place], [address] Vitamin D,25 Hydroxyon 05-03 Vitamin D 25-OH 62.1 ng/mL Normal [facility] Comment on above: Order Comment: Order Date: 03/15/24Order Info: 65853-4 - VITD25 Result Comment: Lise min D 25(OH) Status Range Deficiency <20 ng/mL (50nmol/L) Insufficiency 20 - 30 ng/mL (50 - 75 nmol/L) Sufficiency 30 - 100 ng/mL (75 - 250 nmol/L) Toxicity >100 ng/mL (>250 nmol/L) Performed By: #### L 3300.6900, L3400.4700, L3300.6820 #### [facility] [address] [place], [address] CBC W/Diff, Automatedon 08-2 0-4 Absolute Lymph 2.05 X10 3/uL Normal 0.83-4.51 [facility] Comment on above: Order Comment: Order Date: 11/24/23Order Info: 183- - CBCD Performed By: #### L 3300.6900, L3400.4700, L3300.6820 #### [facility] [address] [place], [address] Absolute Neut 5.4 X10 3/uL Normal 2.0-7.7 [facility] Comment on above: Order Comment: Order Date: 11/24/23Order Info: 183- - CBCD Performed By: #### L 3300.6900, L3400.4700, L3300.6820 #### [facility] [address] [place], [address] Basophils/100 WBC (Bld) 0.8 % Normal 0-1 [facility] Comment on above: Order Comment: Order Date: 11/24/23Order Info: 183- - CBCD Performed By: #### L 3300.6900, L3400.4700, L3300.6820 #### [facility] [address] [place], [address] Eosinophils/100 WBC (Bld) 2.8 % Normal 0-5 [facility] Comment on above: Order Comment: Order Date: 11/24/23Order Info: 018- - CBCD Performed By: #### L 3300.6900, L3400.4700, L3300.6820 #### [facility] [address] [place], [address] Erythrocyte distribution width (RBC) [Ratio] 13.6 % Normal 11.6-14.6 [facility] Comment on above: Order Comment: Order Date: 11/24/23Order Info: 183- - CBCD Performed By: #### L 3300.6900, L3400.4700, L3300.6820 #### [facility] [address] [place], [address] Hematocrit (Bld) [Volume fraction] 48.7 % High 37-47 [facility] Comment on above: Order Comment: Order Date: 11/24/23Order Info: 0184-1 - CBCD Performed By: #### L 3300.6900, L3400.4700, L3300.6820 #### [facility] [address] [place], [address] Hemoglobin (Bld) [Mass/Vol] 15.9 g/dL High 12.0-15.0 [facility] Comment on above: Order Comment: Order Date: 11/24/23Order Info: 018- - CBCD Performed By: #### L 3300.6900, L3400.4700, L3300.6820 #### [facility] [address] [place], [address] IG% 0.500 Normal 0.0-0.9 [facility] Comment on above: Order Comment: Order Date: 11/24/23Order Info: 018- - CBCD Result Comment: IG% - Immature Granulocytes (promyelocytes, myelocytes and metamyelocytes) > 1% indicates that a LEFT SHIFT is Present. Performed By: #### L 3300.6900, L3400.4700, L3300.6820 #### [facility] [address] [place], [address] Lymphocytes/100 WBC (Bld) 23.9 % Normal 19-41 [facility] Comment on above: Order Comment: Order Date: 11/24/23Order Info: 018-1 - CBCD Performed By: #### L 3300.6900, L3400.4700, L3300.6820 #### [facility] [address] [place], [address] MCH (RBC) [Entitic mass] 30.5 pg Normal 27.0-32.0 [facility] Comment on above: Order Comment: Order Date: 11/24/23Order Info: 018- - CBCD Performed By: #### L 3300.6900, L3400.4700, L3300.6820 #### [facility] [address] [place], [address] MCHC (RBC) [Mass/Vol] 32.6 g/dL Normal 32-36 [facility] Comment on above: Order Comment: Order Date: 11/24/23Order Info: 183- - CBCD Performed By: #### L 3300.6900, L3400.4700, L3300.6820 #### [facility] [address] [place], [address] MCV (RBC) [Entitic vol] 93.3 fL Normal 81-99 [facility] Comment on above: Order Comment: Order Date: 11/24/23Order Info: 183- - CBCD Performed By: #### L 3300.6900, L3400.4700, L3300.6820 #### [facility] [address] [place], [address] Monocytes/100 WBC (Bld) 8.6 % Normal 0-10 [facility] Comment on above: Order Comment: Order Date: 11/24/23Order Info: 018- - CBCD Performed By: #### L 3300.6900, L3400.4700, L3300.6820 #### [facility] [address] [place], [address] Neutrophils/100 WBC (Bld) 63.4 % Normal 47-70 [facility] Comment on above: Order Comment: Order Date: 11/24/23Order Info: 018- - CBCD Performed By: #### L 3300.6900, L3400.4700, L3300.6820 #### [facility] [address] [place], [address] Nucleated RBC (Bld) [#/Vol] 0 10*3/uL Normal 0-5 [facility] Comment on above: Order Comment: Order Date: 11/24/23Order Info: 018-1 - CBCD Performed By: #### L 3300.6900, L3400.4700, L3300.6820 #### [facility] [address] [place], [address] Platelet mean volume (Bld) [Entitic vol] 9.2 fL Normal 6.2-12.0 [facility] Comment on above: Order Comment: Order Date: 11/24/23Order Info: 018- - CBCD Performed By: #### L 3300.6900, L3400.4700, L3300.6820 #### [facility] [address] [place], [address] Platelets (Bld) [#/Vol] 257 10*3/uL Normal 150-450 [facility] Comment on above: Order Comment: Order Date: 11/24/23Order Info: 018- - CBCD Performed By: #### L 3300.6900, L3400.4700, L3300.6820 #### [facility] [address] [place], [address] RBC (Bld) [#/Vol] 5.22 10*6/uL Normal 4.2-5.4 [facility] Comment on above: Order Comment: Order Date: 11/24/23Order Info: 018- - CBCD Performed By: #### L 3300.6900, L3400.4700, L3300.6820 #### [facility] [address] [place], [address] RDW SD 47.2 fl High 35.1-43.9 [facility] Comment on above: Order Comment: Order Date: 11/24/23Order Info: 0184-1 - CBCD Performed By: #### L 3300.6900, L3400.4700, L3300.6820 #### [facility] [address] [place], [address] WBC (Bld) [#/Vol] 8.6 10*3/uL Normal 4.4-11.0 [facility] Comment on above: Order Comment: Order Date: 11/24/23Order Info: 0184-1 - CBCD Performed By: #### L 3300.6900, L3400.4700, L3300.6820 #### [facility] [address] [place], [address] Comprehensive Metabolic Prof ilon 11-24-2023 Albumin [Mass/Vol] 3.8 g/dL Normal 3.2-5.0 [facility] Comment on above: Order Comment: Order Date: 11/24/23Order Info: 0786-1 - CMPOrder Info: [id number] - LIPIDOrder Info: 32643-0 - MGOrder Info: 3016-3 - TSHOrder Info: 2500-7 - TIBCOrder Info: 2498-4 - FEOrder Info: 2275-4 - DEVON Performed By: #### L 3300.6900, L3400.4700, L3300.6820 #### [facility] [address] [place], [address] Albumin/Globulin [Mass ratio] 1.1 {ratio} Normal 0.9-2.4 [facility] Comment on above: Order Comment: Order Date: 11/24/23Order Info: 0786-1 - CMPOrder Info: [id number] - LIPIDOrder Info: [id number] - MGOrder Info: 3016-3 - TSHOrder Info: 2500-7 - TIBCOrder Info: 2498-4 - FEOrder Info: 2276-4 - DEVON Performed By: #### L 3300.6900, L3400.4700, L3300.6820 #### [facility] [address] [place], [address] ALK P 59 U/L Normal 45-117 [facility] Comment on above: Order Comment: Order Date: 11/24/23Order Info: 0786-1 - CMPOrder Info: [id number] - LIPIDOrder Info: [id number] - MGOrder Info: 3016-3 - TSHOrder Info: 2500-7 - TIBCOrder Info: 2498-4 - FEOrder Info: 2276-4 - DEVON Performed By: #### L 3300.6900, L3400.4700, L3300.6820 #### [facility] [address] [place], [address] ALT [Catalytic activity/Vol] 20 U/L Normal 13-56 [facility] Comment on above: Order Comment: Order Date: 11/24/23Order Info: 0786-1 - CMPOrder Info: 67775-0 - LIPIDOrder Info: [id number] - MGOrder Info: 3016-3 - TSHOrder Info: 2500-7 - TIBCOrder Info: 2498-4 - FEOrder Info: 2275-4 - DEVON Performed By: #### L 3300.6900, L3400.4700, L3300.6820 #### [facility] [address] [place], [address] AST [Catalytic activity/Vol] 20 U/L Normal 15-37 [facility] Comment on above: Order Comment: Order Date: 11/24/23Order Info: 0786-1 - CMPOrder Info: [id number] - LIPIDOrder Info: [id number] - MGOrder Info: 3015-3 - TSHOrder Info: 2500-7 - TIBCOrder Info: 2498-4 - FEOrder Info: 2276-4 - DEVON Performed By: #### L 3300.6900, L3400.4700, L3300.6820 #### [facility] [address] [place], [address] Bilirubin [Mass/Vol] 0.20 mg/dL Normal 0.20-1.00 [facility] Comment on above: Order Comment: Order Date: 11/24/23Order Info: 0786-1 - CMPOrder Info: 17004-9 - LIPIDOrder Info: [id number] - MGOrder Info: 3015-3 - TSHOrder Info: 7 - TIBCOrder Info: 24911-07 - FEOrder Info: 2275- - DEVON Result Comment: For patients on eltrombopag therapy, use of Dimension [place] TBIL is not recommended. Performed By: #### L 3300.6900, L3400.4700, L3300.6820 #### [facility] [address] [place], [address] BUN/CRE 17.8 RATIO Normal 10-20 [facility] Comment on above: Order Comment: Order Date: 11/24/23Order Info: 86-1 - CMPOrder Info: 33282-2 - LIPIDOrder Info: 06774-9 - MGOrder Info: 3 - TSHOrder Info: 2499-10 - TIBCOrder Info: 2494 - FEOrder Info: 2275-07 - DEVON Performed By: #### L 3300.6900, L3400.4700, L3300.6820 #### [facility] [address] [place], [address] CA,Total 9.4 mg/dL Normal 8.5-10.1 [facility] Comment on above: Order Comment: Order Date: 11/24/23Order Info: 86-1 - CMPOrder Info: [id number] - LIPIDOrder Info: [id number] - MGOrder Info: 3015-3 - TSHOrder Info: 2499-10 - TIBCOrder Info: 24911-07 - FEOrder Info: 2275-07 - DEVON Performed By: #### L 3300.6900, L3400.4700, L3300.6820 #### [facility] [address] [place], [address] Chloride [Moles/Vol] 105 mmol/L Normal 98-107 [facility] Comment on above: Order Comment: Order Date: 11/24/23Order Info: 86-1 - CMPOrder Info: 06162-0 - LIPIDOrder Info: [id number] - MGOrder Info: 3015-3 - TSHOrder Info: 2500-7 - TIBCOrder Info: 2498-4 - FEOrder Info: 2275-07 - DEVON Performed By: #### L 3300.6900, L3400.4700, L3300.6820 #### [facility] [address] [place], [address] CO2 [Moles/Vol] 29.0 mmol/L Normal 21.0-32.0 [facility] Comment on above: Order Comment: Order Date: 11/24/23Order Info: 0786-1 - CMPOrder Info: [id number] - LIPIDOrder Info: [id number] - MGOrder Info: 3016-3 - TSHOrder Info: 7 - TIBCOrder Info: 24911-07 - FEOrder Info: 2275-07 - DEVON Performed By: #### L 3300.6900, L3400.4700, L3300.6820 #### [facility] [address] [place], [address] Creatinine [Mass/Vol] 0.84 mg/dL Normal 0.55-1.02 [facility] Comment on above: Order Comment: Order Date: 11/24/23Order Info: 0786-1 - CMPOrder Info: 01411-2 - LIPIDOrder Info: [id number] - MGOrder Info: 6-3 - TSHOrder Info: 25007 - TIBCOrder Info: 2494 - FEOrder Info: 2275-07 - DEVON Result Comment: The validity of the calculated GFR GFRAA in patients over 70 years has not been determined. Clinical correlation is essential. Performed By: #### L 3300.6900, L3400.4700, L3300.6820 #### [facility] [address] [place], [address] EST GFR - AA 88 mL/min Normal >60 [facility] Comment on above: Order Comment: Order Date: 11/24/23Order Info: 0786-1 - CMPOrder Info: [id number] - LIPIDOrder Info: [id number] - MGOrder Info: 3016-3 - TSHOrder Info: 2500-7 - TIBCOrder Info: 2498-4 - FEOrder Info: 2275-4 - DEVON Result Comment: Afri can [place] GFR Calc Performed By: #### L 3300.6900, L3400.4700, L3300.6820 #### [facility] [address] [place], [address] GAP 4 Low 5-15 [facility] Comment on above: Order Comment: Order Date: 11/24/23Order Info: 0786-1 - CMPOrder Info: [id number] - LIPIDOrder Info: 39909-1 - MGOrder Info: 3016-3 - TSHOrder Info: 25007 - TIBCOrder Info: 24911-07 - FEOrder Info: 4 - DEVON Performed By: #### L 3300.6900, L3400.4700, L3300.6820 #### [facility] [address] [place], [address] GFR/1.73 sq M.predicted among non-blacks MDRD (S/P/Bld) [Vol rate/Area] 72 mL/min/{1.73_m2} Normal >60 [facility] Comment on above: Order Comment: Order Date: 11/24/23Order Info: 0786-1 - CMPOrder Info: 72261-2 - LIPIDOrder Info: [id number] - MGOrder Info: 3016-3 - TSHOrder Info: 25007 - TIBCOrder Info: 2497-07 - FEOrder Info: 4 - DEVON Result Comment: Non- GFR Calc Performed By: #### L 3300.6900, L3400.4700, L3300.6820 #### [facility] [address] [place], [address] Globulin (S) [Mass/Vol] 3.6 g/dL Normal 2.2-4.2 [facility] Comment on above: Order Comment: Order Date: 11/24/23Order Info: 0786-1 - CMPOrder Info: [id number] - LIPIDOrder Info: [id number] - MGOrder Info: 3016-3 - TSHOrder Info: 2499-10 - TIBCOrder Info: 2497-07 - FEOrder Info: 2275-07 - DEVON Performed By: #### L 3300.6900, L3400.4700, L3300.6820 #### [facility] [address] [place], [address] Glucose [Mass/Vol] 108 mg/dL High 74-106 [facility] Comment on above: Order Comment: Order Date: 11/24/23Order Info: 86-1 - CMPOrder Info: [id number] - LIPIDOrder Info: 38437-0 - MGOrder Info: 3015-06 - TSHOrder Info: 2499-10 - TIBCOrder Info: 2497-07 - FEOrder Info: 2275-07 - DEVON Result Comment: Fast ing Glucose result from 100 to 125 mg/dL suggests IMPAIRED HOMEOSTASIS per A.D.A. criteria. Performed By: #### L 3300.6900, L3400.4700, L3300.6820 #### [facility] [address] [place], [address] Potassium [Moles/Vol] 3.3 mmol/L Low 3.5-5.1 [facility] Comment on above: Order Comment: Order Date: 11/24/23Order Info: 785-1 - CMPOrder Info: [id number] - LIPIDOrder Info: [id number] - MGOrder Info: 3015-06 - TSHOrder Info: 2499-10 - TIBCOrder Info: 2497-07 - FEOrder Info: 2275-07 - DEVON Performed By: #### L 3300.6900, L3400.4700, L3300.6820 #### [facility] [address] [place], [address] Sodium [Moles/Vol] 138 mmol/L Normal 136-145 [facility] Comment on above: Order Comment: Order Date: 11/24/23Order Info: 785-1 - CMPOrder Info: [id number] - LIPIDOrder Info: [id number] - MGOrder Info: 3016-3 - TSHOrder Info: 2500-7 - TIBCOrder Info: 2498-4 - FEOrder Info: 2276-4 - DEVON Performed By: #### L 3300.6900, L3400.4700, L3300.6820 #### [facility] [address] [place], [address] T PROT 7.4 g/dL Normal 6.4-8.2 [facility] Comment on above: Order Comment: Order Date: 11/24/23Order Info: 86-1 - CMPOrder Info: [id number] - LIPIDOrder Info: 14160-0 - MGOrder Info: 3016-3 - TSHOrder Info: 2500-7 - TIBCOrder Info: 2498-4 - FEOrder Info: 227-4 - DEVON Performed By: #### L 3300.6900, L3400.4700, L3300.6820 #### [facility] [address] [place], [address] Urea nitrogen [Mass/Vol] 15 mg/dL Normal 7-18 [facility] Comment on above: Order Comment: Order Date: 11/24/23Order Info: 86-1 - CMPOrder Info: [id number] - LIPIDOrder Info: 00877-1 - MGOrder Info: 3016-3 - TSHOrder Info: 2500-7 - TIBCOrder Info: 2498-4 - FEOrder Info: 2275-4 - DEVON Performed By: #### L 3300.6900, L3400.4700, L3300.6820 #### [facility] [address] [place], [address] Ferritinon 11-24-2023 Ferritin [Mass/Vol] 208 ng/mL Normal 8-252 [facility] Comment on above: Order Comment: Order Date: 11/24/23Order Info: 0786-1 - CMPOrder Info: [id number] - LIPIDOrder Info: [id number] - MGOrder Info: 3016-3 - TSHOrder Info: 2500-7 - TIBCOrder Info: 2498-4 - FEOrder Info: 2276-4 - DEVON Performed By: #### L 3300.6900, L3400.4700, L3300.6820 #### [facility] [address] [place], [address] Ironon 11-24-2023 Iron [Mass/Vol] 33 ug/dL Low 50-170 [facility] Comment on above: Order Comment: Order Date: 11/24/23Order Info: 0786-1 - CMPOrder Info: [id number] - LIPIDOrder Info: [id number] - MGOrder Info: 3016-3 - TSHOrder Info: 2500-7 - TIBCOrder Info: 2498-4 - FEOrder Info: 2275-4 - DEVON Performed By: #### L 3300.6900, L3400.4700, L3300.6820 #### [facility] [address] [place], [address] Iron Binding Capacity,Totalo n 11-24-2023 TIBC 312 ug/dL Normal 250-450 [facility] Comment on above: Order Comment: Order Date: 11/24/23Order Info: 0786-1 - CMPOrder Info: [id number] - LIPIDOrder Info: [id number] - MGOrder Info: 3016-3 - TSHOrder Info: 2500-7 - TIBCOrder Info: 2498-4 - FEOrder Info: 2275-4 - DEVON Performed By: #### L 3300.6900, L3400.4700, L3300.6820 #### [facility] [address] [place], [address] Lipid Profileon 11-24-2023 Cholesterol [Mass/Vol] 155 mg/dL Normal 200 [facility] Comment on above: Order Comment: Order Date: 11/24/23Order Info: 0786-1 - CMPOrder Info: [id number] - LIPIDOrder Info: [id number] - MGOrder Info: 3016-3 - TSHOrder Info: 2500-7 - TIBCOrder Info: 2498-4 - FEOrder Info: 227-4 - DEVON Result Comment: <200 mg/dL Desirable 200-240 mg/dL Borderline >240 mg/dL High Risk Performed By: #### L 3300.6900, L3400.4700, L3300.6820 #### [facility] [address] [place], [address] Cholesterol in HDL [Mass/Vol] 35 mg/dL Low [facility] Comment on above: Order Comment: Order Date: 11/24/23Order Info: 0786-1 - CMPOrder Info: [id number] - LIPIDOrder Info: [id number] - MGOrder Info: 3016-3 - TSHOrder Info: 2500-7 - TIBCOrder Info: 2497-07 - FEOrder Info: 2275-07 - DEVON Result Comment: The drugs N-Acetylcysteine and Metamizole may falsely depress this assay. Reference Range HDL <40 mg/dL Low HDL Cholesterol HDL >or= 60 mg/dL High HDL Cholesterol Performed By: #### L 3300.6900, L3400.4700, [id number] #### [facility] [address] [place], [address] Cholesterol in LDL [Mass/Vol] 61 mg/dL Normal 0-130 [facility] Comment on above: Order Comment: Order Date: 11/24/23Order Info: [id number] - CMPOrder Info: [id number] - LIPIDOrder Info: [id number] - MGOrder Info: [id number] - TSHOrder Info: [id number] - TIBCOrder Info: [id number] - FEOrder Info: [id number] - DEVON Performed By: #### L 3300.6900, [id number], [id number] #### [facility] [address] [place], [address] Cholesterol in VLDL [Mass/Vol] 59 mg/dL High 5-40 [facility] Comment on above: Order Comment: Order Date: 11/24/23Order Info: [id number] - CMPOrder Info: [id number] - LIPIDOrder Info: [id number] - MGOrder Info: [id number] - TSHOrder Info: [id number] - TIBCOrder Info: [id number] - FEOrder Info: [id number] - DEVON Performed By: #### L 3300.6900, [id number], [id number] #### [facility] [address] [place], [address] Triglyceride [Mass/Vol] 294 mg/dL High [facility] Comment on above: Order Comment: Order Date: 11/24/23Order Info: [id number] - CMPOrder Info: [id number] - LIPIDOrder Info: [id number] - MGOrder Info: [id number] - TSHOrder Info: 7 - TIBCOrder Info: [id number] - FEOrder Info: [id number] - DEVON Result Comment: The drugs N-Acetylcysteine and Metamizole may falsely depress this assay. Serum Triglycerides Reference Interval Normal <150 mg/dL Borderline high 150 - 199 mg/dL High 200 - 499 mg/dL Very High > or = 500 mg/dL Performed By: #### L 3300.6900, [id number], [id number] #### [facility] [address] [place], [address] Magnesiumon 11-24-2023 Magnesium [Mass/Vol] 2.0 mg/dL Normal 1.6-2.6 [facility] Comment on above: Order Comment: Order Date: 11/24/23Order Info: [id number] - CMPOrder Info: [id number] - LIPIDOrder Info: [id number] - MGOrder Info: 3 - TSHOrder Info: [id number] - TIBCOrder Info: [id number] - FEOrder Info: [id number] - DEVON Performed By: #### L 3300.6900, [id number], [id number] #### [facility] [address] [place], [address] Thyroid Stim Hormone (TSH)on 11-24-2023 TSH 0.824 uIU/mL Normal 0.358-3.740 [facility] Comment on above: Order Comment: Order Date: 11/24/23Order Info: [id number] CMPOrder Info: [id number] - LIPIDOrder Info: [id number] - MGOrder Info: [id number] - TSHOrder Info: [id number] - TIBCOrder Info: [id number] - FEOrder Info: [id number] - DEVON Performed By: #### L 3300.6900, [id number], [id number] #### [facility] [address] [place], [address] Urinalysis, Completeon 11-23 CA OX CRYSTAL 1+ /hpf Normal [facility] Comment on above: Order Comment: CLEAN CATCH Performed By: #### L [id number], [id number], [id number] #### [facility] [address] [place], [address] Mucus Ql (Urine sed) 1+ /hpf Normal [facility] Comment on above: Order Comment: CLEAN CATCH Performed By: #### L [id number], [id number], [id number] #### [facility] [address] [place], [address] BACTERIA 1+ /hpf Normal None Seen [facility] Comment on above: Order Comment: CLEAN CATCH Performed By: #### L [id number], [id number], [id number] #### [facility] [address] [place], [address] RBC 0-5 SEEN Normal 0-5 [facility] Comment on above: Order Comment: CLEAN CATCH Performed By: #### L 3300.6900, [id number], [id number] #### [facility] [address] [place], [address] WBC 5-10 SEEN Normal 0-5 [facility] Comment on above: Order Comment: CLEAN CATCH Performed By: #### L [id number], [id number], [id number] #### [facility] [address] [place], [address] EPI,SQUAMOUS 10-25 SEEN Normal 5-10 [facility] Comment on above: Order Comment: CLEAN CATCH Performed By: #### L 3300.6900, [id number], [id number] #### [facility] [address] [place], [address] Vitamin D,25 Hydroxyon 11-23 Vitamin D 25-OH 72.4 ng/mL Normal [facility] Comment on above: Order Comment: Order Date: 11/24/23Order Info: [id number] - [id number] Result Comment: Lise min D 25(OH) Status Range Deficiency <20 ng/mL (50nmol/L) Insufficiency 20 - 30 ng/mL (50 - 75 nmol/L) Sufficiency 30 - 100 ng/mL (75 - 250 nmol/L) Toxicity >100 ng/mL (>250 nmol/L) Performed By: #### L 3300.6900, [id number], [id number] #### [facility] [address] [place], [address] Laboratory - Drug toxicology Ordered By: Patricia Gonzalez on 07-20-2023 Amphetamines Ql (U) Negative <1000 ng/mL [facility] Benzodiazepines Ql (U) Negative < 200 ng/mL [facility] Cannabinoids Screen Ql (U) Negative < 50 ng/mL [facility] Cocaine Ql (U) Negative < 300 ng/mL [facility] Opiates Ql (U) Negative < 300 ng/mL [facility] No Panel InformationOrdered By: Patricia Gonzalez on 07-20-2023 MDMA (Ecstasy) Screen Negative < 500 ng/mL [facility] Miscellaneous Test See comment [facility] Comment on above: TEST RESULTS LIMITSB uprenorphine, Urine Negative ng/mL Cutoff=10 TESTING PERFORMED AT [facility]. ORIGINAL REPORT ON FILE IN LAB CONTAINS ADDITIONAL TEST SITE INFORMATION. Urine Barbiturates Screen Negative < 200 ng/m L [facility] Urine Buprenorphine Screen Negative <10 ng/mL [facility] Urine Drug Screen Comment [facility] Comment on above: *Additional results available. Contact laboratory/see report*CONFIRMATORY TESTING FOR ALL POSITIVE URINE DRUG SCREENRESULTS WILL ONLY BE SENT OUT UPON PHYSICIAN ORDER. The results of Urine Drug Screen methods provide only preliminary analytical test results. A more specific alternate chemical method must be used in order to obtain a confirmed analytical result. Gas chromatography/mass spectrometery (GC/MS) is the preferred confirmatory method. Clinical consideration and professional judgement should be applied to any drug of abuse test result, particularly whenpreliminary positive results are used. Urine Methadone Screen Negative < 300 ng/mL [facility] Urine phencyclidine (PCP) de tectionOrdered By: Patricia Gonzalez on 07-20-2023 Phencyclidine Ql (U) Negative < 25 ng/mL [facility] Absolute lymphocyte countOrd ered By: David Ferreira on 05-05-2023 Lymphocytes Auto (Unsp spec) [#/Vol] 1.65 10*3/uL 0.83-4.51 [facility] Automated lymphocyte count a s percentage of total leukocytesOrdered By: David Ferreira on 05-05-2023 Lymphocytes/100 WBC Auto (Unsp spec) 16.0 % 19-41 [facility] Basophil percentageOrdered B y: David Ferreira on 05-05-2023 Basophil percentage 0 SEEN /hpf 0-5 [facility] Basophils/100 WBC (Bld) 0.9 % 0-1 [facility] Bilirubin [Mass/Vol] 0.40 mg/dL 0.20-1.00 [facility] Comment on above: For patients on eltr ombopag therapy, use of Dimension [place] TBIL is not recommended. Chloride [Moles/Vol] 108 mmol/L 98-107 [facility] Cholesterol [Mass/Vol] 155 mg/dL <200 [facility] Comment on above: <200 mg/dL Desirable 200-240 mg/dL Borderline >240 mg/dL High Risk Eosinophils/100 WBC (Bld) 4.0 % 0-5 [facility] Glucose [Mass/Vol] 87 mg/dL 74-106 [facility] Hemoglobin (Bld) [Mass/Vol] 15.6 g/dL 12.0-15.0 [facility] Monocytes/100 WBC (Bld) 10.4 % 0-10 [facility] Neutrophils (Bld) [#/Vol] 7.0 10*3/uL 2.0-7.7 [facility] Neutrophils/100 WBC (Bld) 68.2 % 47-70 [facility] Potassium [Moles/Vol] 3.6 mmol/L 3.5-5.1 [facility] Protein [Mass/Vol] 7.5 g/dL 6.4-8.2 [facility] Sodium [Moles/Vol] 137 mmol/L 136-145 [facility] Triglyceride [Mass/Vol] 136 mg/dL <199 [facility] Comment on above: The drugs N-Acetylcy steine and Metamizole may falsely depress this assay.Serum Triglycerides Reference Interval Normal <150 mg/dL Borderline high 150 - 199 mg/dL High 200 - 499 mg/dL Very High > or = 500 mg/dL WBC (Bld) [#/Vol] 10.3 10*3/uL 4.4-11.0 [facility] Bilirubin Test strip Ql (U)O rdered By: David Ferreira on 05-05-2023 Bilirubin Ql (U) Negative Negative [facility] Determination of erythrocyte mean corpuscular volume (MCV)Ordered By: David Ferreira on 05-05-2023 MCV (RBC) [Entitic vol] 92.7 fL 81-99 [facility] Erythrocyte distribution wid th ratioOrdered By: David Ferreira on 05-05-2023 Erythrocyte distribution width (RBC) [Ratio] 13.5 % 11.6-14.6 [facility] Erythrocyte distribution wid th standard deviationOrdered By: David Ferreira on 05-05-2023 Erythrocyte distribution width (RBC) [Entitic vol] 46.2 fL 35.1-43.9 [facility] Hematocrit Auto (Bld) [Volum e fraction]Ordered By: David Ferreira on 05-05-2023 Hematocrit (Bld) [Volume fraction] 46.8 % 37-47 [facility] Immature granulocytes/100 WB C Auto (Bld)Ordered By: David Ferreira on 05-05-2023 Immature granulocytes/100 WBC (Bld) 0.500 % 0.0-0.9 [facility] Comment on above: IG% - Immature Granu locytes (promyelocytes, myelocytes and metamyelocytes) > 1% indicates that a LEFT SHIFT is Present. Iron measurement (mass/mass) Ordered By: David Ferreira on 05-05-2023 Iron (Unsp spec) [Mass/Mass] 81 ug/dL 50-170 [facility] Ketones Test strip Ql (U)Ord ered By: David Ferreira on 05-05-2023 Ketones Ql (U) 5 mg/dl Negative [facility] - Chemistry and C hemistry - challengeOrdered By: David Ferreira on 05-05-2023 Albumin/Globulin [Mass ratio] 1.1 {ratio} 0.9-2.4 [facility] ALP [Catalytic activity/Vol] 64 U/L 45-117 [facility] ALT [Catalytic activity/Vol] 30 U/L 13-56 [facility] Cholesterol in HDL (Body fld) [Mass/Vol] 43 mg/dL >40 [facility] Comment on above: The drugs N-Acetylcy steine and Metamizole may falsely depress this assay. Reference Range HDL <40 mg/dL Low HDL Cholesterol HDL >or= 60 mg/dL High HDL Cholesterol Cholesterol in LDL (Body fld) [Moles/Vol] 85 mg/dL 0-130 [facility] Cholesterol in VLDL Calc [Moles/Vol] 27 mg/dL 5-40 [facility] CO2 [Moles/Vol] 24.0 mmol/L 21.0-32.0 [facility] Ferritin [Mass/Vol] 297 ng/mL 8-252 [facility] Globulin (S) [Mass/Vol] 3.6 g/dL 2.2-4.2 [facility] Urea nitrogen/Creatinine [Mass ratio] 21.4 mg/mg 10-20 [facility] - Hematology and Cell countsOrdered By: David Ferreira on 05-05-2023 MCH (RBC) [Entitic mass] 30.9 pg 27.0-32.0 [facility] MCHC (RBC) [Mass/Vol] 33.3 g/dL 32-36 [facility] Nucleated RBC/100 WBC (Bld) [Ratio] 0 % 0-5 [facility] Platelets (Bld) [#/Vol] 264 10*3/uL 150-450 [facility] Mucus LM Ql (Urine sed)Order ed By: David Ferreira on 05-05-2023 Mucus Ql (Urine sed) 0 SEEN /hpf [facility] Nitrite Test strip Ql (U)Ord ered By: David Ferreira on 05-05-2023 Nitrite Ql (U) Negative Negative [facility] No Panel InformationOrdered By: David Ferreira on 05-05-2023 Estimated GFR (MDRD) Amer 83 mL/min >60 [facility] Comment on above: GFR Calc Estimated GFR (MDRD) Non-Af Amer 68 mL/min >60 [facility] Comment on above: Non- GFR Calc Total Iron Binding Capacity 315 ug/dL 250-450 [facility] Urine RBC > 100 SEEN /hpf 0-5 [facility] Vitamin D 25-Hydroxy 68.1 ng/mL [facility] Comment on above: Vitamin D 25(OH) Sta tus Range Deficiency <20 ng/mL (50nmol/L) Insufficiency 20 - 30 ng/mL (50 - 75 nmol/L) Sufficiency 30 - 100 ng/mL (75 - 250 nmol/L) Toxicity >100 ng/mL (>250 nmol/L) Platelet mean volume Darek-Ec ker (Bld) [Entitic vol]Ordered By: David Ferreira on 05-05-2023 Platelet mean volume (Bld) [Entitic vol] 8.9 fL 6.2-12.0 [facility] Protein Test strip Ql (U)Ord ered By: David Ferreira on 05-05-2023 Protein Ql (U) 30 mg/dl Negative [facility] RBC Auto (Bld) [#/Vol]Ordere d By: David Ferreira on 05-05-2023 RBC (Bld) [#/Vol] 5.05 10*6/uL 4.2-5.4 [facility] Serum or plasma calcium faraz urement (mass/volume)Ordered By: David Ferreira on 05-05-2023 Calcium [Mass/Vol] 9.2 mg/dL 8.5-10.1 [facility] Serum or plasma creatinine m easurement (mass/volume)Ordered By: David Ferreira on 05-05-2023 Creatinine [Mass/Vol] 0.89 mg/dL 0.55-1.02 [facility] Comment on above: The validity of the calculated GFR & GFRAA in patients over 70 years has not been determined. Clinical correlation is essential. Serum or plasma urea nitroge n measurement (mass/volume)Ordered By: David Ferreira on 05-05-2023 Urea nitrogen [Mass/Vol] 19 mg/dL 7-18 [facility] Squamous epithelial cells de tection in urine sediment by light microscopyOrdered By: David Ferreira on 05-05-2023 Epithelial cells.squamous LM Ql (Urine sed) 0-5 SEEN /hpf 5-10 [facility] Thin prep Papanicolaou smear with manual screeningOrdered By: David Ferreira on 05-05-2023 Thin prep Papanicolaou smear with manual screening 3.9 g/dL 3.2-5.0 [facility] Thin prep Papanicolaou smear with manual screening 19 U/L 15-37 [facility] Thin prep Papanicolaou smear with manual screening 5 5-15 [facility] Urine blood detectionOrdered By: David Ferreira on 05-05-2023 RBC Ql (U) 250 /ul Negative [facility] Urine clarityOrdered By: Toy Ferreira on 05-05-2023 Clarity (U) Cloudy Clear [facility] Urine color determinationOrd ered By: David Ferreira on 05-05-2023 Color (U) Yellow Yellow [facility] Urine glucose detectionOrder ed By: David Ferreira on 05-05-2023 Glucose Ql (U) Normal mg/dl Normal [facility] Urine leukocyte esterase det ection by dipstickOrdered By: David Ferreira on 05-05-2023 Leukocyte esterase Test strip Ql (U) 25 /ul Negative [facility] Urine pHOrdered By: David del cid on 05-05-2023 pH (U) 6.0 [pH] 5.0 - 8.0 [facility] Urine sediment bacteria coun t by microscopy (number/high power field)Ordered By: David Ferreira on 05-05-2023 Bacteria LM.HPF (Urine sed) [#/Area] 0 /[HPF] None Seen [facility] Urine specific gravity measu rementOrdered By: David Ferreira on 05-05-2023 Specific gravity (U) [Rel density] 1.020 1.002-1.030 [facility] Urine urobilinogen measureme ntOrdered By: David Ferreira on 05-05-2023 Urobilinogen Ql (U) 1 mg/dl Normal [facility] Basophil percentageOrdered B y: Abdoulaye Parsons on 11-15-2022 Basophil percentage 5-10 SEEN /hpf 0-5 [facility] Bilirubin Test strip Ql (U)O rdered By: Abdoulaye Parsons on 11-15-2022 Bilirubin Ql (U) Negative Negative [facility] Ketones Test strip Ql (U)Ord ered By: Abdoulaye Parsons on 11-15-2022 Ketones Ql (U) Negative Negative [facility] Mucus LM Ql (Urine sed)Order ed By: Abdoulaye Parsons on 11-15-2022 Mucus Ql (Urine sed) 0 SEEN /hpf [facility] Nitrite Test strip Ql (U)Ord ered By: Abdoulaye Parsons on 11-15-2022 Nitrite Ql (U) Negative Negative [facility] Protein Test strip Ql (U)Ord ered By: Abdoulaye Parsons on 11-15-2022 Protein Ql (U) 30 mg/dl Negative [facility] Squamous epithelial cells de tection in urine sediment by light microscopyOrdered By: Abdoulaye Parosns on 11-15-2022 Epithelial cells.squamous LM Ql (Urine sed) 0-5 SEEN /hpf 5-10 [facility] Urine blood detectionOrdered By: Abdoulaye Parsons on 11-15-2022 RBC Ql (U) 250 /ul Negative [facility] RBC Ql (U) 5-10 SEEN /hpf 0-5 [facility] Urine clarityOrdered By: Shalini Parsons on 11-15-2022 Clarity (U) Sl. Cloudy Clear [facility] Urine color determinationOrd ered By: Abdoulaye Parsons on 11-15-2022 Color (U) Yellow Yellow [facility] Urine glucose detectionOrder ed By: Abdoulaye Parsons on 11-15-2022 Glucose Ql (U) Normal mg/dl Normal [facility] Urine leukocyte esterase det ection by dipstickOrdered By: Abdoulaye Parsons on 11-15-2022 Leukocyte esterase Test strip Ql (U) 100 /ul Negative [facility] Urine pHOrdered By: Abdoulaye roth on 11-15-2022 pH (U) 6.0 [pH] 5.0 - 8.0 [facility] Urine sediment bacteria coun t by microscopy (number/high power field)Ordered By: Abdoulaye Parsons on 11-15-2022 Bacteria LM.HPF (Urine sed) [#/Area] RARE /hpf None Seen [facility] Urine specific gravity measu rementOrdered By: Abdoulaye Parsons on 11-15-2022 Specific gravity (U) [Rel density] 1.025 1.002-1.030 [facility] Urobilinogen Auto test strip Ql (U)Ordered By: Abdoulaye Parsons on 11-15-2022 Urobilinogen Ql (U) 1 mg/dl Normal [facility] Laboratory - Drug toxicology Ordered By: Dr. Gonzalez on 07-15-2022 Amphetamines Ql (U) Negative <1000 ng/mL [facility] Benzodiazepines Ql (U) Negative < 200 ng/mL [facility] Cannabinoids Screen Ql (U) Negative < 50 ng/mL [facility] Cocaine Ql (U) Negative < 300 ng/mL [facility] Opiates Ql (U) Negative < 300 ng/mL [facility] No Panel InformationOrdered By: Dr. Gonzalez on 07-15-2022 MDMA (Ecstasy) Screen Negative < 500 ng/mL [facility] Miscellaneous Test See comment [facility] Comment on above: [id number] 6+OXYCODONE-B UND (ng/mL) DRUG RESULT SCREEN CUTOFF____ Amphetamines,Urine Negative ng/mL 1000 Amphetamine test includes Amphetamine and Methamphetamine.Barbiturates Negative ng/mL 200Benzodiazepines Negative ng/mL 200Cannabinoid Negative ng/mL 20Cocaine (Metab) Negative ng/mL 300Opiates Negative ng/mL 300 Opiates test includes Codeine, Morphine, Hydromorphone, Hydrocodone. Oxycodone/Oxymorphone,Urine Negative ng/mL 300 Test includes Oxydodone and Oxymorphone. TESTING PERFORMED AT [facility]. ORIGINAL REPORT ON FILE IN LAB CONTAINS ADDITIONAL TEST SITE INFORMATION. Urine Barbiturates Screen Negative < 200 ng/m L [facility] Urine Drug Screen Comment [facility] Comment on above: CONFIRMATORY TESTING FOR ALL POSITIVE URINE DRUG SCREENRESULTS WILL ONLY BE SENT OUT UPON PHYSICIAN ORDER. The results of Urine Drug Screen methods provide only preliminary analytical test results. A more specific alternate chemical method must be used in order to obtain a confirmed analytical result. Gas chromatography/mass spectrometery (GC/MS) is the preferred confirmatory method. Clinical consideration and professional judgement should be applied to any drug of abuse test result, particularly whenpreliminary positive results are used. Urine Methadone Screen Negative < 300 ng/mL [facility] Screening buprenorphine dete ctionOrdered By: Dr. Gonzalez on 07-15-2022 Buprenorphine Screen Ql (Unsp spec) Positive <10 ng/mL [facility] Urine phencyclidine (PCP) de tectionOrdered By: Dr. Gonzalez on 07-15-2022 Phencyclidine Ql (U) Negative < 25 ng/mL [facility] Absolute lymphocyte countOrd ered By: Dr. Ferreira on 05-13-2022 Lymphocytes Auto (Unsp spec) [#/Vol] 1.36 10*3/uL 0.83-4.51 [facility] Basophil percentageOrdered B y: Dr. Ferreira on 05-13-2022 Basophil percentage 0-5 SEEN /hpf 0-5 [facility] Basophils/100 WBC (Bld) 0.6 % 0-1 [facility] Bilirubin [Mass/Vol] 0.50 mg/dL 0.20-1.00 [facility] Comment on above: For patients on eltr ombopag therapy, use of Dimension [place] TBIL is not recommended. Chloride [Moles/Vol] 104 mmol/L 98-107 [facility] Cholesterol [Mass/Vol] 135 mg/dL <200 [facility] Comment on above: <200 mg/dL Desirable 200-240 mg/dL Borderline >240 mg/dL High Risk Eosinophils/100 WBC (Bld) 3.0 % 0-5 [facility] Glucose [Mass/Vol] 94 mg/dL 74-106 [facility] Neutrophils (Bld) [#/Vol] 6.3 10*3/uL 2.0-7.7 [facility] Neutrophils/100 WBC (Bld) 73.0 % 47-70 [facility] Potassium [Moles/Vol] 3.6 mmol/L 3.5-5.1 [facility] Protein [Mass/Vol] 7.6 g/dL 6.4-8.2 [facility] Sodium [Moles/Vol] 138 mmol/L 136-145 [facility] Triglyceride [Mass/Vol] 145 mg/dL <199 [facility] Comment on above: The drugs N-Acetylcy steine and Metamizole may falsely depress this assay.Serum Triglycerides Reference Interval Normal <150 mg/dL Borderline high 150 - 199 mg/dL High 200 - 499 mg/dL Very High > or = 500 mg/dL WBC (Bld) [#/Vol] 8.7 10*3/uL 4.4-11.0 [facility] Bilirubin Test strip Ql (U)O rdered By: Dr. Ferreira on 05-13-2022 Bilirubin Ql (U) Negative Negative [facility] Blood erythrocytes count (nu mber/volume)Ordered By: Dr. Ferreira on 05-13-2022 RBC (Bld) [#/Vol] 5.29 10*6/uL 4.2-5.4 [facility] Blood hemoglobin measurement (mass/volume)Ordered By: Dr. Ferreira on 05-13-2022 Hemoglobin (Bld) [Mass/Vol] 16.1 g/dL 12.0-15.0 [facility] Blood lymphocytes/100 leukoc ytesOrdered By: Dr. Ferreira on 05-13-2022 Lymphocytes/100 WBC (Bld) 15.7 % 19-41 [facility] Blood monocytes/100 leukocyt esOrdered By: Dr. Ferreira on 05-13-2022 Monocytes/100 WBC (Bld) 7.2 % 0-10 [facility] Blood platelet mean volumeOr dered By: Dr. Ferreira on 05-13-2022 Platelet mean volume (Bld) [Entitic vol] 9.8 fL 6.2-12.0 [facility] Determination of erythrocyte mean corpuscular volume (MCV)Ordered By: Dr. Ferreira on 05-13-2022 MCV (RBC) [Entitic vol] 95.1 fL 81-99 [facility] Hematocrit Auto (Bld) [Volum e fraction]Ordered By: Dr. Ferreira on 05-13-2022 Hematocrit (Bld) [Volume fraction] 50.3 % 37-47 [facility] Iron measurement (mass/mass) Ordered By: Dr. Ferreira on 05-13-2022 Iron (Unsp spec) [Mass/Mass] 62 ug/dL 50-170 [facility] Ketones Test strip Ql (U)Ord ered By: Dr. Ferreira on 05-13-2022 Ketones Ql (U) Negative Negative [facility] - Chemistry and C hemistry - challengeOrdered By: Dr. Ferreira on 05-13-2022 ALP [Catalytic activity/Vol] 63 U/L 45-117 [facility] ALT [Catalytic activity/Vol] 24 U/L 13-56 [facility] CO2 [Moles/Vol] 29.0 mmol/L 21.0-32.0 [facility] Globulin (S) [Mass/Vol] 3.6 g/dL 2.2-4.2 [facility] Urea nitrogen/Creatinine [Mass ratio] 19.5 mg/mg 10-20 [facility] - Hematology and Cell countsOrdered By: Dr. Ferreira on 05-13-2022 Erythrocyte distribution width (RBC) [Entitic vol] 47.6 fL 35.1-43.9 [facility] Erythrocyte distribution width (RBC) [Ratio] 13.5 % 11.6-14.6 [facility] Immature granulocytes/100 WBC (Bld) 0.500 % 0.0-0.9 [facility] Comment on above: IG% - Immature Granu locytes (promyelocytes, myelocytes and metamyelocytes) > 1% indicates that a LEFT SHIFT is Present. MCH (RBC) [Entitic mass] 30.4 pg 27.0-32.0 [facility] Nucleated RBC/100 WBC (Bld) [Ratio] 0 % 0-5 [facility] MCHC Auto (RBC) [Mass/Vol]Or dered By: Dr. Ferreira on 05-13-2022 MCHC (RBC) [Mass/Vol] 32.0 g/dL 32-36 [facility] Mucus LM Ql (Urine sed)Order ed By: Dr. Ferreira on 05-13-2022 Mucus Ql (Urine sed) 0 SEEN /hpf [facility] Nitrite Test strip Ql (U)Ord ered By: Dr. Ferreira on 05-13-2022 Nitrite Ql (U) Negative Negative [facility] No Panel InformationOrdered By: Dr. Ferreira on 05-13-2022 Estimated GFR (MDRD) Amer 98 mL/min >60 [facility] Comment on above: GFR Calc Estimated GFR (MDRD) Non-Af Amer 81 mL/min >60 [facility] Comment on above: Non- GFR Calc Total Iron Binding Capacity 390 ug/dL 250-450 [facility] Vitamin D 25-Hydroxy 73.0 ng/mL [facility] Comment on above: Vitamin D 25(OH) Sta tus Range Deficiency <20 ng/mL (50nmol/L) Insufficiency 20 - 30 ng/mL (50 - 75 nmol/L) Sufficiency 30 - 100 ng/mL (75 - 250 nmol/L) Toxicity >100 ng/mL (>250 nmol/L) Platelets bldOrdered By: Dr. Ferreira on 05-13-2022 Platelets (Bld) [#/Vol] 238 10*3/uL 150-450 [facility] Protein Test strip Ql (U)Ord ered By: Dr. Ferreira on 05-13-2022 Protein Ql (U) Negative Negative [facility] Serum or plasma albumin faraz urement (mass/volume)Ordered By: Dr. Ferreira on 05-13-2022 Albumin [Mass/Vol] 4.0 g/dL 3.2-5.0 [facility] Serum or plasma albumin/glob ulin mass ratioOrdered By: Dr. Ferreira on 05-13-2022 Albumin/Globulin [Mass ratio] 1.1 {ratio} 0.9-2.4 [facility] Serum or plasma calcium faraz urement (mass/volume)Ordered By: Dr. Ferreira on 05-13-2022 Calcium [Mass/Vol] 9.3 mg/dL 8.5-10.1 [facility] Serum or plasma cholesterol in HDL measurement (mass/volume)Ordered By: Dr. Ferreira on 05-13-2022 Cholesterol in HDL [Mass/Vol] 42 mg/dL >40 [facility] Comment on above: The drugs N-Acetylcy steine and Metamizole may falsely depress this assay. Reference Range HDL <40 mg/dL Low HDL Cholesterol HDL >or= 60 mg/dL High HDL Cholesterol Serum or plasma cholesterol in VLDL measurement (mass/volume)Ordered By: Dr. Ferreira on 05-13-2022 Cholesterol in VLDL [Mass/Vol] 29 mg/dL 5-40 [facility] Serum or plasma creatinine m easurement (mass/volume)Ordered By: Dr. Ferreira on 05-13-2022 Creatinine [Mass/Vol] 0.77 mg/dL 0.55-1.02 [facility] Comment on above: The validity of the calculated GFR & GFRAA in patients over 70 years has not been determined. Clinical correlation is essential. Serum or plasma ferritin devan surement (mass/volume)Ordered By: Dr. Ferreira on 05-13-2022 Ferritin [Mass/Vol] 216 ng/mL 8-252 [facility] Serum or plasma low density lipoprotein (LDL) cholesterol measurement (mass/volume)Ordered By: Dr. Ferreira on 05-13-2022 Cholesterol in LDL [Mass/Vol] 64 mg/dL 0-130 [facility] Serum or plasma urea nitroge n measurement (mass/volume)Ordered By: Dr. Ferreira on 05-13-2022 Urea nitrogen [Mass/Vol] 15 mg/dL 7-18 [facility] Squamous epithelial cells de tection in urine sediment by light microscopyOrdered By: Dr. Ferreira on 05-13-2022 Epithelial cells.squamous LM Ql (Urine sed) 5-10 SEEN /hpf 5-10 [facility] Thin prep Papanicolaou smear with manual screeningOrdered By: Dr. Ferreira on 05-13-2022 Thin prep Papanicolaou smear with manual screening 17 U/L 15-37 [facility] Thin prep Papanicolaou smear with manual screening 5 5-15 [facility] Urine blood detectionOrdered By: Dr. Ferreira on 05-13-2022 RBC Ql (U) 25 /ul Negative [facility] RBC Ql (U) 0-5 SEEN /hpf 0-5 [facility] Urine clarityOrdered By: Dr. Ferreira on 05-13-2022 Clarity (U) Sl. Cloudy Clear [facility] Urine color determinationOrd ered By: Dr. Ferreira on 05-13-2022 Color (U) Yellow Yellow [facility] Urine glucose detectionOrder ed By: Dr. Ferreira on 05-13-2022 Glucose Ql (U) Normal mg/dl Normal [facility] Urine leukocyte esterase det ection by dipstickOrdered By: Dr. Ferreira on 05-13-2022 Leukocyte esterase Test strip Ql (U) 25 /ul Negative [facility] Urine pHOrdered By: Dr. Dwaine montana on 05-13-2022 pH (U) 7.0 [pH] 5.0 - 8.0 [facility] Urine sediment bacteria coun t by microscopy (number/high power field)Ordered By: Dr. Ferreira on 05-13-2022 Bacteria LM.HPF (Urine sed) [#/Area] 1 /[HPF] None Seen [facility] Urine specific gravity measu rementOrdered By: Dr. Ferreira on 05-13-2022 Specific gravity (U) [Rel density] 1.015 1.002-1.030 [facility] Urobilinogen Auto test strip Ql (U)Ordered By: Dr. Ferreira on 05-13-2022 Urobilinogen Ql (U) Normal mg/dl Normal [facility] CNPNon 04-15-2022 CNPN Telephone (ORMDNA) ---- MIKE PERDOMO ([id number]) 1960 F Date Time Provider Department 04/15/22 VERN TEIXEIRA During your visit today, we recorded the following information about you: Mabel Newman Ma 04/15/2022 4:35 PM Signed Patient is scheduled with Dr. Fraire on 04/17/21 for a thumb laceration. Per Dr. Fraire patient needs to see Dr. Teixeira. Patient booked with Dr. Teixeira on 04/17 @ 1:30. Attempted to contact patient of appointment change. No answer on patient's phone and unable to leave a message her voicemail is full. Mabel Newman Ma 04/16/2022 8:31 AM Signed Spoke with patient. She is aware of provider change and x-ray is needed prior to her appointment. Allergies As of Date: 04/15/2022 Noted Allergy Reaction AMOXICILLIN 06/20/2013 12 - Shortness of Breath Date Reviewed: 02/28/2022 Reviewed by: Acacia Llanes MA - Fully Assessed Reason for Visit: Upcomining appointment [Other] Prescriptions as of 04/16/2022 - losartan-hydroCHLOR Othiazide (HYZAAR) 50-12.5 mg per tablet Take 1 tablet by mouth once daily. - atorvastatin (LIPITOR) 20 mg tablet take 1 tablet by mouth nightly - BELBUCA [address] 1 FILM BETWEEN CHEEK AND GUM twice a day - cholecalciferol (VITAMIN D3) 50 mcg (2,000 unit) tablet Take by mouth. - FEROSUL 325 mg (65 mg iron) tablet Take 1 tablet by mouth once daily. - gabapentin (NEURONTIN) 300 mg capsule Take up to 900mg TID as tolerated - sertraline 50 mg tablet Take 50 mg by mouth once daily. - ergocalciferol 50,000 unit capsule (VITAMIN D2, DRISDOL) Take 50,000 Units by mouth once each week. - traMADol 50 mg tablet Take 50 mg by mouth every 8 hours as needed. - ROYAL JELLY-BEE POLLEN ORAL Take by mouth. - Ibuprofen 200 mg ORAL Cap Take by mouth. Problem List As Of Date: 04/15/2022 (None) Encounter Status:Closed by MABEL NEWMAN MA on 04/16/22 [facility] MELISAOVtoño 02-28-2022 CNOV Office Visit (UCWSTR) ---- MIKE PERDOMO ([id number]) 1960 F Date Time Provider Department 02/28/22 6:15 PM JASON SHIN [facility] During your visit today, we recorded the following information about you: Temperature Pulse Respiration Blood pressure 97.9 degrees 74/minute 18/minute 162/100 Weight 82.6 kg Jasno Shin APRN.CNP 02/28/2022 6:33 PM Signed Patient triaged at [facility]. Here today with left hand thumb laceration. On triage exam extension of injured thumb is weak and very painful. I will refer to ER for possible tendon involvement. [facility] visit. Referring Provider: SELF [[id number]] Allergies As of Date: 02/28/2022 Noted Allergy Reaction AMOXICILLIN 06/20/2013 12 - Shortness of Breath Date Reviewed: 02/28/2022 Reviewed by: Acacia Llanes MA - Fully Assessed Reason for Visit: Laceration [1747] Cmt: L thumb cut at work x45 mins Primary Visit Diagnosis:Hand injuries, left, initial encounter [S69.92XA] Prescriptions as of 02/28/2022 - losartan-hydroCHLOR Othiazide (HYZAAR) 50-12.5 mg per tablet Take 1 tablet by mouth once daily. - atorvastatin (LIPITOR) 20 mg tablet take 1 tablet by mouth nightly - BELBUCA [address] 1 FILM BETWEEN CHEEK AND GUM twice a day - cholecalciferol (VITAMIN D3) 50 mcg (2,000 unit) tablet Take by mouth. - FEROSUL 325 mg (65 mg iron) tablet Take 1 tablet by mouth once daily. - gabapentin (NEURONTIN) 300 mg capsule Take up to 900mg TID as tolerated - sertraline 50 mg tablet Take 50 mg by mouth once daily. - ergocalciferol 50,000 unit capsule (VITAMIN D2, DRISDOL) Take 50,000 Units by mouth once each week. - traMADol 50 mg tablet Take 50 mg by mouth every 8 hours as needed. - ROYAL JELLY-BEE POLLEN ORAL Take by mouth. - Ibuprofen 200 mg ORAL Cap Take by mouth. Problem List As Of Date: 02/28/2022 (None) Encounter Status:Closed by JASON SHIN on 02/28/[address] [facility] Absolute lymphocyte counton 10-01-2021 Lymphocytes Auto (Unsp spec) [#/Vol] 1.80 10*3/uL 0.83-4.51 [facility] Work Phone: Basophil percentageon 2021 Basophil percentage 0-5 SEEN /hpf 0-5 [facility] Work Phone: Basophils/100 WBC (Bld) 1.0 % 0-1 [facility] Work Phone: Bilirubin [Mass/Vol] 0.20 mg/dL 0.20-1.00 [facility] Work Phone: Comment on above: For patients on eltr ombopag therapy, use of Dimension [place] TBIL is not recommended. Chloride [Moles/Vol] 103 mmol/L 98-107 [facility] Work Phone: Cholesterol [Mass/Vol] 150 mg/dL <200 [facility] Work Phone: Comment on above: <200 mg/dL Desirable 200-240 mg/dL Borderline >240 mg/dL High Risk Eosinophils/100 WBC (Bld) 5.0 % 0-5 [facility] Work Phone: Glucose [Mass/Vol] 106 mg/dL 74-106 [facility] Work Phone: Comment on above: Fasting Glucose resu lt from 100 to 125 mg/dL suggests IMPAIRED HOMEOSTASIS per A.D.A. criteria. Neutrophils (Bld) [#/Vol] 5.6 10*3/uL 2.0-7.7 [facility] Work Phone: Neutrophils/100 WBC (Bld) 63.9 % 47-70 [facility] Work Phone: Potassium [Moles/Vol] 3.7 mmol/L 3.5-5.1 [facility] Work Phone: Protein [Mass/Vol] 7.1 g/dL 6.4-8.2 [facility] Work Phone: Sodium [Moles/Vol] 138 mmol/L 136-145 [facility] Work Phone: Triglyceride [Mass/Vol] 193 mg/dL <199 [facility] Work Phone: Comment on above: The drugs N-Acetylcy steine and Metamizole may falsely depress this assay.Serum Triglycerides Reference Interval Normal <150 mg/dL Borderline high 150 - 199 mg/dL High 200 - 499 mg/dL Very High > or = 500 mg/dL WBC (Bld) [#/Vol] 8.8 10*3/uL 4.4-11.0 [facility] Work Phone: Bilirubin Test strip Ql (U)o n 10-01-2021 Bilirubin Ql (U) Negative Negative [facility] Work Phone: Blood erythrocytes count (nu mber/volume)on 10-01-2021 RBC (Bld) [#/Vol] 4.91 10*6/uL 4.2-5.4 [facility] Work Phone: Blood hemoglobin measurement (mass/volume)on 10-01-2021 Hemoglobin (Bld) [Mass/Vol] 15.1 g/dL 12.0-15.0 [facility] Work Phone: Blood lymphocytes/100 leukoc yteson 10-01-2021 Lymphocytes/100 WBC (Bld) 20.5 % 19-41 [facility] Work Phone: Blood monocytes/100 leukocyt eson 10-01-2021 Monocytes/100 WBC (Bld) 9.1 % 0-10 [facility] Work Phone: Blood platelet mean volumeon 10-01-2021 Platelet mean volume (Bld) [Entitic vol] 9.1 fL 6.2-12.0 [facility] Work Phone: Determination of erythrocyte mean corpuscular volume (MCV)on 10-01-2021 MCV (RBC) [Entitic vol] 92.1 fL 81-99 [facility] Work Phone: Hematocrit Auto (Bld) [Volum e fraction]on 10-01-2021 Hematocrit (Bld) [Volume fraction] 45.2 % 37-47 [facility] Work Phone: Iron measurement (mass/mass) on 10-01-2021 Iron (Unsp spec) [Mass/Mass] 46 ug/dL 50-170 [facility] Work Phone: Ketones Test strip Ql (U)on 10-01-2021 Ketones Ql (U) Negative Negative [facility] Work Phone: Laboratory - Chemistry and C hemistry - challengeon 10-01-2021 ALP [Catalytic activity/Vol] 63 U/L 45-117 [facility] Work Phone: ALT [Catalytic activity/Vol] 22 U/L 13-56 [facility] Work Phone: CO2 [Moles/Vol] 31.0 mmol/L 21.0-32.0 [facility] Work Phone: Globulin (S) [Mass/Vol] 3.4 g/dL 2.2-4.2 [facility] Work Phone: Urea nitrogen/Creatinine [Mass ratio] 24.1 mg/mg 10-20 [facility] Work Phone: Laboratory - Hematology and Cell countson 10-01-2021 Erythrocyte distribution width (RBC) [Entitic vol] 45.0 fL 35.1-43.9 [facility] Work Phone: Erythrocyte distribution width (RBC) [Ratio] 13.2 % 11.6-14.6 [facility] Work Phone: Immature granulocytes/100 WBC (Bld) 0.500 % 0.0-0.9 [facility] Work Phone: Comment on above: IG% - Immature Granu locytes (promyelocytes, myelocytes and metamyelocytes) > 1% indicates that a LEFT SHIFT is Present. MCH (RBC) [Entitic mass] 30.8 pg 27.0-32.0 [facility] Work Phone: Nucleated RBC/100 WBC (Bld) [Ratio] 0 % 0-5 [facility] Work Phone: MCHC Auto (RBC) [Mass/Vol]on 10-01-2021 MCHC (RBC) [Mass/Vol] 33.4 g/dL 32-36 [facility] Work Phone: Mucus LM Ql (Urine sed)on Mucus Ql (Urine sed) 0 SEEN /hpf [facility] Work Phone: Nitrite Test strip Ql (U)on 10-01-2021 Nitrite Ql (U) Negative Negative [facility] Work Phone: No Panel Informationon 10-01 Estimated GFR (MDRD) Amer 85 mL/min >60 [facility] Work Phone: Comment on above: GFR Calc Estimated GFR (MDRD) Non-Af Amer 70 mL/min >60 [facility] Work Phone: Comment on above: Non- GFR Calc Total Iron Binding Capacity 355 ug/dL 250-450 [facility] Work Phone: Vitamin D 25-Hydroxy 63.2 ng/mL [facility] Work Phone: Comment on above: Vitamin D 25(OH) Sta tus Range Deficiency <20 ng/mL (50nmol/L) Insufficiency 20 - 30 ng/mL (50 - 75 nmol/L) Sufficiency 30 - 100 ng/mL (75 - 250 nmol/L) Toxicity >100 ng/mL (>250 nmol/L) Platelets bldon 10-01-2021 Platelets (Bld) [#/Vol] 245 10*3/uL 150-450 [facility] Work Phone: Protein Test strip Ql (U)on 10-01-2021 Protein Ql (U) Negative Negative [facility] Work Phone: Serum or plasma albumin faraz urement (mass/volume)on 10-01-2021 Albumin [Mass/Vol] 3.7 g/dL 3.2-5.0 [facility] Work Phone: Serum or plasma albumin/glob ulin mass ratioon 10-01-2021 Albumin/Globulin [Mass ratio] 1.1 {ratio} 0.9-2.4 [facility] Work Phone: Serum or plasma calcium faraz urement (mass/volume)on 10-01-2021 Calcium [Mass/Vol] 9.8 mg/dL 8.5-10.1 [facility] Work Phone: Serum or plasma cholesterol in HDL measurement (mass/volume)on 10-01-2021 Cholesterol in HDL [Mass/Vol] 37 mg/dL >40 [facility] Work Phone: Comment on above: The drugs N-Acetylcy steine and Metamizole may falsely depress this assay. Reference Range HDL <40 mg/dL Low HDL Cholesterol HDL >or= 60 mg/dL High HDL Cholesterol Serum or plasma cholesterol in VLDL measurement (mass/volume)on 10-01-2021 Cholesterol in VLDL [Mass/Vol] 39 mg/dL 5-40 [facility] Work Phone: Serum or plasma creatinine m easurement (mass/volume)on 10-01-2021 Creatinine [Mass/Vol] 0.87 mg/dL 0.55-1.02 [facility] Work Phone: Comment on above: The validity of the calculated GFR & GFRAA in patients over 70 years has not been determined. Clinical correlation is essential. Serum or plasma ferritin devan surement (mass/volume)on 10-01-2021 Ferritin [Mass/Vol] 163 ng/mL 8-252 [facility] Work Phone: Serum or plasma low density lipoprotein (LDL) cholesterol measurement (mass/volume)on 10-01-2021 Cholesterol in LDL [Mass/Vol] 74 mg/dL 0-130 [facility] Work Phone: Serum or plasma urea nitroge n measurement (mass/volume)on 10-01-2021 Urea nitrogen [Mass/Vol] 21 mg/dL 7-18 [facility] Work Phone: Squamous epithelial cells de tection in urine sediment by light microscopyon 10-01-2021 Epithelial cells.squamous LM Ql (Urine sed) 0 SEEN /hpf 5-10 [facility] Work Phone: Thin prep Papanicolaou smear with manual screeningon 10-01-2021 Thin prep Papanicolaou smear with manual screening 17 U/L 15-37 [facility] Work Phone: Thin prep Papanicolaou smear with manual screening 4 5-15 [facility] Work Phone: Urine blood detectionon 09-05 RBC Ql (U) 25 /ul Negative [facility] Work Phone: RBC Ql (U) 0-5 SEEN /hpf 0-5 [facility] Work Phone: Urine clarityon 10-01-2021 Clarity (U) Clear Clear [facility] Work Phone: Urine color determinationon 10-01-2021 Color (U) Yellow Yellow [facility] Work Phone: Urine glucose detectionon Glucose Ql (U) Normal mg/dl Normal [facility] Work Phone: Urine leukocyte esterase det ection by dipstickon 10-01-2021 Leukocyte esterase Test strip Ql (U) 25 /ul Negative [facility] Work Phone: Urine pHon 10-01-2021 pH (U) 6.0 [pH] 5.0 - 8.0 [facility] Work Phone: Urine sediment bacteria coun t by microscopy (number/high power field)on 10-01-2021 Bacteria LM.HPF (Urine sed) [#/Area] RARE /hpf None Seen [facility] Work Phone: Urine specific gravity measu rementon 10-01-2021 Specific gravity (U) [Rel density] 1.020 1.002-1.030 [facility] Work Phone: Urobilinogen Auto test strip Ql (U)on 10-01-2021 Urobilinogen Ql (U) Normal mg/dl Normal [facility] Work Phone: Laboratory - Drug toxicology on 09-17-2021 Amphetamines Ql (U) Negative <1000 ng/mL [facility] Work Phone: Benzodiazepines Ql (U) Negative < 200 ng/mL [facility] Work Phone: Cannabinoids Screen Ql (U) Negative < 50 ng/mL [facility] Work Phone: Cocaine Ql (U) Negative < 300 ng/mL [facility] Work Phone: Opiates Ql (U) Negative < 300 ng/mL [facility] Work Phone: No Panel Informationon 09-17 Urine Drug Screen Comment [facility] Work Phone: Comment on above: CONFIRMATORY TESTING FOR ALL POSITIVE URINE DRUG SCREENRESULTS WILL ONLY BE SENT OUT UPON PHYSICIAN ORDER. The results of Urine Drug Screen methods provide only preliminary analytical test results. A more specific alternate chemical method must be used in order to obtain a confirmed analytical result. Gas chromatography/mass spectrometery (GC/MS) is the preferred confirmatory method. Clinical consideration and professional judgement should be applied to any drug of abuse test result, particularly whenpreliminary positive results are used. MDMA (Ecstasy) Screen Negative < 500 ng/mL [facility] Work Phone: Miscellaneous Test See comment [facility] Work Phone: Comment on above: [id number] 6+OXYCODONE-B UND (ng/mL) DRUG RESULT SCREEN CUTOFF____ Amphetamines,Urine Negative ng/mL 1000 Amphetamine test includes Amphetamine and Methamphetamine.Barbiturates Negative ng/mL 200Benzodiazepines Negative ng/mL 200Cannabinoid Negative ng/mL 20Cocaine (Metab) Negative ng/mL 300Opiates Negative ng/mL 300 Opiates test includes Codeine, Morphine, Hydromorphone, Hydrocodone. Oxycodone/Oxymorphone,Urine Negative ng/mL 300 Test includes Oxydodone and Oxymorphone. TESTING PERFORMED AT [facility]. ORIGINAL REPORT ON FILE IN LAB CONTAINS ADDITIONAL TEST SITE INFORMATION. Urine Barbiturates Screen Negative < 200 ng/m L [facility] Work Phone: Urine Methadone Screen Negative < 300 ng/mL [facility] Work Phone: Screening buprenorphine dete ctionon 09-17-2021 Buprenorphine Screen Ql (Unsp spec) Positive <10 ng/mL [facility] Work Phone: Urine phencyclidine (PCP) de tectionon 09-17-2021 Phencyclidine Ql (U) Negative < 25 ng/mL [facility] Work Phone: Vital Signs Date Time Vital Sign Value Performing Clinician Faci lity 04-17-2023 13:49-0500 Body height 165.[address] David Ferreira Work Phone: [facility] 01-16-2023 18:25-0400 Body height 165.1 cm [facility] 01-16-2023 18:25-0400 Body mass index (BMI) [Ratio] 28.8 kg/m2 [facility] 01-16-2023 18:25-0400 Body temperature 96.8 [degF] [facility] 01-16-2023 18:25-0400 Body weight 78.4 kg [facility] 01-16-2023 18:25-0400 Diastolic blood pressure 95 mm[Hg] [facility] 01-16-2023 18:25-0400 Heart rate 71 /min [facility] 01-16-2023 18:25-0400 Respiratory rate 16 /min [facility] 01-16-2023 18:25-0400 Systolic blood pressure 151 mm[Hg] [facility] 11-15-2022 15:25-0400 Body mass index (BMI) [Ratio] 29.4 kg/m2 [facility] 11-15-2022 15:25-0400 Body temperature 97.3 [degF] [facility] 11-15-2022 15:25-0400 Body weight 80.24 kg [facility] 11-15-2022 15:25-0400 Diastolic blood pressure 80 mm[Hg] [facility] 11-15-2022 15:25-0400 Heart rate 78 /min [facility] 11-15-2022 15:25-0400 Respiratory rate 16 /min [facility] 08-12-2023 15:25-0400 SaO2% (BldA) [Mass fraction] 97 % [facility] 11-15-2022 15:25-0400 Systolic blood pressure 146 mm[Hg] [facility] 02-28-2022 18:11-0500 Body temperature 97.9 [degF] Jason Shin [employer]CT [employer] INSTRUCTOR.[employer]TER MECH[employer]IC Work Phone: [facility] 02-28-2022 18:11-0500 Body weight 82.64 kg Jason Shin [employer]JUNCT PHLEBOTOMY INSTRUCTOR.HELICOPTER MECHANIC Work Phone: [facility] 02-28-2022 18:11-0500 Diastolic blood pressure 100 mm[Hg] Jason Shin ADJUNCT PHLEBOTOMY INSTRUCTOR.HELICOPTER MECHANIC Work Phone: [facility] 02-28-2022 18:11-0500 Heart rate 74 /min Jason Shin ADJUNCT PHLEBOTOMY INSTRUCTOR.HELICOPTER MECHANIC Work Phone: [facility] 02-28-2022 18:11-0500 Respiratory rate 18 /min Jason Sihn ADJUNCT PHLEBOTOMY INSTRUCTOR.HELICOPTER MECHANIC Work Phone: [facility] 02-28-2022 18:11-0500 SaO2% (BldA) [Mass fraction] 98 % Jason Shin ADJUNCT PHLEBOTOMY INSTRUCTOR.HELICOPTER MECHANIC Work Phone: [facility] 02-28-2022 18:11-0500 Systolic blood pressure 162 mm[Hg] Jason Shin ADJUNCT PHLEBOTOMY INSTRUCTOR.HELICOPTER MECHANIC Work Phone: [facility] Encounters Encounter Date Encounter Type Care Provider Facility Start: 09-27-2024 ambulatory David Ferreira Facilit y:[facility] Start: 05-17-2024 End: 05-17-2024 ambulatory David Ferreira Facility:[facility] Start: 05-09-2024 End: 05-09-2024 ambulatory David Ferreira Facility:[facility] Start: 05-03-2024 End: 05-03-2024 ambulatory David Ferreira Facility:[facility] Start: 11-24-2023 End: 11-24-2023 ambulatory David Ferreira Facility:[facility] Start: 07-20-2023 End: 07-20-[address] David Ferreira Work Phone: [facility] Work Phone: Start: 07-20-2023 End: 07-20-[address] David Ferreira Work Phone: [facility] Work Phone: Start: 05-05-2023 End: 05-05-[address] David Ferreira Work Phone: [facility] Work Phone: Start: 04-20-2023 End: 04-20-[address] David Ferreira Work Phone: [facility] Work Phone: Start: 01-16-2023 End: 01-16-2023 Emergency department patient visit [facility] Work Phone: Start: 11-15-2022 End: 11-15-2022 Emergency department patient visit [facility] Work Phone: Start: 07-15-2022 End: 07-15-2022 ambulatory [facility] Work Phone: Start: 07-15-2022 End: 07-15-2022 Patient encounter procedure [facility] Start: 05-13-2022 End: 05-13-2022 Patient encounter procedure [facility] Start: 04-15-2022 Telephone encounter Vern patel MD Work Phone: Orthopaedics Comment on above: Upcomining appointar nt Start: 02-28-2022 End: 02-28-2022 ambulatory NORY FAUSTIN Facility:[facility] Start: 02-28-2022 End: 02-28-2022 Patient encounter procedure Jason Shin APRN.CNP Work Phone: [facility] Comment on above: Hand injuries, left, initial encounter (Primary Dx) Start: 10-01-2021 End: 10-01-2021 Patient encounter procedure [facility], Namita Ochoa Start: 09-17-2021 End: 09-17-2021 Patient encounter procedure [facility] Procedures Date Procedure Procedure Detail Performing Clinician Start: 04-20-2023 X-ray of both feet Dr. David Ferreira Work Phone: Start: 01-16-2023 X-ray of both feet Start: 11-15-2022 CT of abdomen and pe lvis without contrast Plan of Treatment Date Care Activity Detail Author Start: 01-16-2023 [facility] Start: 11-15-2022 Incision & drainage abscess simple/single DRAINAGE OF SKIN ABSCESS [facility] Start: 04-06-2022 DEPRESSION ASSESSMENT DEPRESSION ASSESSMENT [facility] Start: 12-05-2021 Influenza vaccination INFLUENZA (#1) [facility] Start: 07-16-2021 SHINGRIX VACCINE (2 of 2) SHINGRIX VACCINE (2 of 2) [facility] Start: 04-06-2021 DEPRESSION ASSESSMENT DEPRESSION ASSESSMENT [facility] Start: 09-21-2020 COVID-19 VACCINE (3 - Booster for Moderna series) COVID-19 VACCINE (3 - Booster for Moderna series) [facility] Start: 04-06-2012 Urine microalbumin profile DTAP,TDAP,TD (1 - Tdap) [facility] Start: 04-18-2008 PAP TESTING PAP TESTING [facility] Start: 10-01-2004 COLOGUARD (FIT-DNA) COLOGUARD (FIT-DNA) [facility] Start: 10-01-2004 Colonoscopy COLONOSCOPY [facility] Start: 10-01-2004 COLORECTAL CANCER SCREENING COLORECTAL CANCER SCREENING [facility] Start: 10-01-[address] COLONOGRAPHY [facility] Start: 10-01-2004 DIABETES SCREEN DIABETES SCREEN [facility] Start: 10-01-2004 FECAL OCCULT BLOOD FECAL OCCULT BLOOD [facility] Start: 10-01-2004 LIPID SCREEN LIPID SCREEN [facility] Start: 10-01-2004 SIGMOIDOSCOPY SIGMOIDOSCOPY [facility] Start: 1999 Mammography MAMMOGRAM [facility] Start: 10-01-1989 HPV TESTING HPV TESTING [facility] Start: 10-01-1977 HEPATITIS C SCREENING HEPATITIS C SCREENING [facility] Start: 10-01-1977 HIV SCREENING HIV SCREENING [facility] Patient Education ED Abscess Inc ision And Drainage ED Kidney Stone w/ Colic [facility] Work Phone: Patient referral [facility] Work Phone: [place] Immunizations Immunization Date Immunization Notes Care Provider Erasmo cobb 02-28-2022 tetanus toxoid, redu adilene diphtheria toxoid, and acellular pertussis vaccine, adsorbed [facility] 05-21-2021 zoster vaccine recombinant Jason Kip ADJUNCT PHLEBOTOMY INSTRUCTOR.HELICOPTER MECHANIC Work Phone: [facility] 04-24-2020 pneumococcal polysaccharide vaccine, 23 valent Jason Kip ADJUNCT PHLEBOTOMY INSTRUCTOR.HELICOPTER MECHANIC Work Phone: [facility] 01-11-2019 influenza, injectabl e, quadrivalent, contains preservative Jason Kip ADJUNCT PHLEBOTOMY INSTRUCTOR.HELICOPTER MECHANIC Work Phone: [facility] 01-07-2018 influenza, seasonal, injectable Jason Kip ADJUNCT PHLEBOTOMY INSTRUCTOR.HELICOPTER MECHANIC Work Phone: [facility] 02-09-2017 influenza, injectabl e, quadrivalent, contains preservative Jason Kip ADJUNCT PHLEBOTOMY INSTRUCTOR.HELICOPTER MECHANIC Work Phone: [facility] 12-06-2015 influenza, seasonal, injectable Jason Kip ADJUNCT PHLEBOTOMY INSTRUCTOR.HELICOPTER MECHANIC Work Phone: [facility] 02-04-2015 influenza, seasonal, injectable Jason Kip ADJUNCT PHLEBOTOMY INSTRUCTOR.HELICOPTER MECHANIC Work Phone: [facility] 12-20-2013 influenza, seasonal, injectable Jason Kip ADJUNCT PHLEBOTOMY INSTRUCTOR.HELICOPTER MECHANIC Work Phone: [facility] 04-05-2012 TD(adult) unspecifie d formulation Jason Kip ADJUNCT PHLEBOTOMY INSTRUCTOR.HELICOPTER MECHANIC Work Phone: [facility] Payers Date Payer Category Payer Self-pay [id number] 2022 Unknown PENDING 2021 Unknown [id number] 2021 Unknown [id number] Unknown [id number] Unknown [facility] [id number] Unknown [id number] Unknown [id number] Unknown [id number] [id number] [id number] Unknown [id number] [id number] Unknown [id number] Social History Date Type Detail Facility Start: 03-22-2020 End: 04-20-2023 Tobacco smoking status MEIS Unknown if ever smoked [facility] Start: 1960 Sex Assigned At Female [facility] Start: 06-20-2013 [facility] History of tobacco use Current smoker [facility] Start: 06-20-2013 Tobacco use and exposure Smokeless tobacco non-user [facility] Start: 02-28-2022 Alcohol intake 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 David Ferreira MD Status:RE G ER Location: ED HPI History of Present Illness Chief Complaint: Lower Extremity Injury Detail of Chief Complaint: Pain and swelling right foot Informant: patient Occured/Mechanism Mechanism/Context: Yes injury Comment: States she had a twisting mechanism of injury. She felt a pop. She was unable to bear weight. Onset/Context/Timing Onset: Hours Context: Sudden Onset Timing: Continuous Quality of Pain: Dull, Aching and Throbbing Current Severity: Mild Maximum Severity: Severe Worsened by: Weightbearing Relieved by: Elevation Associated Symptoms Associated Symptoms: Positive for Loss of Funtion Narrative Narrative: Patient is a 62-year-old woman who is in pain management and his history of hypertension who presents with injury to her right foot. She complains of pain on the dorsal lateral surface. She denies paresthesia, anesthesia or motor weakness. Denies prior injury. She states she is unable to ambulate or bear weight. Prior similar symptoms: No Recent Illness/Hospitalization: [facility] Medical History Degenerative disc disease, cervical Hypertension Home Medications atorvastatin 20 mg tablet 20 mg PO QHS 02/07/14 [History Last Taken Unknown] cholecalciferol (vitamin D3) 50 mcg (2,000 unit) tablet 2,000 unit PO DAILY 02/07/14 [History Last Taken Unknown] cyclobenzaprine 10 mg tablet 10 mg PO TID PRN PRN Pain 02/07/14 [History Last Taken Unknown] buprenorphine 10 mcg/hour weekly transdermal patch 1 patch transdermal Q7D 03/19/20 [History Last Taken Unknown] losartan 50 mg-hydrochlorothiazide 12.5 mg tablet 1 tab PO DAILY 03/19/20 [History Last Taken Unknown] meloxicam 15 mg tablet 15 mg PO DAILY #30 tabs 03/19/20 [Rx Last Taken Unknown] cephalexin 500 mg capsule 500 mg PO Q6 #40 CAPSULES 11/15/22 [Rx Last Taken Unknown] hydrocodone-acetaminophen 5-325mg 5mg-325mg 1 tab PO Q6H PRN PRN Pain 3 days #10TABLETS 01/16/23 [Rx Last Taken Unknown] Allergy/AdvReac Type Severity Reaction Status Date / Time amoxicillin [Amoxicillin] Allergy Shortness Verified 01/16/23 18:25 of breath Surgical History History of hysterectomy History of tonsillectomy Social History household members: none Smoking Status: Current every day smoker tobacco type: cigarettes substance use type: does not use ROS ROS ED Constitutional Constitutional ED: Denies chills or fever(s) Cardiovascular Cardiovascular: Denies chest pain Respiratory/Chest Respiratory/Chest: Denies dyspnea Musculoskeletal Musculoskeletal: Reports other Details: Right foot pain ; Denies arthralgias, back pain, myalgias or neck pain Integumentary Denies rash Hematologic/Lymphatic Hematologic/Lymphatic: Denies easy bleeding or easy bruising EXAM Physical Exam Const Vital Signs: 01/16/23 18:25 01/16/23 18:25 Temperature 96.8 F L 96.8 F L Temperature Source Temporal Temporal Pulse Rate 71 71 Respiratory Rate 16 16 Blood Pressure 151/95 H 151/95 H Blood Pressure Mean 113 113 Positive well nourished and well developed General Appearance ED: well developed and NAD HEENT Reports moist mucous membranes normocephalic and atraumatic Eyes PERRL Eyes Narrative: Extraocular muscle tach. Resp normal respiratory effort Cardio regular rate and regular rhythm Extremity full ROM; Negative for normal to inspection Extremity Narrative: There is swelling with ecchymosis lateral aspect of the right foot. There is pain to outpatient over the fifth metatarsal. There is no pain ovation of the medial or lateral malleolus. There is no pain ovation over the anterior talofibular ligament. PT and DP pulse are palpable. There is no subungual hematoma of the toes. Neuro oriented x3, CN's II-XII intact bilaterally, moves all extremities and no sensory deficits noted Sensorium / Orientation: alert Psych mental status grossly normal Skin no wounds Skin Narrative: Bruising lateral dorsal surface of the right foot MDM MDM MDM Narrative Medical decision making narrative: Was obtained to assess for soft tissue injury versus fracture. Suspect fracture of the fifth metatarsal. Patient was medicated with Naprosyn and opiate analgesia. Radiography Chest X-Ray - ED: Read by ED Physician (Three-view x-ray of the foot reveals a nondisplaced fracture base of the fifth metatarsal, pseudo Lamb. This is independent reviewed interpreted by me.) Diagnostic Testing: Clinical Impression(s) from Imaging Studies Foot X-Ray 01/16/23 20:25 IMPRESSION: Nondisplaced fracture of the base of the fifth metatarsal. Electronically Signed: Kian Fry MD at 20:54 EDT , Treatment and Re-Evaluation Narrative: She has a pseudo Lamb fracture.. Treatment is a walking boot. She was referred to Dr. Pepper who is on for orthopedics. Discharge Plan Triage Chief Complaint: Lower Extremity Injury ED Provider: Taiwo Olivera Dx/Rx/DC Orders Clinical Impression: Nondisplaced fracture of fifth metatarsal bone of right foot Prescriptions: New hydrocodone-acetaminophen [hydrocodone-acetaminophen] 5-325 mg tablet 1 tab PO Q6H PRN PRN (Reason: Pain) 3 Days Qty: 10 0RF No Action losartan-hydrochlorothiazide 50-12.5 mg tablet 1 tab PO DAILY Patient Comments: TAKE 1 TABLET BY MOUTH ONCE DAILY buprenorphine 10 mcg/hour patch weekly 1 patch TD Q7D meloxicam 15 mg tablet 15 mg PO DAILY Qty: 30 0RF cyclobenzaprine 10 MG tablet 10 mg PO TID PRN PRN (Reason: Pain) atorvastatin 20 MG tablet 20 mg PO QHS cholecalciferol (vitamin D3) 2,000 UNIT tablet 2,000 unit PO DAILY cephalexin [cephalexin] 500 mg capsule 500 mg PO Q6 Qty: 40 0RF Primary Care Provider: David Ferreira Referrals: David Ferreira MD [Primary Care Provider] - Joe Pepper MD [Med Staff - Active Staff] - 5-7 Days Activity Restrictions/Additional Instructions: Wear the walking boot when you are up and about. Otherwise remove and apply iceto your foot. Recommend applying ice 6-10 times a day. Disposition Disposition: Home, Self Care What to do if you have Problems For any increased pain, shortness of breath, bleeding, nausea or vomiting, chestpain, or any unexpected problems, contact your Primary Care Provider. Call [facility] ([phone]) or report to the closest Emergency Room. Call 911 if necessary. 01/16/232105 <Electronically signed by Taiwo Olivera MD> Cosigner Signature (if applicable): CC: Dr. David Ferreira MD ~ Signed [facility] Work Phone: Hospital Discharge instructions 01-16-2023 Note Date & Type Note Facility 01-16-2023 Hospital Discharg e instructions Additional Instructions Wear the walking boot when you are up and about. Otherwise remove and apply ice to your foot. Recommend applying ice 6-10 times a day. [facility] Work Phone: Note 04-16-2022 Telephone Encounter - Mabel Newman [...] Dr. Fraire patient needs to see Dr. Teixeira. Patient booked with Dr. Teixeira on 04/17 @ 1:30. Attempted to contact patient of appointment change. No answer on patient's phone and unable to leave a message her voicemail is full. documented in this encounter [facility] Progress note 02-28-2022 Note Date & Type Note Facility 02-28-2022 Note HNO ID: [id number] Author: Jason Shin APRN.HELICOPTER MECHANIC Service: ? Author Type: Nurse Practitioner Type: Progress Notes Filed: 02/28/2022 6:33 PM Note Text: Patient triaged at [facility]. Here today with left hand thumb laceration. On triage exam extension of injured thumb is weak and very painful. I will refer to ER for possible tendon involvement. [facility] visit. [facility] History of Present illness Narrative 02-28-2022 Jason Shin APRN.HELICOPTER MECHANIC - 02/28/2022 6:31 PM EST Note Date & Type Note Facility 02-28-2022 History of Presen t illness Narrative Patient triaged at [facility]. Here today with left hand thumb laceration. On triage exam extension of injured thumb is weak and very painful. I will refer to ER for possible tendon involvement. [facility] visit. documented in this encounter [facility] Evaluation note Note Date & Type Note Facility Evaluation note No assessment information availa [facility] Work Phone: Evaluation note Note Date & Type Note Facility Evaluation note Diagnosis Hand injuries, left, initial encounter- Primary documented in this encounter [facility] Advance Directives No Advanced Directives Records Found Advance Directive Response Recorded Date/ Time Advance Directives No February 07, 2014 5:35pm Living Will No February 07 14 5:35pm Power of Boil Off Machine Operator Cloth No February 07, 2014 5:35pm Advance Directive Response Recorded Date/ Time Advance Directives No February 07, 2014 5:35pm Living Will No February 28, 022 8:07pm Power of Boil Off Machine Operator Cloth No February 28, 2022 8:07pm Advance Directive Response Recorded Date/ Time Advance Directives No February 07, 2014 5:35pm Living Will No January 16 6:34pm Power of Boil Off Machine Operator Cloth No January 16, 2023 6:34pm Advance Directive Response Recorded Date/ Time Advance Directives No April 17, 2023 2:49pm Living Will No April 17 24 2:49pm Power of Boil Off Machine Operator Cloth No April 17, 2023 2:49pm Summary Purpose Family History No Family History Records FoundNo Family History Records Found Chief Complaint and Reason for Visit Chief Complaint wound LOWER Chief Complaint RIGHT FOOT room 3 EORDER Additional Source Comments Goals (unrecognized section and content) Goals may be documented in a n alternate sectionGoals may be documented in an alternate sectionGoals may be documented in an alternate sectionGoals may be documented in an alternate section Source Comments (unrecognize d section and content) In the event this informatio n is protected by the Federal Confidentiality of Alcohol and Drug Abuse Patient Records regulations: The Federal rules restrict any use of the information to criminally investigate or prosecute any alcohol or drug abuse patient.[facility] the event this information is protected by the Federal Confidentiality of Alcohol and Drug Abuse Patient Records regulations: The Federal rules restrict any use of the information to criminally investigate or prosecute any alcohol or drug abuse patient.[facility] Reason for Visit (unrecogniz ed section and content) Reason Comments Laceration L thumb cut at work x45 mins Specialty Diagnoses / Procedures Referred By Contac t Referred To Contact [facility] Diagnoses Cut of finger Procedures REFERRAL TO [facility] [address] [place] [address] Referral ID Status Reason Start Date Expiration Date V isits Requested Visits Authorized [id number] Outside PCP 02/28/2022 04/29/2022 1 1 Reason Comments Upcomining appointment Care Teams (unrecognized sec tion and content) District Extension Service Agent Relationship Specialty Start Date End Date Nory Faustin MD [address] [facility] [place] [phone] PCP - General Family Medicine 06/20/13 District Extension Service Agent Relationship Specialty Start Date End Date Nory Faustin MD [address] [facility] [place], [place] [phone] PCP - General Family Medicine 06/20/13 Team Status: Active Member Role Status Dates Dr. David Ferreira MD Family Provider Active Dr. David Ferreira MD Primary Care Provider Active Team Status: Inactive Member Role Status Dates Dr. David Ferreira MD Primary Care Pr ovider, Attending Provider, Referring Provider Active Team Status: Inactive Member Role Status Dates Dr. David Ferreira MD Primary Care Provider Active Dr. Patricia Gonzalez MD Attending Provider, Referring Pr ovider Active Team Status: Inactive Member Role Status Dates Dr. David Ferreira MD Primary Care Provider Active Dr. Taiwo Olivera MD Emergency Provider Active Team Status: Inactive Member Role Status Dates Dr. David Ferreira MD Primary Care Provider Active Dr. Abdoulaye Parsons DO Attending Provider, Emergency P inga Active Team Status: Inactive Member Role Status Dates Dr. David Ferreira MD Primary Care Provider, Referr ing Provider Active Joe Pepper MD Attending Provider Active Team Status: Inactive Member Role Status Dates Dr. David Ferreira MD Primary Care Provider Active Dr. Kalia Hall MD Attending Provider Active INFORMATION SOURCE (unrecogn ized section and content) DATE CREATED AUTHOR 04/16/2022 [facility] DATE CREATED AUTHOR AUTHOR'S ORGANIZ ATION 09/28/2024 [facility] FOR RECORDS PERTAINING TO PATIENTS WHO ARE [...] BE BASED ON THE PRIMARY CLINICAL RECORDS. [employer] provides no warranty or guarantee of the accuracy or completeness of information in this document.
[2024-10-30 08:18] LABS: Mucous, Urine 0 SEEN /hpf (<or=2+)
[2024-10-30 08:49] LABS: Color, Urine Yellow (Yellow); Glucose, Dipstick Normal (Normal); Ketone-Dipstick Negative (Negative); Leukocyte Esterase-Dipstick 25 /ul (Negative); Nitrite-Dipstick Negative (Negative); Occult Blood-Urine 250 /ul (Negative); Protein-Dipstick 30 mg/dl (Negative); Specific Gravity, Urine 1.015 (1.002-1.030); Urine Bilirubin Dipstick Negative (Negative)
[2024-10-30 08:56] LABS: Red Blood Cells-Urine 25-50 SEEN /hpf (0-5); Squamous Epithelial Cells - UA 0-5 SEEN /hpf (5-10)
--- NOTE | 2024-10-30 09:25 | CT_ITS ---
PROCEDURE: ABDOMEN/PELVIS WITHOUT CONT 10/30/2024 REASON FOR EXAM: HEMATURIA TECHNIQUE: ABDOMEN/PELVIS WITHOUT CONT Noncontrast technique limits evaluation of the abdominal and pelvic viscera. Coronal and Sagittal reconstruction series were provided. One or more dose reduction techniques were used (e.g., Automated exposure control, adjustment of the mA and/or kV according to patient size, use of iterative reconstruction technique). RADIATION DOSE SUMMARY: CTDlvol: 11 mGy DLP: 563 mGycm COMPARISON: 11/15/2022. FINDINGS: Peripheral soft tissues are unremarkable. Degenerative changes of the spine. Dextroscoliosis. Bilateral renal calculi. Right ureterovesicular junction 2 mm calculus with [id number] upstream hydroureteronephrosis. 5 mm calculus within the urinary bladder. The liver, gallbladder, pancreas, spleen, adrenals are unremarkable. Normal caliber large and small bowel. CT/Abdomen/Pelvis without Cont IMPRESSION: Right ureterovesicular junction 2 mm calculus with nklu-li-dzerzpon upstream hy droureteronephrosis. Bilateral nephrolithiasis. Urinary bladder calculus. Reading Location: [id number]
[2024-10-30 11:35] VITALS: BP 186/95; PULSE 73; RESP 17; TEMP 36.1; O2SAT 96
== END 2024-10-30 11:35 | disposition home or self-care (01) ==
PROVIDERS: Emergency Provider Emergency Medicine; PCP Family Medicine; Visit Provider Emergency Medicine
DX: N20.2 Calculus of kidney with calculus of ureter (principal); F17.210 Nicotine dependence, cigarettes, uncomplicated; R31.9 Hematuria, unspecified; I10 Essential (primary) hypertension
CPT/HCPCS: 74176; 81001; 99282